=== PATIENT | male | born 2000 | race Caucasian/White ===

== ENCOUNTER 2020-01-22 15:54 | Emergency (ER) | payer MEDICAID ==
[~2020-01-22] VITALS: Ht 188 cm; Wt 80.2 kg
[2020-01-22] MEDS ORDERED: LORazepam 2 mg/ml vial IV ONE (17:10)
[2020-01-22] MEDS ORDERED: normal saline 1000ML IV soln IVB ONE (17:10)
[2020-01-22] MEDS ORDERED: pantoprazole 40 MG vial IV ONE (17:10)
[2020-01-22 17:28] LABS: BASOPHILS % (AUTO) 0.2 % (0-1); EOSINOPHILS % (AUTO) 0 % (0-6); HEMATOCRIT 44.6 % (42.0-52.0); HEMOGLOBIN 15.6 g/dl (14.0-17.9); LYMPHOCYTES # (AUTO) 1.6 X10'3 (1.1-4.8); LYMPHOCYTES % (AUTO) 10.9 % (21-51); MEAN CORPUSCULAR HEMOGLOBIN 30.7 PG (27.0-31.0); MEAN CORPUSCULAR HGB CONC 35.1 g/dL (33.0-36.5); MEAN CORPUSCULAR VOLUME 87.6 FL (78-98); MEAN PLATELET VOLUME 8.7 FL (7.4-10.4); MONOCYTES # (AUTO) 0.9 X10'3 (0-0.9); MONOCYTES % (AUTO) 6.4 % (2-12); NEUTROPHILS # (AUTO) 11.9 X10'3 (1.8-7.7); NEUTROPHILS % (AUTO) 82.5 % (42-75); PLATELET COUNT 200 X10'3 (140-440); RED BLOOD COUNT 5.09 X10'6 (4.70-6.10); RED CELL DISTRIBUTION WIDTH 12.5 % (11.5-14.5); WHITE BLOOD COUNT 14.5 X10'3 (4.5-11.0)
[2020-01-22 17:43] LABS: ALANINE AMINOTRANSFERASE 26 U/L (12-78); ALBUMIN 5.4 G/DL (3.4-5.0); ALBUMIN/GLOBULIN RATIO 1.5 (1.1-1.5); ALKALINE PHOSPHATASE 90 IU/L (20-180); ANION GAP 19 (8-16); ASPARTATE AMINO TRANSFERASE 41 U/L (10-37); BILIRUBIN,TOTAL 1.8 MG/DL (0.1-1.0); BLOOD UREA NITROGEN 22 MG/DL (7-18); BUN/CREATININE RATIO 14.1 (5.4-32.0); CALCIUM 10.5 MG/DL (8.5-10.1); CHLORIDE 97 MMOL/L (99-107); CREATININE 1.56 MG/DL (0.60-1.10); GLUCOSE 140 MG/DL (70-104); LIPASE 60 U/L (73-393); MAGNESIUM 1.4 MG/DL (1.5-2.4); SODIUM 137 MMOL/L (135-145); TOTAL CARBON DIOXIDE 21.2 MMOL/L (24-32); eGFR 58 ML/MIN
[2020-01-22 17:44] LABS: ETHANOL < 0.010 GM/DL (0.0-0.010)
[2020-01-22 17:47] LABS: POTASSIUM 2.8 MMOL/L (3.5-5.1)
[2020-01-22 17:54] LABS: PARTIAL THROMBOPLASTIN TIME 26 SECONDS (22-32)
[2020-01-22] MEDS ORDERED: potassium Cl 10 mEq/100mL bag IV ONE ×2 (18:05→19:30)
[2020-01-22] MEDS ORDERED: magnesium 2GM in 50ml NS 50 ML IV ONE ×2 (18:05→20:30)
[2020-01-22] MEDS ORDERED: ondansetron/PF 4mg/2ml inj IV ONE (19:50)
[2020-01-22] MEDS ORDERED: ONDA4TAB6 PO (20:38)
--- NOTE | 2020-01-22 20:49 | NUR ---
Pt walked out of room, after admitting to unhooking IV and undoing bed lock. reasured pt, updated on care plan and that can dc after electrolyte replacement is finished per
[2020-01-22 21:06] VITALS: BP 112/64
== END 2020-01-22 21:07 | disposition home or self-care (01) ==
LOC: ER 15:56
DX: E87.6 Hypokalemia (principal); E83.42 Hypomagnesemia; R10.32 Left lower quadrant pain; K92.0 Hematemesis; F15.90 Other stimulant use, unspecified, uncomplicated; Z98.890 Other specified postprocedural states; Z79.899 Other long term (current) drug therapy
CPT/HCPCS: 36415; 80053; 80320; 83690; 83735; 85025; 85610; 85730; 93005; 96365; 96366; 96368; 96375; 99284; C9113; J2060; J2405; J3475; J3480; J7030

== ENCOUNTER 2020-01-24 08:48 | Emergency (ER) | payer MEDICAID ==
[~2020-01-24] VITALS: Ht 188 cm; Wt 79.5 kg
[~2020-01-24 08:48] MED LIST: ONDA4TAB6 PO
[2020-01-24 09:03] VITALS: BP 160/81
--- NOTE | 2020-01-24 09:29 | NUR ---
PT ACTIVELY VOMITING WAITING FOR A LAB DRAW, ASKS FOR A GLASS OF WATER. INSTRUCT PT NO DRINKING UNTIL HE SEES THE DOCTOR. PT THEN LEAVES.
--- NOTE | 2020-01-24 09:39 | NUR ---
Attempted to call patient via listed number due to leaving ED prior to being seen. No answer; left voice mail.
== END 2020-01-24 09:36 | disposition left against medical advice (07) ==
LOC: ER 08:48
DX: R10.9 Unspecified abdominal pain (principal); R11.10 Vomiting, unspecified; Z53.21 Procedure and treatment not carried out due to patient leaving prior to being seen by health care provider

== ENCOUNTER 2020-06-12 20:01 | Emergency (ER) | payer MEDICAID ==
[~2020-06-12] VITALS: Ht 182.9 cm; Wt 68.2 kg
[2020-06-12 20:13] VITALS: BP 150/74
--- NOTE | 2020-06-12 20:54 | NUR ---
MUNIRA [phone] GIRLFRIEND CALL WITH UPDATE
[2020-06-12] MEDS ORDERED: normal saline 1000ml 1,000 ML IV ONE (22:15)
[2020-06-12] MEDS ORDERED: pantoprazole 40 MG vial IV ONE (22:15)
[2020-06-12] MEDS ORDERED: proCHLORperazine 10 MG/2 ml inj IV ONE (22:15)
[2020-06-12] MEDS ORDERED: haloperidol lactate 5mg/ml inj IM ONE (22:15)
[2020-06-12] MEDS ORDERED: famotidine/PF 10 mg/ml inj IV ONE (22:15)
[2020-06-12] MEDS ORDERED: ondansetron/PF 4mg/2ml inj IV ONE (22:15)
== END 2020-06-12 23:27 | disposition home or self-care (01) ==
LOC: ER 20:02
DX: R11.15 Cyclical vomiting syndrome unrelated to migraine (principal); R11.2 Nausea with vomiting, unspecified; K22.6 Gastro-esophageal laceration-hemorrhage syndrome; F12.90 Cannabis use, unspecified, uncomplicated; F15.90 Other stimulant use, unspecified, uncomplicated; Z98.890 Other specified postprocedural states; Z79.899 Other long term (current) drug therapy
CPT/HCPCS: 96361; 96372; 96374; 96375; 99284; C9113; J0780; J1630; J2405; J3490; J7030

== ENCOUNTER 2020-10-30 15:13 | Emergency (ER) | payer MEDICAID ==
[~2020-10-30] VITALS: Ht 185.4 cm; Wt 80.0 kg
[~2020-10-30 15:13] MED LIST changes: +NO HOME MEDS; -ONDA4TAB6 PO
[2020-10-30] MEDS ORDERED: diphenhydrAMINE 50 mg/ml inj IV ONE (15:20)
[2020-10-30] MEDS ORDERED: haloperidol lactate 5mg/ml inj IM ONE (15:20)
[2020-10-30] MEDS ORDERED: normal saline 1000ML IV soln IVB ONE ×3 (15:20→18:30)
[2020-10-30] MEDS ORDERED: LORazepam 2 mg/ml vial IV ONE (15:20)
[2020-10-30] MEDS ORDERED: magnesium 2GM in 50ml NS 50 ML IV ONE (15:20)
[2020-10-30 15:57] LABS: BASOPHILS # (AUTO) 0.1 X10'3 (0-0.2); BASOPHILS % (AUTO) 0.4 % (0-1); EOSINOPHILS % (AUTO) 0.1 % (0-6); HEMATOCRIT 41.7 % (42.0-52.0); HEMOGLOBIN 14.3 g/dl (14.0-17.9); LYMPHOCYTES # (AUTO) 1.2 X10'3 (1.1-4.8); LYMPHOCYTES % (AUTO) 10.2 % (21-51); MEAN CORPUSCULAR HGB CONC 34.3 g/dL (33.0-36.5); MEAN CORPUSCULAR VOLUME 87.5 FL (78-98); MEAN PLATELET VOLUME 8.7 FL (7.4-10.4); MONOCYTES # (AUTO) 0.7 X10'3 (0-0.9); MONOCYTES % (AUTO) 6.3 % (2-12); NEUTROPHILS # (AUTO) 9.4 X10'3 (1.8-7.7); PLATELET COUNT 198 X10'3 (140-440); RED BLOOD COUNT 4.76 X10'6 (4.70-6.10); RED CELL DISTRIBUTION WIDTH 12.7 % (11.5-14.5); WHITE BLOOD COUNT 11.4 X10'3 (4.5-11.0)
[2020-10-30 16:19] LABS: ALANINE AMINOTRANSFERASE 23 U/L (12-78); ALBUMIN 4.7 G/DL (3.4-5.0); ALBUMIN/GLOBULIN RATIO 1.6 (1.1-1.5); ALKALINE PHOSPHATASE 92 IU/L (20-180); ANION GAP 16 (8-16); ASPARTATE AMINO TRANSFERASE 18 U/L (10-37); BILIRUBIN,TOTAL 0.6 MG/DL (0.1-1.0); BLOOD UREA NITROGEN 17 MG/DL (7-18); BUN/CREATININE RATIO 15.6 (5.4-32.0); CALCIUM 9.2 MG/DL (8.5-10.1); CHLORIDE 105 MMOL/L (99-107); CREATININE 1.09 MG/DL (0.60-1.10); GLUCOSE 130 MG/DL (70-104); LIPASE 57 U/L (73-393); POTASSIUM 3.1 MMOL/L (3.5-5.1); SODIUM 142 MMOL/L (135-145); TOTAL CARBON DIOXIDE 21.2 MMOL/L (24-32); TOTAL PROTEIN 7.7 G/DL (6.4-8.2); eGFR 86 ML/MIN
[2020-10-30] MEDS ORDERED: LURA20TA PO (17:11)
[2020-10-30] MEDS ORDERED: MULT-1085 PO (17:11)
[2020-10-30] MEDS ORDERED: potassium Cl 20 mEq SR tablet PO STA (17:34)
[2020-10-30 17:37] LABS: CLARITY,URINE CLEAR (Clear); COLOR,URINE YELLOW (Yellow); GLUCOSE, URINE NEGATIVE (Neg); KETONES,URINE >=80 mg/dl (Neg); LEUKOCYTE ESTERASE ,URINE NEGATIVE (Neg); NITRITES, URINE NEGATIVE (Neg); OCCULT BLOOD,URINE NEGATIVE (Neg); PH,URINE >=9.0 (4.8-8.0); PROTEIN,URINE TRACE mg/dl (Neg); UROBILINOGEN,URINE 0.2 E.U/dL (0.2-1.0)
[2020-10-30 18:06] LABS: UA COLLECTION TYPE CLN CATCH MIDSTREAM
[2020-10-30 18:08] LABS: BACTERIA,URINE NONE SEEN /HPF (Neg); MUCUS STRANDS FEW /LPF (Neg); RBC,URINE 0-2 /HPF (0-2); SQUAMOUS EPITHELIAL CELL,UR FEW /LPF (FEW); WBC,URINE 0-4 /HPF (0-4)
[2020-10-30] MEDS ORDERED: ONDA4TAB12 PO (18:39)
[2020-10-30] MEDS ORDERED: POTA20TA19 PO (18:39)
[2020-10-30 18:51] VITALS: BP 135/77
== END 2020-10-30 20:38 | disposition home or self-care (01) ==
LOC: ER 15:14
DX: R11.15 Cyclical vomiting syndrome unrelated to migraine (principal); R11.2 Nausea with vomiting, unspecified; R10.33 Periumbilical pain; K59.00 Constipation, unspecified; F12.90 Cannabis use, unspecified, uncomplicated; F15.90 Other stimulant use, unspecified, uncomplicated; Z98.890 Other specified postprocedural states; Z72.89 Other problems related to lifestyle; Z79.899 Other long term (current) drug therapy
CPT/HCPCS: 36415; 80053; 81001; 83690; 85025; 96365; 96366; 96372; 96375; 99284; J1200; J1630; J2060; J3475; J7030

== ENCOUNTER 2020-11-01 10:26 | Emergency (ER) | payer MEDICAID ==
[~2020-11-01] VITALS: Ht 188 cm; Wt 79.5 kg
[~2020-11-01 10:26] MED LIST changes: +LURA20TA PO; +MULT-1085 PO; +ONDA4TAB12 PO; +POTA20TA19 PO
[2020-11-01] MEDS ORDERED: diphenhydrAMINE 50 mg/ml inj IV ONE (14:10)
[2020-11-01] MEDS ORDERED: haloperidol lactate 5mg/ml inj IM ONE (14:10)
[2020-11-01] MEDS ORDERED: ondansetron/PF 4mg/2ml inj IV ONE (14:10)
[2020-11-01] MEDS ORDERED: LORazepam 2 mg/ml vial IV ONE (14:10)
[2020-11-01] MEDS ORDERED: normal saline 1000ml 1,000 ML IV ONE (14:10)
[2020-11-01 14:33] LABS: BASOPHILS % (AUTO) 0.2 % (0-1); EOSINOPHILS % (AUTO) 0 % (0-6); HEMATOCRIT 41.9 % (42.0-52.0); HEMOGLOBIN 14.3 g/dl (14.0-17.9); LYMPHOCYTES # (AUTO) 0.8 X10'3 (1.1-4.8); LYMPHOCYTES % (AUTO) 7.4 % (21-51); MEAN CORPUSCULAR HGB CONC 34.2 g/dL (33.0-36.5); MEAN CORPUSCULAR VOLUME 87.9 FL (78-98); MEAN PLATELET VOLUME 8.8 FL (7.4-10.4); MONOCYTES # (AUTO) 0.4 X10'3 (0-0.9); MONOCYTES % (AUTO) 3.6 % (2-12); NEUTROPHILS # (AUTO) 9.3 X10'3 (1.8-7.7); NEUTROPHILS % (AUTO) 88.8 % (42-75); PLATELET COUNT 206 X10'3 (140-440); RED BLOOD COUNT 4.77 X10'6 (4.70-6.10); RED CELL DISTRIBUTION WIDTH 12.9 % (11.5-14.5); WHITE BLOOD COUNT 10.5 X10'3 (4.5-11.0)
[2020-11-01 14:52] LABS: ALANINE AMINOTRANSFERASE 30 U/L (12-78); ALBUMIN 4.9 G/DL (3.4-5.0); ALBUMIN/GLOBULIN RATIO 1.5 (1.1-1.5); ALKALINE PHOSPHATASE 94 IU/L (20-180); ANION GAP 15 (8-16); ASPARTATE AMINO TRANSFERASE 30 U/L (10-37); BILIRUBIN,TOTAL 0.6 MG/DL (0.1-1.0); BLOOD UREA NITROGEN 15 MG/DL (7-18); BUN/CREATININE RATIO 15.6 (5.4-32.0); CALCIUM 9.4 MG/DL (8.5-10.1); CHLORIDE 101 MMOL/L (99-107); CREATININE 0.96 MG/DL (0.60-1.10); GLUCOSE 121 MG/DL (70-104); LIPASE 99 U/L (73-393); POTASSIUM 3.3 MMOL/L (3.5-5.1); SODIUM 138 MMOL/L (135-145); TOTAL CARBON DIOXIDE 21.9 MMOL/L (24-32); TOTAL PROTEIN 8.1 G/DL (6.4-8.2); eGFR > 90 ML/MIN
[2020-11-01 15:01] LABS: CLARITY,URINE CLEAR (Clear); COLOR,URINE YELLOW (Yellow); GLUCOSE, URINE NEGATIVE (Neg); KETONES,URINE TRACE mg/dl (Neg); LEUKOCYTE ESTERASE ,URINE NEGATIVE (Neg); NITRITES, URINE NEGATIVE (Neg); OCCULT BLOOD,URINE NEGATIVE (Neg); PH,URINE 8.5 (4.8-8.0); PROTEIN,URINE TRACE mg/dl (Neg); UROBILINOGEN,URINE 0.2 E.U/dL (0.2-1.0)
[2020-11-01] MEDS ORDERED: potassium Cl 20 mEq SR tablet PO ONE (15:05)
[2020-11-01] MEDS ORDERED: PROC25SU31 RC (15:07)
[2020-11-01 15:09] LABS: UA COLLECTION TYPE VOIDED
[2020-11-01 15:10] LABS: BACTERIA,URINE NONE SEEN /HPF (Neg); MUCUS STRANDS FEW /LPF (Neg); RBC,URINE 0-2 /HPF (0-2); SQUAMOUS EPITHELIAL CELL,UR FEW /LPF (FEW); WBC,URINE 0-4 /HPF (0-4)
[2020-11-01 15:25] VITALS: BP 128/58
== END 2020-11-01 15:27 | disposition home or self-care (01) ==
LOC: ER 10:26
DX: R11.2 Nausea with vomiting, unspecified (principal); R10.84 Generalized abdominal pain; F12.90 Cannabis use, unspecified, uncomplicated; F15.90 Other stimulant use, unspecified, uncomplicated; Z72.89 Other problems related to lifestyle; Z98.890 Other specified postprocedural states; Z79.899 Other long term (current) drug therapy
CPT/HCPCS: 36415; 80053; 81001; 83690; 85025; 96361; 96372; 96374; 96375; 99284; J1200; J1630; J2060; J2405; J7030

== ENCOUNTER 2020-11-04 16:18 | Emergency (ER) | payer MEDICAID ==
[~2020-11-04] VITALS: Ht 188 cm; Wt 79.5 kg
[~2020-11-04 16:18] MED LIST changes: -NO HOME MEDS; +PROC25SU31 RC
[2020-11-04 17:06] LABS: BASOPHILS # (AUTO) 0.1 X10'3 (0-0.2); BASOPHILS % (AUTO) 0.5 % (0-1); EOSINOPHILS # (AUTO) 0.2 X10'3 (0-0.9); EOSINOPHILS % (AUTO) 2.2 % (0-6); HEMATOCRIT 44.9 % (42.0-52.0); HEMOGLOBIN 15.3 g/dl (14.0-17.9); LYMPHOCYTES % (AUTO) 20.1 % (21-51); MEAN CORPUSCULAR HEMOGLOBIN 29.7 PG (27.0-31.0); MEAN CORPUSCULAR VOLUME 87.5 FL (78-98); MEAN PLATELET VOLUME 8.4 FL (7.4-10.4); MONOCYTES # (AUTO) 0.7 X10'3 (0-0.9); MONOCYTES % (AUTO) 7.3 % (2-12); NEUTROPHILS # (AUTO) 7.1 X10'3 (1.8-7.7); NEUTROPHILS % (AUTO) 69.9 % (42-75); PLATELET COUNT 245 X10'3 (140-440); RED BLOOD COUNT 5.13 X10'6 (4.70-6.10); RED CELL DISTRIBUTION WIDTH 13.1 % (11.5-14.5); WHITE BLOOD COUNT 10.1 X10'3 (4.5-11.0)
[2020-11-04 17:20] LABS: ALANINE AMINOTRANSFERASE 33 U/L (12-78); ALBUMIN 4.7 G/DL (3.4-5.0); ALBUMIN/GLOBULIN RATIO 1.3 (1.1-1.5); ALKALINE PHOSPHATASE 99 IU/L (20-180); ANION GAP 10 (8-16); ASPARTATE AMINO TRANSFERASE 23 U/L (10-37); BILIRUBIN,TOTAL 0.8 MG/DL (0.1-1.0); BLOOD UREA NITROGEN 23 MG/DL (7-18); BUN/CREATININE RATIO 20.4 (5.4-32.0); CALCIUM 9.5 MG/DL (8.5-10.1); CHLORIDE 104 MMOL/L (99-107); CREATININE 1.13 MG/DL (0.60-1.10); GLUCOSE 92 MG/DL (70-104); POTASSIUM 3.4 MMOL/L (3.5-5.1); SODIUM 140 MMOL/L (135-145); TOTAL CARBON DIOXIDE 25.8 MMOL/L (24-32); TOTAL PROTEIN 8.2 G/DL (6.4-8.2); eGFR 83 ML/MIN
[2020-11-04 17:32] LABS: ETHANOL < 0.010 GM/DL (0.0-0.010)
[2020-11-04 18:04] LABS: CLARITY,URINE CLOUDY (Clear); COLOR,URINE YELLOW (Yellow); GLUCOSE, URINE NEGATIVE (Neg); KETONES,URINE NEGATIVE (Neg); LEUKOCYTE ESTERASE ,URINE NEGATIVE (Neg); NITRITES, URINE NEGATIVE (Neg); OCCULT BLOOD,URINE NEGATIVE (Neg); PH,URINE 5.5 (4.8-8.0); PROTEIN,URINE 100 mg/dl (Neg)
[2020-11-04 18:07] LABS: UA COLLECTION TYPE CLN CATCH MIDSTREAM
[2020-11-04 18:13] LABS: MUCUS STRANDS MANY /LPF (Neg); SQUAMOUS EPITHELIAL CELL,UR FEW /LPF (FEW)
[2020-11-04 18:14] LABS: BACTERIA,URINE 1+ /HPF (Neg); RBC,URINE 0-2 /HPF (0-2); URINE AMPHETAMINE SCREEN POSITIVE (Neg); URINE BARBITUATE SCREEN NEGATIVE (Neg); URINE BENZODIAZEPINES SCREEN NEGATIVE (Neg); URINE CANNABINOID SCREEN POSITIVE (Neg); URINE COCAINE SCREEN NEGATIVE (Neg); URINE METHADONE SCREEN NEGATIVE (Neg); URINE OPIATE SCREEN NEGATIVE (Neg); URINE PHENCYCLIDINE SCREEN NEGATIVE (Neg)
--- NOTE | 2020-11-04 18:27 | NUR ---
Patient has attempted to hang himself recently.
[2020-11-04] MEDS ORDERED: ONDA-103 PO (18:48)
[2020-11-04] MEDS ORDERED: lurasidone 20mg tablet PO SCH (19:00)
[2020-11-04] MEDS ORDERED: ondansetron 4mg rapidly disintigrating tab PO PRN (19:05)
--- NOTE | 2020-11-04 20:36 | NUR ---
Pt tearful at start of shift. He denied current SI but said he was ashamed of his earlier attempt to hang himself which his girlfriend witnessed. He did not know how his girlfriend was feeling and he could not call her because he broke the home phone in an attemp to keep her from calling the police. Shortly after that his girlfriend called pt spoke to her and became calmer and not tearful. Med recondilliation completed with pt. He took Latuda and Trazodone is resting queitly in bed at this time.
[2020-11-04] MEDS ORDERED: traZODone 50mg tablet PO SCH ×2 (21:00→21:05)
--- NOTE | 2020-11-05 02:40 | NUR ---
Pt has been sleeping without interuption.
--- NOTE | 2020-11-05 06:30 | NUR ---
Pt is sleeping on right side, respirations even and unlabored.
--- NOTE | 2020-11-05 06:58 | NUR ---
PT'S FATHER, RAVEN CALLED. HIS PHONE NUMBER IS [phone].
--- NOTE | 2020-11-05 08:35 | NUR ---
Pt sleeping in supine position, no distress noted. Pt ate 100% of his breakfast.
--- NOTE | 2020-11-05 08:43 | NUR ---
PACKET FAXED TO [facility]
--- NOTE | 2020-11-05 10:08 | NUR ---
Patient appears to be sleeping, no signs/symptoms of distress.
--- NOTE | 2020-11-05 11:04 | NUR ---
PT'S GIRLFRIEND, GUTIERREZ LOPEZNARY CALLED TO SEE WHEN THE PT WILL BE DISCHARGED. I TOLD HER THE PT WILL CONTACT HER WHEN THAT TIME COMES. HER PHONE NUMBER IS [phone].
--- NOTE | 2020-11-05 12:31 | NUR ---
Pt sitting on bed eating a snack. Pt has a follow up appointment with [facility] tomorrow 11/06 at 1230.
--- NOTE | 2020-11-05 13:09 | NUR ---
Left message with Tami to call unit. Pt is ready for discharge and needs a ride.
[2020-11-05 13:27] VITALS: BP 121/63
--- NOTE | 2020-11-05 13:36 | NUR ---
DISCHARGE NOTE: Patient was discharged from unit at 1333. Pt was escorted to lobby with security. Pt's fiance' was here to pick him up. Pt denies S/I, H/I, A/VH. Pt was A&Ox4. Pt left with all personal belongings. Discharge instructions were reviewed with patient and pt verbalized understanding. Pt has a follow up appointment with [facility] tomorrow 11/06 at 1230.
== END 2020-11-05 13:37 | disposition home or self-care (01) ==
LOC: ER 16:19
DX: T14.91XA Suicide attempt, initial encounter (principal); F31.9 Bipolar disorder, unspecified; F12.90 Cannabis use, unspecified, uncomplicated; F15.90 Other stimulant use, unspecified, uncomplicated; Z72.89 Other problems related to lifestyle; Z98.890 Other specified postprocedural states; Z79.899 Other long term (current) drug therapy; X83.8XXA Intentional self-harm by other specified means, initial encounter; Y93.89 Activity, other specified; Y92.89 Other specified places as the place of occurrence of the external cause; Y99.8 Other external cause status
CPT/HCPCS: 36415; 80053; 80305; 80320; 81001; 84443; 85025; 99284

== ENCOUNTER 2020-11-08 23:41 | Emergency (ER) | payer MEDICAID ==
[~2020-11-08] VITALS: Ht 188 cm; Wt 79.5 kg
[~2020-11-08 23:41] MED LIST changes: -MULT-1085 PO; +ONDA-103 PO; -ONDA4TAB12 PO; -POTA20TA19 PO; -PROC25SU31 RC
[2020-11-08] MEDS ORDERED: normal saline 1000ml 1,000 ML IV ONE (23:55)
[2020-11-08] MEDS ORDERED: diphenhydrAMINE 50 mg/ml inj IV ONE (23:55)
[2020-11-08] MEDS ORDERED: haloperidol lactate 5mg/ml inj IM ONE (23:55)
[2020-11-09 01:07] VITALS: BP 121/61
[2020-11-10] MEDS ORDERED: ONDA4TAB6 PO (09:16)
[2020-11-10] MEDS ORDERED: PROC25SU31 RC (09:16)
== END 2020-11-09 01:39 | disposition home or self-care (01) ==
LOC: ER 23:41
DX: R11.2 Nausea with vomiting, unspecified (principal); F12.90 Cannabis use, unspecified, uncomplicated; F15.90 Other stimulant use, unspecified, uncomplicated; Z72.89 Other problems related to lifestyle; Z98.890 Other specified postprocedural states; Z79.899 Other long term (current) drug therapy
CPT/HCPCS: 96361; 96372; 96374; 99284; J1200; J1630; J7030

== ENCOUNTER 2020-11-10 09:08 | Emergency (ER) | payer MEDICAID ==
[~2020-11-10] VITALS: Ht 188 cm; Wt 79.5 kg
[2020-11-10] MEDS ORDERED: haloperidol lactate 5mg/ml inj IM ONE (09:15)
[2020-11-10] MEDS ORDERED: normal saline 1000ML IV soln IVB ONE (09:15)
[2020-11-10] MEDS ORDERED: ondansetron/PF 4mg/2ml inj IV ONE (09:15)
[2020-11-10] MEDS ORDERED: PROC25SU31 RC (09:16)
[2020-11-10] MEDS ORDERED: ONDA4TAB6 PO (09:16)
[2020-11-10 10:03] LABS: ALBUMIN 4.7 G/DL (3.4-5.0); ANION GAP 13 (8-16); BLOOD UREA NITROGEN 20 MG/DL (7-18); BUN/CREATININE RATIO 19.8 (5.4-32.0); CALCIUM 9.3 MG/DL (8.5-10.1); CHLORIDE 100 MMOL/L (99-107); CREATININE 1.01 MG/DL (0.60-1.10); GLUCOSE 131 MG/DL (70-104); POTASSIUM 3.2 MMOL/L (3.5-5.1); SODIUM 136 MMOL/L (135-145); TOTAL CARBON DIOXIDE 23.4 MMOL/L (24-32); eGFR > 90 ML/MIN
[2020-11-10] MEDS ORDERED: potassium Cl 20 mEq SR tablet PO STA (10:07)
[2020-11-10 11:54] VITALS: BP 147/89
== END 2020-11-10 11:55 | disposition home or self-care (01) ==
LOC: ER 09:08
DX: F12.188 Cannabis abuse with other cannabis-induced disorder (principal); E87.6 Hypokalemia; R10.84 Generalized abdominal pain; F15.90 Other stimulant use, unspecified, uncomplicated; Z72.89 Other problems related to lifestyle; Z79.899 Other long term (current) drug therapy
CPT/HCPCS: 36415; 80048; 96361; 96372; 96374; 99284; J1630; J2405; J7030

== ENCOUNTER 2020-12-11 06:11 | Emergency (ER) | payer MEDICAID ==
[~2020-12-11] VITALS: Ht 188 cm; Wt 78.2 kg
[~2020-12-11 06:11] MED LIST changes: +ONDA4TAB6 PO; +PROC25SU31 RC
[2020-12-11] MEDS ORDERED: ondansetron/PF 4mg/2ml inj IV ONE (06:35)
[2020-12-11] MEDS ORDERED: normal saline 1000ML IV soln IVB ONE (06:35)
[2020-12-11] MEDS ORDERED: ondansetron 4mg rapidly disintigrating tab PO ONE (06:35)
[2020-12-11 07:09] LABS: BASOPHILS % (AUTO) 0.2 % (0-1); EOSINOPHILS # (AUTO) 0.1 X10'3 (0-0.9); EOSINOPHILS % (AUTO) 0.6 % (0-6); HEMOGLOBIN 14.2 g/dl (14.0-17.9); LYMPHOCYTES # (AUTO) 2.3 X10'3 (1.1-4.8); LYMPHOCYTES % (AUTO) 16.6 % (21-51); MEAN CORPUSCULAR HGB CONC 34.7 g/dL (33.0-36.5); MEAN CORPUSCULAR VOLUME 86.4 FL (78-98); MEAN PLATELET VOLUME 8.5 FL (7.4-10.4); MONOCYTES # (AUTO) 1.1 X10'3 (0-0.9); MONOCYTES % (AUTO) 7.9 % (2-12); NEUTROPHILS # (AUTO) 10.2 X10'3 (1.8-7.7); NEUTROPHILS % (AUTO) 74.7 % (42-75); PLATELET COUNT 239 X10'3 (140-440); RED BLOOD COUNT 4.75 X10'6 (4.70-6.10); RED CELL DISTRIBUTION WIDTH 12.6 % (11.5-14.5); WHITE BLOOD COUNT 13.6 X10'3 (4.5-11.0)
[2020-12-11 07:15] LABS: CLARITY,URINE SLIGHTLY CLOUDY (Clear); COLOR,URINE YELLOW (Yellow); GLUCOSE, URINE NEGATIVE (Neg); KETONES,URINE TRACE mg/dl (Neg); LEUKOCYTE ESTERASE ,URINE TRACE (Neg); NITRITES, URINE NEGATIVE (Neg); OCCULT BLOOD,URINE NEGATIVE (Neg); PH,URINE 5.5 (4.8-8.0); PROTEIN,URINE 30 mg/dl (Neg)
[2020-12-11 07:21] LABS: UA COLLECTION TYPE CLN CATCH MIDSTREAM
[2020-12-11 07:23] LABS: MUCUS STRANDS MANY /LPF (Neg); SQUAMOUS EPITHELIAL CELL,UR FEW /LPF (FEW)
[2020-12-11 07:25] LABS: COARSE GRANULAR CAST 0-3 /LPF (NEGATIVE); FINE GRANULAR CAST 0-3 /LPF (NEGATIVE)
[2020-12-11 07:27] LABS: BACTERIA,URINE NONE SEEN /HPF (Neg); RBC,URINE 0-2 /HPF (0-2)
[2020-12-11 07:30] LABS: HYALINE CASTS 0-3 /LPF (NEGATIVE)
[2020-12-11 07:32] LABS: URINE AMPHETAMINE SCREEN NEGATIVE (Neg); URINE BARBITUATE SCREEN NEGATIVE (Neg); URINE BENZODIAZEPINES SCREEN NEGATIVE (Neg); URINE CANNABINOID SCREEN POSITIVE (Neg); URINE COCAINE SCREEN NEGATIVE (Neg); URINE METHADONE SCREEN NEGATIVE (Neg); URINE OPIATE SCREEN NEGATIVE (Neg); URINE PHENCYCLIDINE SCREEN NEGATIVE (Neg)
[2020-12-11 07:34] LABS: ALANINE AMINOTRANSFERASE 32 U/L (12-78); ALBUMIN 4.8 G/DL (3.4-5.0); ALBUMIN/GLOBULIN RATIO 1.5 (1.1-1.5); ALKALINE PHOSPHATASE 86 IU/L (20-180); ANION GAP 13 (8-16); ASPARTATE AMINO TRANSFERASE 23 U/L (10-37); BILIRUBIN,TOTAL 0.6 MG/DL (0.1-1.0); BLOOD UREA NITROGEN 25 MG/DL (7-18); BUN/CREATININE RATIO 22.9 (5.4-32.0); CHLORIDE 102 MMOL/L (99-107); CREATININE 1.09 MG/DL (0.60-1.10); GLUCOSE 124 MG/DL (70-104); LIPASE 65 U/L (73-393); MAGNESIUM 1.7 MG/DL (1.5-2.4); SODIUM 142 MMOL/L (135-145); TOTAL CARBON DIOXIDE 26.9 MMOL/L (24-32); TOTAL PROTEIN 8.1 G/DL (6.4-8.2); eGFR 86 ML/MIN
[2020-12-11 07:37] LABS: POTASSIUM 2.8 MMOL/L (3.5-5.1)
[2020-12-11] MEDS ORDERED: potassium Cl 10 mEq/100mL bag IV ONE ×2 (07:45)
[2020-12-11] MEDS ORDERED: magnesium 2GM in 50ml NS 50 ML IV ONE (07:45)
[2020-12-11] MEDS ORDERED: LORazepam 2 mg/ml vial IV ONE (08:30)
[2020-12-11] MEDS ORDERED: haloperidol lactate 5mg/ml inj IM ONE (08:30)
[2020-12-11] MEDS ORDERED: POTA10TA36 PO (10:39)
[2020-12-11] MEDS ORDERED: PROC-8 PO (10:39)
[2020-12-11 11:50] VITALS: BP 102/60
== END 2020-12-11 11:52 | disposition home or self-care (01) ==
LOC: ER 06:13
DX: K52.9 Noninfective gastroenteritis and colitis, unspecified (principal); Z20.822 Contact with and (suspected) exposure to COVID-19; E87.6 Hypokalemia; R11.15 Cyclical vomiting syndrome unrelated to migraine; R11.2 Nausea with vomiting, unspecified; F12.90 Cannabis use, unspecified, uncomplicated; F15.90 Other stimulant use, unspecified, uncomplicated; Z98.890 Other specified postprocedural states; Z72.89 Other problems related to lifestyle; Z79.899 Other long term (current) drug therapy
CPT/HCPCS: 36415; 80053; 80305; 81001; 83690; 83735; 85025; 87088; 87635; 93005; 96365; 96366; 96368; 96372; 96375; 99285; C9803; J1630; J2060; J2405; J3475; J3480; J7030

== ENCOUNTER 2021-01-16 12:33 | Emergency (ER) | payer MEDICAID ==
[~2021-01-16] VITALS: Ht 188 cm; Wt 77.8 kg
[~2021-01-16 12:33] MED LIST changes: +POTA10TA36 PO; +PROC-8 PO; -PROC25SU31 RC
[2021-01-16] MEDS ORDERED: LORazepam 2 mg/ml vial IV ONE (12:40)
[2021-01-16] MEDS ORDERED: potassium Cl 10 mEq/100mL bag IV ONE (12:40)
[2021-01-16] MEDS ORDERED: haloperidol lactate 5mg/ml inj IM ONE (12:40)
[2021-01-16] MEDS ORDERED: potassium Cl 20 mEq SR tablet PO ONE (12:40)
[2021-01-16] MEDS ORDERED: normal saline 1000ML IV soln IVB ONE (12:40)
[2021-01-16] MEDS ORDERED: famotidine/PF 10 mg/ml inj IV ONE (12:40)
[2021-01-16] MEDS ORDERED: magnesium 2GM in 50ml NS 50 ML IV ONE (12:40)
[2021-01-16 12:57] LABS: BASOPHILS % (AUTO) 0.3 % (0-1); EOSINOPHILS % (AUTO) 0.2 % (0-6); HEMATOCRIT 44.3 % (42.0-52.0); LYMPHOCYTES # (AUTO) 2.1 X10'3 (1.1-4.8); LYMPHOCYTES % (AUTO) 16.2 % (21-51); MEAN CORPUSCULAR HEMOGLOBIN 29.6 PG (27.0-31.0); MEAN CORPUSCULAR HGB CONC 33.8 g/dL (33.0-36.5); MEAN CORPUSCULAR VOLUME 87.4 FL (78-98); MEAN PLATELET VOLUME 8.2 FL (7.4-10.4); MONOCYTES # (AUTO) 0.9 X10'3 (0-0.9); MONOCYTES % (AUTO) 7.1 % (2-12); NEUTROPHILS # (AUTO) 9.9 X10'3 (1.8-7.7); NEUTROPHILS % (AUTO) 76.2 % (42-75); PLATELET COUNT 239 X10'3 (140-440); RED BLOOD COUNT 5.06 X10'6 (4.70-6.10); RED CELL DISTRIBUTION WIDTH 12.7 % (11.5-14.5)
[2021-01-16 13:09] LABS: ALANINE AMINOTRANSFERASE 29 U/L (12-78); ALBUMIN 4.9 G/DL (3.4-5.0); ALBUMIN/GLOBULIN RATIO 1.4 (1.1-1.5); ALKALINE PHOSPHATASE 96 IU/L (20-180); ANION GAP 13 (8-16); ASPARTATE AMINO TRANSFERASE 23 U/L (10-37); BILIRUBIN,TOTAL 1.1 MG/DL (0.1-1.0); BLOOD UREA NITROGEN 15 MG/DL (7-18); CALCIUM 9.3 MG/DL (8.5-10.1); CHLORIDE 99 MMOL/L (99-107); GLUCOSE 114 MG/DL (70-104); LIPASE 177 U/L (73-393); SODIUM 142 MMOL/L (135-145); TOTAL CARBON DIOXIDE 29.6 MMOL/L (24-32); TOTAL PROTEIN 8.3 G/DL (6.4-8.2); eGFR > 90 ML/MIN
[2021-01-16 13:23] LABS: POTASSIUM 2.4 MMOL/L (3.5-5.1)
[2021-01-16 14:04] LABS: MAGNESIUM 2.2 MG/DL (1.5-2.4)
--- NOTE | 2021-01-16 17:50 | NUR ---
PT PASSED PO CHALLENGE
[2021-01-16 17:51] VITALS: BP 106/71
== END 2021-01-16 17:52 | disposition home or self-care (01) ==
LOC: ER 12:33
DX: R11.15 Cyclical vomiting syndrome unrelated to migraine (principal); F12.10 Cannabis abuse, uncomplicated; F15.10 Other stimulant abuse, uncomplicated
CPT/HCPCS: 36415; 80053; 83690; 83735; 85025; 93005; 96361; 96365; 96366; 96372; 96375; 99284; J1630; J2060; J3475; J3480; J3490; J7030

== ENCOUNTER 2021-01-17 13:48 | Emergency (ER) | payer MEDICAID ==
[~2021-01-17] VITALS: Ht 188 cm; Wt 77.3 kg
[2021-01-17] MEDS ORDERED: normal saline 1000ML IV soln IVB ONE (14:15)
[2021-01-17] MEDS ORDERED: haloperidol lactate 5mg/ml inj IV ONE (14:35)
[2021-01-17] MEDS ORDERED: capsaicin 0.025% 60gm cream TP ONE (14:40)
[2021-01-17 14:52] LABS: BASOPHILS % (AUTO) 0.2 % (0-1); EOSINOPHILS % (AUTO) 0.3 % (0-6); HEMATOCRIT 43.4 % (42.0-52.0); LYMPHOCYTES # (AUTO) 1.5 X10'3 (1.1-4.8); MEAN CORPUSCULAR HEMOGLOBIN 30.1 PG (27.0-31.0); MEAN CORPUSCULAR HGB CONC 34.6 g/dL (33.0-36.5); MEAN CORPUSCULAR VOLUME 87.1 FL (78-98); MEAN PLATELET VOLUME 8.2 FL (7.4-10.4); MONOCYTES % (AUTO) 9.5 % (2-12); NEUTROPHILS # (AUTO) 7.7 X10'3 (1.8-7.7); PLATELET COUNT 251 X10'3 (140-440); RED BLOOD COUNT 4.98 X10'6 (4.70-6.10); RED CELL DISTRIBUTION WIDTH 12.6 % (11.5-14.5); WHITE BLOOD COUNT 10.3 X10'3 (4.5-11.0)
[2021-01-17 15:05] LABS: ALANINE AMINOTRANSFERASE 31 U/L (12-78); ALBUMIN 4.7 G/DL (3.4-5.0); ALBUMIN/GLOBULIN RATIO 1.4 (1.1-1.5); ALKALINE PHOSPHATASE 96 IU/L (20-180); ANION GAP 9 (8-16); ASPARTATE AMINO TRANSFERASE 22 U/L (10-37); BLOOD UREA NITROGEN 16 MG/DL (7-18); BUN/CREATININE RATIO 13.2 (5.4-32.0); CALCIUM 9.1 MG/DL (8.5-10.1); CHLORIDE 97 MMOL/L (99-107); CREATININE 1.21 MG/DL (0.60-1.10); ETHANOL < 0.010 GM/DL (0.0-0.010); GLUCOSE 111 MG/DL (70-104); LIPASE < 50 U/L (73-393); MAGNESIUM 2.4 MG/DL (1.5-2.4); SODIUM 138 MMOL/L (135-145); TOTAL PROTEIN 8.1 G/DL (6.4-8.2); eGFR 76 ML/MIN
[2021-01-17 15:22] LABS: POTASSIUM 2.6 MMOL/L (3.5-5.1)
[2021-01-17 16:32] LABS: CLARITY,URINE CLEAR (Clear); COLOR,URINE YELLOW (Yellow); GLUCOSE, URINE NEGATIVE (Neg); KETONES,URINE >=80 mg/dl (Neg); LEUKOCYTE ESTERASE ,URINE NEGATIVE (Neg); NITRITES, URINE NEGATIVE (Neg); OCCULT BLOOD,URINE NEGATIVE (Neg); PROTEIN,URINE 30 mg/dl (Neg); UA COLLECTION TYPE CLN CATCH MIDSTREAM
[2021-01-17 16:34] LABS: URINE AMPHETAMINE SCREEN NEGATIVE (Neg); URINE BARBITUATE SCREEN NEGATIVE (Neg); URINE BENZODIAZEPINES SCREEN NEGATIVE (Neg); URINE CANNABINOID SCREEN POSITIVE (Neg); URINE COCAINE SCREEN NEGATIVE (Neg); URINE METHADONE SCREEN NEGATIVE (Neg); URINE OPIATE SCREEN NEGATIVE (Neg); URINE PHENCYCLIDINE SCREEN NEGATIVE (Neg)
[2021-01-17 16:37] LABS: BACTERIA,URINE FEW /HPF (Neg); FINE GRANULAR CAST 0-3 /LPF (NEGATIVE); MUCUS STRANDS MANY /LPF (Neg); RBC,URINE NONE SEEN /HPF (0-2); SQUAMOUS EPITHELIAL CELL,UR FEW /LPF (FEW)
[2021-01-17] MEDS ORDERED: POTASSIUM BICARB 20meq eff tab 20 MEQ TABLET.EFF PO STA (17:17)
[2021-01-17] MEDS ORDERED: potassium Cl 20 mEq SR tablet PO STA (17:20)
--- NOTE | 2021-01-17 19:13 | NUR ---
Pt gave verbal approval to discuss condition with Claudine young). Pt states she will be coming to visit patient before 20:00
--- NOTE | 2021-01-17 19:37 | NUR ---
Pt vomiting. MD to order 5 mg Haldol and 1 mg ativan.
[2021-01-17] MEDS ORDERED: LORazepam 2 mg/ml vial IV ONE (19:40)
[2021-01-17] MEDS ORDERED: haloperidol lactate 5mg/ml inj IM ONE (19:40)
[2021-01-17] MEDS ORDERED: potassium Cl 40 mEq/0.45% sodium chloride IV soln 520ml IV ONE (22:05)
[2021-01-17] MEDS ORDERED: magnesium 2GM in 50ml NS 50 ML IV ONE (22:05)
[2021-01-17] MEDS ORDERED: Potassium Cl 40 MEQ in sodium chloride 0.45% 500 ML IV ONE (22:10)
[2021-01-18] MEDS ORDERED: haloperidol lactate 5mg/ml inj IM ONE ×3 (03:15→14:55)
[2021-01-18] MEDS ORDERED: Potassium Cl 40 MEQ in sodium chloride 0.45% 500 ML IV ONE (04:25)
[2021-01-18 07:11] VITALS: BP 148/79
--- NOTE | 2021-01-18 09:00 | NUR ---
Patient resting quietly, no signs/symptoms of distress.
--- NOTE | 2021-01-18 11:00 | NUR ---
Patient resting quietly, no signs/symptoms of distress.
--- NOTE | 2021-01-18 11:23 | NUR ---
[facility] Packet sent.
[2021-01-18] MEDS ORDERED: LORazepam 1 MG tablet PO ONE (14:55)
--- NOTE | 2021-01-18 15:05 | NUR ---
Patient brought over from Main ED. RN met with [facility] hardboard coating machine operator who stated patient was not going to be placed on a 5150 hold. RN went back to the OF area after speaking to Noelle who stated patient chugged a glass of water. Noelle told him to not chug water because it would make him vomit; which he did soon after coming over to bed 22. Patient asked for more medication but Dr Romero stated he would discharge him with a RX of Zofran. Continue to monitor.
--- NOTE | 2021-01-18 15:25 | NUR ---
RN advised patient that he is going home. Patient called his girlfriend who will pick him up and bring him clothes. Patient in sleeping in bed. Continue to monitor.
[2021-01-18] MEDS ORDERED: ONDA4TAB6 PO (15:28)
== END 2021-01-18 17:00 | disposition home or self-care (01) ==
LOC: ER 13:48
DX: R45.851 Suicidal ideations (principal); F12.188 Cannabis abuse with other cannabis-induced disorder; R11.2 Nausea with vomiting, unspecified; F12.10 Cannabis abuse, uncomplicated; F15.10 Other stimulant abuse, uncomplicated
CPT/HCPCS: 36415; 80053; 80305; 80320; 81001; 83690; 83735; 85025; 87088; 96365; 96366; 96368; 96372; 96375; 99285; J1630; J2060; J3475; J3480; J7030

== ENCOUNTER 2021-01-20 12:34 | Emergency (ER) | payer MEDICAID ==
[~2021-01-20] VITALS: Ht 188 cm; Wt 79.5 kg
[2021-01-20 13:49] VITALS: BP 132/109
[2021-01-20] MEDS ORDERED: normal saline 1000ML IV soln IVB ONE (13:50)
[2021-01-20 14:24] LABS: BASOPHILS % (AUTO) 0.3 % (0-1); EOSINOPHILS % (AUTO) 0 % (0-6); LYMPHOCYTES # (AUTO) 0.6 X10'3 (1.1-4.8); LYMPHOCYTES % (AUTO) 4.7 % (21-51); MEAN CORPUSCULAR HEMOGLOBIN 30.4 PG (27.0-31.0); MEAN CORPUSCULAR HGB CONC 34.9 g/dL (33.0-36.5); MEAN PLATELET VOLUME 7.9 FL (7.4-10.4); MONOCYTES # (AUTO) 0.5 X10'3 (0-0.9); MONOCYTES % (AUTO) 4.2 % (2-12); NEUTROPHILS # (AUTO) 11.5 X10'3 (1.8-7.7); NEUTROPHILS % (AUTO) 90.8 % (42-75); PLATELET COUNT 301 X10'3 (140-440); RED BLOOD COUNT 4.94 X10'6 (4.70-6.10); RED CELL DISTRIBUTION WIDTH 12.8 % (11.5-14.5); WHITE BLOOD COUNT 12.7 X10'3 (4.5-11.0)
[2021-01-20 14:46] LABS: ALANINE AMINOTRANSFERASE 42 U/L (12-78); ALBUMIN 4.9 G/DL (3.4-5.0); ALBUMIN/GLOBULIN RATIO 1.5 (1.1-1.5); ALKALINE PHOSPHATASE 95 IU/L (20-180); ANION GAP 12 (8-16); ASPARTATE AMINO TRANSFERASE 36 U/L (10-37); BILIRUBIN,TOTAL 0.8 MG/DL (0.1-1.0); BLOOD UREA NITROGEN 13 MG/DL (7-18); BUN/CREATININE RATIO 11.4 (5.4-32.0); CALCIUM 9.4 MG/DL (8.5-10.1); CHLORIDE 99 MMOL/L (99-107); CREATINE KINASE 801 U/L (39-308); CREATININE 1.14 MG/DL (0.60-1.10); GLUCOSE 132 MG/DL (70-104); LIPASE 55 U/L (73-393); SODIUM 140 MMOL/L (135-145); TOTAL CARBON DIOXIDE 29.4 MMOL/L (24-32); TOTAL PROTEIN 8.2 G/DL (6.4-8.2); eGFR 82 ML/MIN
[2021-01-20 14:48] LABS: POTASSIUM 2.9 MMOL/L (3.5-5.1)
[2021-01-20] MEDS ORDERED: potassium Cl 20 mEq SR tablet PO STA (15:11)
[2021-01-20] MEDS ORDERED: LORazepam 2 mg/ml vial IV ONE (15:15)
[2021-01-20] MEDS ORDERED: haloperidol lactate 5mg/ml inj IM ONE (15:15)
[2021-01-20] MEDS ORDERED: potassium Cl 10 mEq/100mL bag IV ONE (15:15)
[2021-01-20] MEDS ORDERED: magnesium 2GM in 50ml NS 50 ML IV ONE (15:15)
== END 2021-01-20 18:41 | disposition left against medical advice (07) ==
LOC: ER 12:35
DX: E87.6 Hypokalemia (principal); R10.9 Unspecified abdominal pain; R11.15 Cyclical vomiting syndrome unrelated to migraine; R11.2 Nausea with vomiting, unspecified; F12.90 Cannabis use, unspecified, uncomplicated; F15.90 Other stimulant use, unspecified, uncomplicated; Z72.89 Other problems related to lifestyle; Z79.899 Other long term (current) drug therapy
CPT/HCPCS: 36415; 80053; 82550; 83690; 85025; 93005; 99284

== ENCOUNTER 2021-01-21 18:05 | Inpatient (IN) | payer MEDICAID ==
[~2021-01-21] VITALS: Ht 188 cm; Wt 79.5 kg
--- NOTE | 2021-01-21 19:27 | NUR ---
PATIENT IS AWAITING ROOM IN ED. PATIENT EXHIBITS SHAKING OF EXTREMITIES IN WAITING ROOM. THIS DIRECTOR OF DIGITAL TECHNOLOGY EVALUATED PATIENT, HE HAS PURPOSEFUL MOVEMENT. PATIENT HAD SLIPPED DOWN TO THE FLOOR. OTHER ER PATRONS ASSUMED THIS PATIENT WAS SEIZING. THE PATIENT WAS ASSISTED UP TO HIS SEAT. PATIENT REDIRECTED TO CONTROL HIS BREATHING. HE IS MODERATELY COMPLIANT. NO BED IS AVAILABLE IN ED. ER SEROLOGY TEACHER ADVISED OF SITUATION. THE PROVIDER WHO SAW THIS PATIENT RECENTLY IS AWARE.
--- NOTE | 2021-01-21 20:25 | NUR ---
THIS PATIENT ONCE IS ONCE AGAIN LAYING ON THE FLOOR SHAKING. PATIENT IS EXHIBITING CARPOPEDAL SPASM AND HYPERVENTELATING. NO BITE MOROCHO, NO URINE INCONTENCY. PATIENT IS ONCE AGAIN MOVED BACK UP IN HIS CHAIR. THIS HELP DESK ADMINISTRATOR SPOKE WITH THE PATIENT FOR ABOUT FIVE MINUTES. PATIENT WAS COACHED TO SLOW HIS RESPIRATINS. THE PATIENT COMPLIES. HYPERVENTELATION SYNDROME EXPLAINED TO THE PATIENT.
--- NOTE | 2021-01-21 20:40 | NUR ---
THIS OFFSET PRESS ASSISTANT SPOKE WITH ER DRESS OPERATOR. WE ARE ATTEMPTING TO GET A BED IN FAST TRACK FOR THIS PATIENT SOON. THE PATIENT WAS ADVISED. HIS RESP RATE HAS SLOWED. HIS COLOR GOOD, HE IS WARM AND DRY. THIS OFFSET PRESS ASSISTANT ATTEMPTED TO CALM OTHER PAITENTS IN THE ER WITHOUT VIOLATING PATIENTS HIPPA RIGHTS.
[2021-01-21] MEDS ORDERED: temazepam 15mg capsule PO PRN (21:00)
[2021-01-21] MEDS ORDERED: normal saline 1000ML IV soln IVB ONE (21:15)
[2021-01-21] MEDS ORDERED: haloperidol lactate 5mg/ml inj IM ONE (21:30)
[2021-01-21] MEDS ORDERED: potassium Cl 10 mEq/100mL bag IV ONE (21:30)
[2021-01-21] MEDS ORDERED: normal saline 1000ML IV soln IV ONE (21:30)
[2021-01-21] MEDS ORDERED: magnesium 2GM in 50ml NS 50 ML IV ONE ×2 (21:30→21:55)
[2021-01-21] MEDS ORDERED: LORazepam 2 mg/ml vial IV ONE ×2 (21:30→22:10)
[2021-01-21] MEDS ORDERED: potassium Cl 20 mEq SR tablet PO ONE (21:30)
[2021-01-21 22:05] LABS: ALANINE AMINOTRANSFERASE 46 U/L (12-78); ALBUMIN 5.1 G/DL (3.4-5.0); ALBUMIN/GLOBULIN RATIO 1.5 (1.1-1.5); ALKALINE PHOSPHATASE 96 IU/L (20-180); ANION GAP 15 (8-16); ASPARTATE AMINO TRANSFERASE 33 U/L (10-37); BILIRUBIN,TOTAL 1.2 MG/DL (0.1-1.0); BLOOD UREA NITROGEN 15 MG/DL (7-18); BUN/CREATININE RATIO 11.4 (5.4-32.0); CALCIUM 9.7 MG/DL (8.5-10.1); CHLORIDE 90 MMOL/L (99-107); CREATINE KINASE 482 U/L (39-308); CREATININE 1.32 MG/DL (0.60-1.10); GLUCOSE 114 MG/DL (70-104); LIPASE 74 U/L (73-393); SODIUM 134 MMOL/L (135-145); TOTAL CARBON DIOXIDE 29.4 MMOL/L (24-32); TOTAL PROTEIN 8.6 G/DL (6.4-8.2); eGFR 69 ML/MIN
[2021-01-21 22:08] LABS: POTASSIUM 2.3 MMOL/L (3.5-5.1)
[2021-01-21] MEDS ORDERED: pantoprazole 40 MG vial IV ONE (22:30)
[2021-01-21 22:32] LABS: BASOPHILS % (AUTO) 0.2 % (0-1); EOSINOPHILS % (AUTO) 0.2 % (0-6); HEMATOCRIT 46.1 % (42.0-52.0); HEMOGLOBIN 16.1 g/dl (14.0-17.9); LYMPHOCYTES # (AUTO) 1.8 X10'3 (1.1-4.8); LYMPHOCYTES % (AUTO) 15.6 % (21-51); MEAN CORPUSCULAR HGB CONC 35.1 g/dL (33.0-36.5); MEAN CORPUSCULAR VOLUME 85.7 FL (78-98); MEAN PLATELET VOLUME 8.3 FL (7.4-10.4); MONOCYTES # (AUTO) 1.1 X10'3 (0-0.9); MONOCYTES % (AUTO) 9.3 % (2-12); NEUTROPHILS # (AUTO) 8.5 X10'3 (1.8-7.7); NEUTROPHILS % (AUTO) 74.7 % (42-75); PLATELET COUNT 302 X10'3 (140-440); RED BLOOD COUNT 5.38 X10'6 (4.70-6.10); RED CELL DISTRIBUTION WIDTH 12.7 % (11.5-14.5); WHITE BLOOD COUNT 11.4 X10'3 (4.5-11.0)
[2021-01-21 23:22] LABS: MAGNESIUM 2.4 MG/DL (1.5-2.4)
[2021-01-21] MEDS ORDERED: normal saline 1000ml 1,000 ML IV SCH (23:55)
[2021-01-21] MEDS ORDERED: potassium Cl 20 mEq SR tablet PO PRN ×2 (23:55)
[2021-01-21] MEDS ORDERED: HYDROcodone/acetaminophen 5mg/325mg tablet PO PRN (23:55)
[2021-01-21] MEDS ORDERED: HYDROcodone/acetaminophen 10/325mg tab PO PRN (23:55)
[2021-01-21] MEDS ORDERED: metoclopramide 5 mg/ml inj IV PRN (23:55)
[2021-01-21] MEDS ORDERED: magnesium 2GM in 50ml NS 50 ML IV PRN (23:55)
[2021-01-21] MEDS ORDERED: mag hydrox/Alum hydrox/simeth 30ml oral suspension PO PRN (23:55)
[2021-01-21] MEDS ORDERED: acetaminophen 325mg tablet PO PRN ×2 (23:55)
[2021-01-21] MEDS ORDERED: bisacodyl 10mg suppository rectal RC PRN (23:55)
[2021-01-21] MEDS ORDERED: ondansetron/PF 4mg/2ml inj IV PRN (23:55)
[2021-01-21] MEDS ORDERED: magnesium 4gm in 100ml NS 100 ML IV PRN (23:55)
[2021-01-21] MEDS ORDERED: HYDROmorphone inj. 0.5 MG/0.5 ML DISP.SYRIN IV PRN (23:55)
[2021-01-21] MEDS ORDERED: magnesium Cl slow-release 64mg tablet PO PRN (23:55)
[2021-01-21] MEDS ORDERED: magnesium hydroxide 30ml (MOM) UD suspension PO PRN (23:55)
[2021-01-21] MEDS ORDERED: potassium Cl 40MEQ/1/2NS 520ml 520 ML IV PRN (23:55)
[2021-01-22 00:08] LABS: PARTIAL THROMBOPLASTIN TIME 25 SECONDS (22-32)
[2021-01-22 00:18] LABS: H PYLORI ANTIBODY NEGATIVE (Neg)
[2021-01-22] MEDS ORDERED: iohexol 300mg/ml 100ml inj. ONE (00:24)
--- NOTE | 2021-01-22 00:31 | NUR ---
PT TO CT
[2021-01-22 01:30] VITALS: BP 147/85
--- NOTE | 2021-01-22 02:21 | NUR ---
0100 received report from CATHY Wright 0130 Received patient via gurney, shirt, and pants on patient. No other belongings. Patient walked with help from the gurney. Patient eyes are closed and not answering any questions.
[2021-01-22 02:38] LABS: ALANINE AMINOTRANSFERASE 39 U/L (12-78); ALBUMIN/GLOBULIN RATIO 1.3 (1.1-1.5); ALKALINE PHOSPHATASE 84 IU/L (20-180); ANION GAP 8 (8-16); ASPARTATE AMINO TRANSFERASE 30 U/L (10-37); BILIRUBIN,TOTAL 0.9 MG/DL (0.1-1.0); BLOOD UREA NITROGEN 11 MG/DL (7-18); BUN/CREATININE RATIO 8.5 (5.4-32.0); CALCIUM 8.1 MG/DL (8.5-10.1); CHLORIDE 99 MMOL/L (99-107); GLUCOSE 98 MG/DL (70-104); SODIUM 139 MMOL/L (135-145); eGFR 70 ML/MIN
[2021-01-22 02:39] LABS: POTASSIUM 2.6 MMOL/L (3.5-5.1)
[2021-01-22] MEDS: potassium Cl 20mEq in NS 1,000 ML IV SCH ×2 (02:45→08:25)
[2021-01-22] MEDS: potassium Cl 40MEQ/1/2NS 520ml 520 ML IV PRN ×2 (03:03→09:54)
--- NOTE | 2021-01-22 03:09 | NUR ---
Patients belongings were brought up from ER.( Lap top with management department chair and shoes)
[2021-01-22 06:31] LABS: BASOPHILS % (AUTO) 0.3 % (0-1); EOSINOPHILS % (AUTO) 0.4 % (0-6); HEMATOCRIT 38.5 % (42.0-52.0); HEMOGLOBIN 13.7 g/dl (14.0-17.9); LYMPHOCYTES # (AUTO) 1.8 X10'3 (1.1-4.8); LYMPHOCYTES % (AUTO) 20.4 % (21-51); MEAN CORPUSCULAR HEMOGLOBIN 30.2 PG (27.0-31.0); MEAN CORPUSCULAR HGB CONC 35.6 g/dL (33.0-36.5); MEAN CORPUSCULAR VOLUME 84.9 FL (78-98); MEAN PLATELET VOLUME 8.2 FL (7.4-10.4); MONOCYTES # (AUTO) 0.8 X10'3 (0-0.9); MONOCYTES % (AUTO) 8.6 % (2-12); NEUTROPHILS # (AUTO) 6.2 X10'3 (1.8-7.7); NEUTROPHILS % (AUTO) 70.3 % (42-75); PLATELET COUNT 251 X10'3 (140-440); RED BLOOD COUNT 4.54 X10'6 (4.70-6.10); RED CELL DISTRIBUTION WIDTH 12.7 % (11.5-14.5); WHITE BLOOD COUNT 8.8 X10'3 (4.5-11.0)
--- NOTE | 2021-01-22 06:45 | NUR ---
Problems reprioritized. Patient report given, questions answered & plan of care reviewed with CATHY Owens.
--- NOTE | 2021-01-22 07:41 | NUR ---
PAGER ID: [phone] MESSAGE: MARVIN COPE 360B PT HAVING SEVERE TREMORS AND ANXIETY. MAY I PLEASE HAVE 1MG ATIVAN ORDER? THANK YOU. Saloni [phone]
[2021-01-22 08:00] VITALS: BP 132/91
[2021-01-22] MEDS ORDERED: K and/or MAG REPLACEMENT MC SCH (08:00)
[2021-01-22] MEDS ORDERED: nicotine 14mg patch - 24hr TD SCH (08:00)
[2021-01-22] MEDS ORDERED: pantoprazole 40 MG vial IV SCH (08:00)
[2021-01-22] MEDS ORDERED: lurasidone 20mg tablet PO SCH (08:00)
[2021-01-22] MEDS ORDERED: docusate sod 100mg capsule PO SCH (08:00)
[2021-01-22] MEDS ORDERED: LORazepam 0.5 MG tablet PO PRN (09:10)
--- NOTE | 2021-01-22 09:48 | NUR ---
CPVID SWAB COLLECTED AND GIVEN TO X RAY NURSE TO TAKE DOWNSTAIRS.
[2021-01-22 10:54] LABS: MAGNESIUM 2.4 MG/DL (1.5-2.4); PHOSPHORUS 2.9 MG/DL (2.3-4.5)
--- NOTE | 2021-01-22 11:00 | NUR ---
SONAM, instructor and fiance in pt. room. Lab call with positive COVID test. Requested visitors and student to leave room per protocol. Pt. became very angry and started hitting his head on the back of the bed several time and yelling, "Fuc* you!" Pt states he must have gotten COVID from hospital because he was recently tested and it was negative. Fiance aggrevating him but not wanting to leave either. Charge aware. Visitors left room and door was shut after RN dressed in isolation gear and spoke with pt. Pt. was easily defused, but still states he is upset about the situation. notified. See new orders.
--- NOTE | 2021-01-22 11:31 | NUR ---
PAGER ID: [phone] MESSAGE: must page critical - Checo Salas 30 positive COVID test. may transfer to [facility]. Graciela 0515
--- NOTE | 2021-01-22 11:35 | NUR ---
Spoke to Omar on phone states to transfer to ortho but attempt to get stat tox screen and UA. If unable pass on to receiving RN as STAT order.
[2021-01-22] MEDS ORDERED: dexamethasone inj 6 MG in normal saline 50ml IV soln 50 ML IV SCH (11:45)
[2021-01-22 12:42] LABS: CLARITY,URINE CLOUDY (Clear); COLOR,URINE YELLOW (Yellow); UA COLLECTION TYPE CLN CATCH MIDSTREAM
[2021-01-22 12:43] LABS: GLUCOSE, URINE NEGATIVE (Neg); KETONES,URINE 15 mg/dl (Neg); LEUKOCYTE ESTERASE ,URINE NEGATIVE (Neg); NITRITES, URINE NEGATIVE (Neg); OCCULT BLOOD,URINE NEGATIVE (Neg); PROTEIN,URINE NEGATIVE (Neg)
[2021-01-22 12:54] LABS: URINE AMPHETAMINE SCREEN NEGATIVE (Neg); URINE BARBITUATE SCREEN NEGATIVE (Neg); URINE BENZODIAZEPINES SCREEN NEGATIVE (Neg); URINE CANNABINOID SCREEN POSITIVE (Neg); URINE COCAINE SCREEN NEGATIVE (Neg); URINE METHADONE SCREEN NEGATIVE (Neg); URINE OPIATE SCREEN NEGATIVE (Neg); URINE PHENCYCLIDINE SCREEN NEGATIVE (Neg)
--- NOTE | 2021-01-22 13:01 | NUR ---
Gave report to nurse orthoCATHY Bradshaw RN. Pt. being transferred to room 4028
[2021-01-22 13:03] LABS: HIV ANTIBODY 1&2 RAPID NON-REACTIVE (Neg)
[2021-01-22 13:11] LABS: MUCUS STRANDS FEW /LPF (Neg); SQUAMOUS EPITHELIAL CELL,UR FEW /LPF (FEW)
[2021-01-22 13:13] LABS: BACTERIA,URINE FEW /HPF (Neg); RBC,URINE 0-2 /HPF (0-2); WBC,URINE 0-4 /HPF (0-4)
--- NOTE | 2021-01-22 13:24 | NUR ---
Pt. transferred with lunch and chart to [facility]. Leeann MORGAN aware he is there.
--- NOTE | 2021-01-22 13:30 | NUR ---
Approximately 11:00 am Graciela Armstrong RN, was notified pt's rapid Covid swab tested postive. Pt's visitor was asked to leave, the standard hospital room door was closed immediately, and appropriate PPE was employed by staff. Dr Nelson was notified, and transfer orders for 4th floor Covid Unit received. Ns Wire Brush Operator,Karma, was notified, with bed assignment pending. Nabor Douglas, Director, and Milton Lyon RN, Infection Prevention notified of pt status, Covid Unit assignment pending. At approx 1250 bed assignment was received (4572B). Graciela provided report to receiving RN, and transferred pt @ 1455.
--- NOTE | 2021-01-22 14:39 | NUR ---
pt choose to go ama, primary nurse notified hospitalist pt ama w/all belongings and advised to self quaratine
[2021-01-23 15:17] LABS: HBSAG SCREEN Negative (Negative); HEP A AB, IGM Negative (Negative); HEPATITIS C ANTIBODY <0.1 s/co ratio (0.0-0.9)
== END 2021-01-22 15:00 | disposition left against medical advice (07) | DRG 241 ==
LOC: ER 18:06 → ED HOLD 23:55 → EDBEDREQ 01-22 01:10 → SUR 3N 01-22 01:30 → ORTHO 4S 01-22 13:15
PROVIDERS: ADMIT Family Medicine; ATTEND Family Medicine
PROC: BW281ZZ Computerized Tomography (CT Scan) of Head using Low Osmolar Contrast (ICD-10-PCS; principal; 2021-01-22)
DX: K29.70 Gastritis, unspecified, without bleeding (principal); U07.1 COVID-19; N17.9 Acute kidney failure, unspecified; E87.1 Hypo-osmolality and hyponatremia; E87.6 Hypokalemia; F31.9 Bipolar disorder, unspecified; R11.15 Cyclical vomiting syndrome unrelated to migraine; E86.0 Dehydration; F17.210 Nicotine dependence, cigarettes, uncomplicated; F41.1 Generalized anxiety disorder; F12.10 Cannabis abuse, uncomplicated; R11.2 Nausea with vomiting, unspecified; Z53.29 Procedure and treatment not carried out because of patient's decision for other reasons
CPT/HCPCS: 36415; 70470; 80053; 80305; 81001; 82550; 83690; 83735; 84100; 84145; 84443; 85025; 85610; 85730; 86677; 86703; 86705; 86706; 86709; 86803; 87081; 87340; 87635; 93005; 96361; 96365; 96372; 96375; 99285; C9113; G0378; J1630; J2060; J2405; J3480; J7030; Q9967

== ENCOUNTER 2021-01-24 13:27 | Emergency (ER) | payer MEDICAID ==
[~2021-01-24] VITALS: Ht 182.9 cm; Wt 79.5 kg
[2021-01-24 13:34] VITALS: BP 176/100
--- NOTE | 2021-01-24 13:46 | NUR ---
PT LEFT THE RAP AREA INFORMED BY SECURITY. LWOBS
--- NOTE | 2021-01-24 13:50 | NUR ---
PT RETURNS STATING HE WENT ACROSS THE STREET TO THE [facility] TO GET SOMTHING TO DRINK. PT REQUEST TO HAVE HIS GIRLFRIEND CALLED TO PICK HIM UP. CALLED MUNIRA SHE STATE SHE IS ON HER WAY.
== END 2021-01-24 14:04 | disposition left against medical advice (07) ==
LOC: ER 13:28
DX: R11.10 Vomiting, unspecified (principal); Z53.21 Procedure and treatment not carried out due to patient leaving prior to being seen by health care provider

== ENCOUNTER 2021-03-19 10:52 | Emergency (ER) | payer MEDICAID ==
[~2021-03-19] VITALS: Ht 185.4 cm; Wt 80.0 kg
[~2021-03-19 10:52] MED LIST changes: -POTA10TA36 PO; +POTA10TA37 PO
[2021-03-19] MEDS ORDERED: KEP500T PO (11:18)
[2021-03-19] MEDS ORDERED: LORazepam 2 mg/ml vial IM ONE (11:25)
[2021-03-19] MEDS ORDERED: haloperidol lactate 5mg/ml inj IM ONE (11:25)
[2021-03-19 11:29] LABS: BASOPHILS % (AUTO) 0.4 % (0-1); EOSINOPHILS # (AUTO) 0.1 X10'3 (0-0.9); EOSINOPHILS % (AUTO) 0.5 % (0-6); HEMATOCRIT 38.9 % (42.0-52.0); HEMOGLOBIN 13.8 g/dl (14.0-17.9); LYMPHOCYTES # (AUTO) 2.1 X10'3 (1.1-4.8); LYMPHOCYTES % (AUTO) 19.3 % (21-51); MEAN CORPUSCULAR HEMOGLOBIN 30.6 PG (27.0-31.0); MEAN CORPUSCULAR HGB CONC 35.4 g/dL (33.0-36.5); MEAN CORPUSCULAR VOLUME 86.5 FL (78-98); MEAN PLATELET VOLUME 8.3 FL (7.4-10.4); MONOCYTES # (AUTO) 0.7 X10'3 (0-0.9); MONOCYTES % (AUTO) 6.1 % (2-12); NEUTROPHILS % (AUTO) 73.7 % (42-75); PLATELET COUNT 238 X10'3 (140-440); RED CELL DISTRIBUTION WIDTH 12.6 % (11.5-14.5); WHITE BLOOD COUNT 10.9 X10'3 (4.5-11.0)
[2021-03-19 11:44] LABS: ALANINE AMINOTRANSFERASE 35 U/L (12-78); ALBUMIN 4.6 G/DL (3.4-5.0); ALBUMIN/GLOBULIN RATIO 1.4 (1.1-1.5); ALKALINE PHOSPHATASE 81 IU/L (20-180); ANION GAP 17 (8-16); ASPARTATE AMINO TRANSFERASE 23 U/L (10-37); BILIRUBIN,TOTAL 0.6 MG/DL (0.1-1.0); BLOOD UREA NITROGEN 18 MG/DL (7-18); BUN/CREATININE RATIO 15.1 (5.4-32.0); CALCIUM 9.3 MG/DL (8.5-10.1); CHLORIDE 105 MMOL/L (99-107); CREATININE 1.19 MG/DL (0.60-1.10); ETHANOL < 0.010 GM/DL (0.0-0.010); GLUCOSE 122 MG/DL (70-104); POTASSIUM 3.1 MMOL/L (3.5-5.1); SODIUM 145 MMOL/L (135-145); TOTAL CARBON DIOXIDE 22.7 MMOL/L (24-32); eGFR 78 ML/MIN
[2021-03-19] MEDS ORDERED: potassium Cl 20 mEq SR tablet PO STA (11:59)
--- NOTE | 2021-03-19 12:36 | NUR ---
CONFIRMED DC ORDERS W/. MD [place] W PT DISCHARGE. PT WAS GIVEN RX FOR LIUDMILA ON DC.
[2021-03-19 12:38] VITALS: BP 149/84
[2021-03-19] MEDS ORDERED: levetiracetam inj 1,000 MG in normal saline 100ml IV soln 90 ML IV SCH (20:00)
== END 2021-03-19 12:40 | disposition home or self-care (01) ==
LOC: ER 10:52
DX: R11.15 Cyclical vomiting syndrome unrelated to migraine (principal); R56.9 Unspecified convulsions; E86.0 Dehydration; E87.6 Hypokalemia; F31.9 Bipolar disorder, unspecified; F12.90 Cannabis use, unspecified, uncomplicated; F15.90 Other stimulant use, unspecified, uncomplicated; Z72.89 Other problems related to lifestyle; Z98.890 Other specified postprocedural states; Z79.899 Other long term (current) drug therapy
CPT/HCPCS: 36415; 80053; 80320; 82948; 85025; 96372; 96374; 99284; J1630; J1953; J2060

== ENCOUNTER 2021-03-21 13:13 | Emergency (ER) | payer MEDICAID ==
[~2021-03-21 13:13] MED LIST changes: +KEP500T PO
--- NOTE | 2021-03-21 13:40 | NUR ---
PT HAVING SEIZURE LIKE ACTIVITY WHILE DR SALCEDO AND BONITA RAND AT BEDSIDE .PT IS SHAKING .
--- NOTE | 2021-03-21 13:43 | NUR ---
Walked by pt's room to find him actively gaggin himself with his fingers to attempt to vomit.
[2021-03-21] MEDS ORDERED: LORazepam 2 mg/ml vial IV ONE (14:15)
[2021-03-21 14:17] LABS: BASOPHILS # (AUTO) 0.1 X10'3 (0-0.2); BASOPHILS % (AUTO) 0.4 % (0-1); EOSINOPHILS % (AUTO) 0.2 % (0-6); HEMATOCRIT 41.6 % (42.0-52.0); HEMOGLOBIN 14.4 g/dl (14.0-17.9); LYMPHOCYTES # (AUTO) 2.9 X10'3 (1.1-4.8); LYMPHOCYTES % (AUTO) 19.6 % (21-51); MEAN CORPUSCULAR HGB CONC 34.7 g/dL (33.0-36.5); MEAN CORPUSCULAR VOLUME 86.6 FL (78-98); MEAN PLATELET VOLUME 8.2 FL (7.4-10.4); MONOCYTES # (AUTO) 1.2 X10'3 (0-0.9); MONOCYTES % (AUTO) 8.2 % (2-12); NEUTROPHILS # (AUTO) 10.5 X10'3 (1.8-7.7); NEUTROPHILS % (AUTO) 71.6 % (42-75); PLATELET COUNT 280 X10'3 (140-440); RED BLOOD COUNT 4.81 X10'6 (4.70-6.10); RED CELL DISTRIBUTION WIDTH 12.6 % (11.5-14.5); WHITE BLOOD COUNT 14.6 X10'3 (4.5-11.0)
[2021-03-21 14:29] LABS: ALBUMIN 4.9 G/DL (3.4-5.0); ALBUMIN/GLOBULIN RATIO 1.4 (1.1-1.5); ALKALINE PHOSPHATASE 88 IU/L (20-180); ANION GAP 25 (8-16); ASPARTATE AMINO TRANSFERASE 32 U/L (10-37); BILIRUBIN,TOTAL 0.5 MG/DL (0.1-1.0); BLOOD UREA NITROGEN 17 MG/DL (7-18); BUN/CREATININE RATIO 9.7 (5.4-32.0); CALCIUM 9.5 MG/DL (8.5-10.1); CHLORIDE 95 MMOL/L (99-107); CREATININE 1.75 MG/DL (0.60-1.10); GLUCOSE 117 MG/DL (70-104); SODIUM 140 MMOL/L (135-145); TOTAL CARBON DIOXIDE 19.7 MMOL/L (24-32); TOTAL PROTEIN 8.5 G/DL (6.4-8.2); eGFR 50 ML/MIN
[2021-03-21 14:35] LABS: POTASSIUM 2.7 MMOL/L (3.5-5.1)
[2021-03-21] MEDS ORDERED: potassium Cl 20 mEq SR tablet PO STA (14:38)
[2021-03-21] MEDS ORDERED: POTA-207 PO (14:39)
[2021-03-21] MEDS ORDERED: PROC25SU31 RC (14:39)
[2021-03-21] MEDS ORDERED: magnesium oxide 400mg tablet PO ONE (14:40)
[2021-03-21 14:41] LABS: ALANINE AMINOTRANSFERASE 26 U/L (12-78)
[2021-03-21 14:53] LABS: CLARITY,URINE CLEAR (Clear); COLOR,URINE YELLOW (Yellow); GLUCOSE, URINE NEGATIVE (Neg); KETONES,URINE 15 mg/dl (Neg); PH,URINE 6.5 (4.8-8.0); PROTEIN,URINE TRACE mg/dl (Neg); UA COLLECTION TYPE VOIDED
[2021-03-21 14:54] LABS: LEUKOCYTE ESTERASE ,URINE NEGATIVE (Neg); NITRITES, URINE NEGATIVE (Neg); OCCULT BLOOD,URINE NEGATIVE (Neg); UROBILINOGEN,URINE 0.2 E.U/dL (0.2-1.0)
--- NOTE | 2021-03-21 14:55 | NUR ---
KEYONA MESA AND DR JACKSON IS D/C THE PATIENT ,AWARE OF PATIENT K+ LEVEL ,ABD PAIN N/V FORCING HIMSELF TO VOMIT .A SPER KEYONA MESA PT IS OKAY TO BE D/C AND PATIENT IS ALSO READY TO GO HOME AND DOES NOT WANT TO WAIT.
[2021-03-21 15:00] LABS: BACTERIA,URINE NONE SEEN /HPF (Neg); MUCUS STRANDS NONE SEEN /LPF (Neg); RBC,URINE 0-2 /HPF (0-2); SPERM FEW /HPF (NEGATIVE); SQUAMOUS EPITHELIAL CELL,UR FEW /LPF (FEW); WBC,URINE 0-4 /HPF (0-4)
[2021-03-21 15:07] LABS: URINE AMPHETAMINE SCREEN NEGATIVE (Neg); URINE BARBITUATE SCREEN NEGATIVE (Neg); URINE BENZODIAZEPINES SCREEN NEGATIVE (Neg); URINE CANNABINOID SCREEN POSITIVE (Neg); URINE COCAINE SCREEN NEGATIVE (Neg); URINE METHADONE SCREEN NEGATIVE (Neg); URINE OPIATE SCREEN NEGATIVE (Neg); URINE PHENCYCLIDINE SCREEN NEGATIVE (Neg)
[2021-03-21 15:16] VITALS: BP 119/85
== END 2021-03-21 15:19 | disposition home or self-care (01) ==
LOC: ER 13:13
DX: F12.188 Cannabis abuse with other cannabis-induced disorder (principal); R11.15 Cyclical vomiting syndrome unrelated to migraine; R56.9 Unspecified convulsions; R10.84 Generalized abdominal pain; F31.9 Bipolar disorder, unspecified; F15.90 Other stimulant use, unspecified, uncomplicated; Z86.69 Personal history of other diseases of the nervous system and sense organs; Z98.890 Other specified postprocedural states; Z72.89 Other problems related to lifestyle; Z88.8 Allergy status to other drugs, medicaments and biological substances; Z79.899 Other long term (current) drug therapy
CPT/HCPCS: 36415; 80053; 80305; 81001; 85025; 93005; 96374; 99284; J2060

== ENCOUNTER 2021-03-23 00:36 | Inpatient (IN) | payer MEDICAID ==
[~2021-03-23] VITALS: Ht 190.5 cm; Wt 72.7 kg
[~2021-03-23 00:36] MED LIST changes: +POTA-207 PO; +PROC25SU31 RC
[2021-03-23] MEDS ORDERED: LORazepam 2 mg/ml vial IM ONE (00:50)
[2021-03-23] MEDS ORDERED: FOSphenytoin 500mg inj. 1,000 MG in normal saline 100ml IV soln 80 ML IV ONE (00:50)
[2021-03-23] MEDS ORDERED: LORazepam 2 mg/ml vial IV ONE ×2 (00:55→12:49)
[2021-03-23] MEDS ORDERED: normal saline 1000ml 1,000 ML IV ONE (01:30)
[2021-03-23] MEDS: LevETIRAcetam 1,000MG in NORMAL SALINE 100ml IV.SOLN IV SCH ×2 (01:51→02:17)
[2021-03-23 01:53] LABS: ALBUMIN 4.5 G/DL (3.4-5.0); ANION GAP 16 (8-16); BLOOD UREA NITROGEN 27 MG/DL (7-18); CHLORIDE 92 MMOL/L (99-107); CREATININE 1.59 MG/DL (0.60-1.10); GLUCOSE 124 MG/DL (70-104); SODIUM 135 MMOL/L (135-145); TOTAL CARBON DIOXIDE 27.3 MMOL/L (24-32); eGFR 56 ML/MIN
[2021-03-23 01:58] LABS: POTASSIUM 2.5 MMOL/L (3.5-5.1)
[2021-03-23 01:59] LABS: BASOPHILS % (AUTO) 0.2 % (0-1); MONOCYTES # (AUTO) 1.2 X10'3 (0-0.9)
[2021-03-23] MEDS: potassium Cl 10 mEq/100mL bag IV ONE ×2 (02:31→07:00)
[2021-03-23 02:44] LABS: EOSINOPHILS % (AUTO) 0 % (0-6); HEMOGLOBIN 14.2 g/dl (14.0-17.9); LYMPHOCYTES # (AUTO) 1.3 X10'3 (1.1-4.8); LYMPHOCYTES % (AUTO) 7.6 % (21-51); MEAN CORPUSCULAR HEMOGLOBIN 30.5 PG (27.0-31.0); MEAN CORPUSCULAR HGB CONC 36.3 g/dL (33.0-36.5); MEAN CORPUSCULAR VOLUME 84.2 FL (78-98); MEAN PLATELET VOLUME 8.7 FL (7.4-10.4); MONOCYTES % (AUTO) 7.2 % (2-12); NEUTROPHILS # (AUTO) 14.3 X10'3 (1.8-7.7); PLATELET COUNT 226 X10'3 (140-440); RED BLOOD COUNT 4.64 X10'6 (4.70-6.10); RED CELL DISTRIBUTION WIDTH 12.5 % (11.5-14.5); WHITE BLOOD COUNT 16.8 X10'3 (4.5-11.0)
[2021-03-23] MEDS ORDERED: diphenhydrAMINE 50 mg/ml inj IV ONE (03:20)
[2021-03-23 03:26] LABS: PLATELET ESTIMATE NORMAL
[2021-03-23 03:29] LABS: SPHEROCYTES 1+
[2021-03-23] MEDS ORDERED: potassium Cl 40MEQ/1/2NS 520ml 520 ML IV PRN ×2 (04:35)
[2021-03-23] MEDS ORDERED: mag hydrox/Alum hydrox/simeth 30ml oral suspension PO PRN (04:35)
[2021-03-23] MEDS ORDERED: magnesium hydroxide 30ml (MOM) UD suspension PO PRN (04:35)
[2021-03-23] MEDS ORDERED: acetaminophen 325mg tablet PO PRN (04:35)
[2021-03-23] MEDS ORDERED: potassium Cl 20 mEq SR tablet PO PRN ×4 (04:35→13:55)
[2021-03-23 05:10] LABS: POTASSIUM 3.5 MMOL/L (3.5-5.1)
[2021-03-23] MEDS: potassium Cl 20mEq in NS 1,000 ML IV SCH ×2 (05:21→14:37)
--- NOTE | 2021-03-23 05:30 | NUR ---
Patient in room PCU 3025. I have received report from MASHA MORGAN and had the opportunity to ask questions and assume patient care.
[2021-03-23] MEDS ORDERED: magnesium 2GM in 50ml NS 50 ML IV ONE (05:35)
[2021-03-23 05:51] LABS: MAGNESIUM 2.4 MG/DL (1.5-2.4)
[2021-03-23 06:00] VITALS: BP 114/70
--- NOTE | 2021-03-23 06:00 | NUR ---
Patient in room PCU 3025. I have received report from CATHY gloria and had the opportunity to ask questions and assume patient care.
--- NOTE | 2021-03-23 06:27 | NUR ---
Problems reprioritized. Patient report given, questions answered & plan of care reviewed with PJ MORGAN.
[2021-03-23 06:29] VITALS: BP 107/78
[2021-03-23] MEDS: docusate sod 100mg capsule PO SCH ×2 (07:31→19:37)
[2021-03-23] MEDS ORDERED: levetiracetam 250mg tablet PO SCH ×3 (08:00→20:00)
[2021-03-23] MEDS ORDERED: K and/or MAG REPLACEMENT MC SCH ×2 (08:00→20:00)
[2021-03-23] MEDS ORDERED: POTA-82 PO (08:35)
[2021-03-23] MEDS ORDERED: LEVE750T PO (08:35)
[2021-03-23] MEDS ORDERED: potassium Cl 20 mEq SR tablet PO SCH (09:32)
[2021-03-23] MEDS: ondansetron/PF 4mg/2ml inj IV PRN ×2 (09:41→17:09)
[2021-03-23] MEDS ORDERED: levetiracetam 250mg tablet PO STA (09:51)
--- NOTE | 2021-03-23 10:28 | NUR ---
PAGER ID: [phone] MESSAGE: Trung [id number] keeps vomiting. Zofran not working. Want Keppra iV? order something else vomiting please (104 character message out of a maximum of 240)
--- NOTE | 2021-03-23 11:36 | NUR ---
PAGER ID: [phone] MESSAGE: Can you please change jorgensons Keppra to IV for a dose. Still vomiting unable to take po (90 character message out of a maximum of 240)
--- NOTE | 2021-03-23 12:40 | NUR ---
Pt came back from ambulating to Bathroom after projectile vomiting in toilet. Significant other yelled from room "pt is seizing." Dr Perez aware pt was unable to take po keppra due to vomiting. Paged Ana asking for IV Keppra and did not return page around noon. Attempted to get ahold of Dr Perez through 3 different pages. No call or orders recieved. Rapid response called at 1230. No PRN meds ordered. Seizure lasted about 15 seconds and was a tonic clonic seizure. Icu to bedside. Dr Perez paged overhead. Pt arousable after 15 seconds of seizure activity. Pt oriented but drowsy.
[2021-03-23 12:44] VITALS: BP 153/97
--- NOTE | 2021-03-23 12:55 | NUR ---
PAGER ID: [phone] MESSAGE: we have a pt seizing with no meds and cant get ahold of Rusu. Please call stat CATHY Jj [phone] [facility]
--- NOTE | 2021-03-23 13:00 | NUR ---
PAGER ID: [phone] MESSAGE: NOHEMI [email or web address], RAPID ON [id number], NO RESPONSE FROM , CAN ANYONE ASSIST. NEED MEDS. THANK YOU
[2021-03-23] MEDS ORDERED: levetiracetam inj 1,500 MG in normal saline 100ml IV soln 85 ML IV STA (13:04)
[2021-03-23 13:23] LABS: ALANINE AMINOTRANSFERASE 31 U/L (12-78); ALBUMIN 4.3 G/DL (3.4-5.0); ALBUMIN/GLOBULIN RATIO 1.3 (1.1-1.5); ALKALINE PHOSPHATASE 82 IU/L (20-180); ANION GAP 12 (8-16); ASPARTATE AMINO TRANSFERASE 32 U/L (10-37); BILIRUBIN,TOTAL 0.7 MG/DL (0.1-1.0); BLOOD UREA NITROGEN 21 MG/DL (7-18); BUN/CREATININE RATIO 17.8 (5.4-32.0); CALCIUM 8.6 MG/DL (8.5-10.1); CHLORIDE 95 MMOL/L (99-107); CREATININE 1.18 MG/DL (0.60-1.10); GLUCOSE 115 MG/DL (70-104); SODIUM 134 MMOL/L (135-145); TOTAL CARBON DIOXIDE 26.7 MMOL/L (24-32); TOTAL PROTEIN 7.5 G/DL (6.4-8.2); eGFR 79 ML/MIN
[2021-03-23 13:25] LABS: POTASSIUM 2.6 MMOL/L (3.5-5.1)
--- NOTE | 2021-03-23 13:41 | NUR ---
Malnutrition consult: Pt admitted w/ seizures and hypokalemia per EMR. Pt noted w/ cyclic vomiting for 1 year and hyperemesis possibly R/T marijuana usage. Current scaled wt (72.7kg) shows 15lb wt loss from scaled wt from 01/20 (79.5kg) which represents 8% wt loss in 2 months. No edema noted. Per notation, pt continues to vomit today and rapid response called today. Unable to assess for signs of muscle/fat waisting or PO hx. Due to change in pt condition, unable to fully assess for malnutrition, will continue to monitor for further criteria. Recs: 1. Advance to Regular diet as tolerated 2. Bowel care per rx 3. Weekly scaled wts 4. Assess for further malnutrition criteria when stable Addendum: 03/23/21 at [address] Amended: Links added.
[2021-03-23] MEDS ORDERED: magnesium Cl slow-release 64mg tablet PO PRN (13:55)
[2021-03-23] MEDS ORDERED: magnesium 4gm in 100ml NS 100 ML IV PRN (13:55)
--- NOTE | 2021-03-23 13:58 | NUR ---
PAGER ID: [phone] MESSAGE: [id number] Trung needs psych consult. Drinking water to make himself vomit continuously
[2021-03-23] MEDS: metoclopramide 5 mg/ml inj IV PRN ×2 (14:01→21:14)
[2021-03-23] MEDS: LORazepam 2 mg/ml vial IV PRN ×3 (14:26→21:14)
[2021-03-23] MEDS: potassium Cl 40MEQ/1/2NS 520ml 520 ML IV PRN (14:36)
[2021-03-23 15:00] VITALS: BP 138/68
--- NOTE | 2021-03-23 17:05 | NUR ---
Pt was getting agitated after he was told it as unsafe for him to shower. Pt finally calmed down and laid back in bed. As soon as I left room girlfriend started yelling "hes seizing" Pt having full body seizure lasting approx 10 sec. Ativan given. Pt sleepy right after seizure but awake and oreinted conversing
[2021-03-23 18:00] VITALS: BP 149/88
--- NOTE | 2021-03-23 18:29 | NUR ---
Problems reprioritized. Patient report given, questions answered & plan of care reviewed with CATHY PETERSON.
[2021-03-23] MEDS: levetiracetam inj 1,500 MG in normal saline 100ml IV soln 85 ML IV SCH (19:27)
[2021-03-23 20:21] LABS: MAGNESIUM 2.3 MG/DL (1.5-2.4); POTASSIUM 3.2 MMOL/L (3.5-5.1)
[2021-03-23 22:00] VITALS: BP 111/58
[2021-03-24] MEDS: potassium Cl 20mEq in NS 1,000 ML IV SCH (01:02)
[2021-03-24] MEDS: LORazepam 2 mg/ml vial IV PRN ×2 (01:37→04:15)
[2021-03-24 02:00] VITALS: BP 120/59
[2021-03-24] MEDS: metoclopramide 5 mg/ml inj IV PRN (04:15)
[2021-03-24 06:00] VITALS: BP 105/55
--- NOTE | 2021-03-24 06:32 | NUR ---
Patient in room PCU 3025. I have received report from Donato MORGAN and had the opportunity to ask questions and assume patient care. Patient resting in bed in no acute distress.
[2021-03-24 06:36] LABS: ALANINE AMINOTRANSFERASE 27 U/L (12-78); ALBUMIN 3.6 G/DL (3.4-5.0); ALBUMIN/GLOBULIN RATIO 1.2 (1.1-1.5); ALKALINE PHOSPHATASE 67 IU/L (20-180); ANION GAP 8 (8-16); ASPARTATE AMINO TRANSFERASE 24 U/L (10-37); BILIRUBIN,TOTAL 0.6 MG/DL (0.1-1.0); BLOOD UREA NITROGEN 13 MG/DL (7-18); BUN/CREATININE RATIO 11.8 (5.4-32.0); CALCIUM 8.2 MG/DL (8.5-10.1); CHLORIDE 101 MMOL/L (99-107); GLUCOSE 89 MG/DL (70-104); SODIUM 139 MMOL/L (135-145); TOTAL CARBON DIOXIDE 29.6 MMOL/L (24-32); TOTAL PROTEIN 6.5 G/DL (6.4-8.2); eGFR 85 ML/MIN
[2021-03-24 06:44] LABS: RED CELL DISTRIBUTION WIDTH 12.4 % (11.5-14.5)
[2021-03-24 06:46] LABS: POTASSIUM 2.7 MMOL/L (3.5-5.1)
[2021-03-24 06:47] LABS: BASOPHILS # (AUTO) 0.1 X10'3 (0-0.2); BASOPHILS % (AUTO) 0.7 % (0-1); EOSINOPHILS # (AUTO) 0.1 X10'3 (0-0.9); EOSINOPHILS % (AUTO) 1.4 % (0-6); HEMATOCRIT 34.9 % (42.0-52.0); HEMOGLOBIN 12.6 g/dl (14.0-17.9); LYMPHOCYTES # (AUTO) 2.5 X10'3 (1.1-4.8); LYMPHOCYTES % (AUTO) 35.7 % (21-51); MEAN PLATELET VOLUME 8.4 FL (7.4-10.4); MONOCYTES # (AUTO) 0.8 X10'3 (0-0.9); MONOCYTES % (AUTO) 11.8 % (2-12); NEUTROPHILS # (AUTO) 3.6 X10'3 (1.8-7.7); NEUTROPHILS % (AUTO) 50.4 % (42-75); PLATELET COUNT 191 X10'3 (140-440); RED BLOOD COUNT 4.05 X10'6 (4.70-6.10)
--- NOTE | 2021-03-24 06:52 | NUR ---
PAGER ID: [phone] MESSAGE: Patient Checo Salas room 3025A has a critical potassium level of 2.7. He is on NS with 20mEq of potassium IV running @100mL/hr. He can not tolerate anything PO. Please advise. Thank you Audra MORGAN ext [phone]
[2021-03-24] MEDS: potassium Cl 40MEQ/1/2NS 520ml 520 ML IV PRN (07:36)
[2021-03-24] MEDS: levetiracetam inj 1,500 MG in normal saline 100ml IV soln 85 ML IV SCH (07:36)
[2021-03-24] MEDS: docusate sod 100mg capsule PO SCH (07:36)
--- NOTE | 2021-03-24 08:45 | NUR ---
Page Sent to Miki vazquez AMA promotional table spacer PAGER ID: [phone] MESSAGE: [id number] Josue. Patient wants to leave AMA. Mireya/Audra 0526
--- NOTE | 2021-03-24 10:35 | NUR ---
Patient left AMA @ 0873. He was educated on the dangerous consequences of leaving and the very real possibility of readmission r/t seizures and low K. He was advised to see his PCP YORDY for f/u and med management. Patient was educated about warning s/s and verbalized understanding. He then signed AMA form and left.
--- NOTE | 2021-03-24 10:43 | NUR ---
Student documentation: I have reviewed and agree with all interventions, assessments performed and documented by Audra MORGAN. Student Medication Administration: For this medication-pass time frame, all medication were reviewed, dispensed, administered and documented per hospital policy by Audra MORGAN.
== END 2021-03-24 08:55 | disposition left against medical advice (07) | DRG 53 ==
LOC: ER 00:36 → ED HOLD 04:38 → PCU 3S 05:59
PROVIDERS: ADMIT Internal Medicine; ATTEND Internal Medicine
PROC: 4A10X4Z Monitoring of Central Nervous Electrical Activity, External Approach (ICD-10-PCS; principal; 2021-03-23)
DX: G40.909 Epilepsy, unspecified, not intractable, without status epilepticus (principal); E87.6 Hypokalemia; F12.90 Cannabis use, unspecified, uncomplicated; F31.9 Bipolar disorder, unspecified; Z53.29 Procedure and treatment not carried out because of patient's decision for other reasons; Z91.048 Other nonmedicinal substance allergy status; Z79.899 Other long term (current) drug therapy
CPT/HCPCS: 36415; 70450; 80048; 80053; 80177; 83735; 84132; 85008; 85025; 87081; 93005; 95816; 96365; 96375; 99291; G0378; J1200; J1953; J2060; J2405; J2765; J3480; J7030

== ENCOUNTER 2021-03-25 15:51 | Emergency (ER) | payer MEDICAID ==
[~2021-03-25 15:51] MED LIST changes: -KEP500T PO; +LEVE750T PO; -LURA20TA PO; -ONDA4TAB6 PO; -POTA-207 PO; +POTA-82 PO; -POTA10TA37 PO; -PROC-8 PO; -PROC25SU31 RC
== END 2021-03-25 16:18 | disposition left against medical advice (07) ==
LOC: ER 15:52
DX: R56.9 Unspecified convulsions (principal); Z53.21 Procedure and treatment not carried out due to patient leaving prior to being seen by health care provider

== ENCOUNTER 2021-03-26 22:05 | Inpatient (IN) | payer MEDICAID ==
[~2021-03-26] VITALS: Ht 182.9 cm; Wt 80.3 kg
[~2021-03-26 22:05] MED LIST changes: +KEP500T PO; +LURA20TA PO; +ONDA4TAB6 PO; +POTA-207 PO; +POTA10TA37 PO; +PROC-8 PO; +PROC25SU31 RC
[2021-03-26] MEDS: potassium Cl 10 mEq/100mL bag IV SCH ×2 (22:20→23:20)
[2021-03-26] MEDS ORDERED: magnesium 2GM in 50ml NS 50 ML IV ONE (22:20)
[2021-03-26] MEDS ORDERED: normal saline 1000ML IV soln IVB ONE (22:20)
[2021-03-26] MEDS ORDERED: levetiracetam inj 1,000 MG in normal saline 100ml IV soln 90 ML IV ONE (22:23)
[2021-03-26] MEDS ORDERED: LORazepam 2 mg/ml vial IV ONE (22:25)
[2021-03-26 22:30] VITALS: BP 164/95
[2021-03-26] MEDS ORDERED: fentaNYL/PF 50MCG/1 ML 2ML syringe IV ONE (22:30)
[2021-03-26] MEDS ORDERED: etomidate 2mg/ml inj. IV ONE (22:30)
[2021-03-26] MEDS ORDERED: MIDAZolam 5mg/ml 2ml vial IV ONE (22:30)
[2021-03-26] MEDS ORDERED: rocuronium 10mg/ml inj IV ONE (22:30)
[2021-03-26 22:53] LABS: BASOPHILS % (AUTO) 0.3 % (0-1); EOSINOPHILS % (AUTO) 0.3 % (0-6); HEMATOCRIT 41.2 % (42.0-52.0); HEMOGLOBIN 14.2 g/dl (14.0-17.9); LYMPHOCYTES # (AUTO) 3.5 X10'3 (1.1-4.8); MEAN CORPUSCULAR HEMOGLOBIN 30.1 PG (27.0-31.0); MEAN CORPUSCULAR HGB CONC 34.5 g/dL (33.0-36.5); MEAN CORPUSCULAR VOLUME 87.2 FL (78-98); MEAN PLATELET VOLUME 8.3 FL (7.4-10.4); MONOCYTES # (AUTO) 1.3 X10'3 (0-0.9); MONOCYTES % (AUTO) 10.5 % (2-12); NEUTROPHILS # (AUTO) 7.6 X10'3 (1.8-7.7); NEUTROPHILS % (AUTO) 60.9 % (42-75); PLATELET COUNT 289 X10'3 (140-440); RED BLOOD COUNT 4.72 X10'6 (4.70-6.10); RED CELL DISTRIBUTION WIDTH 12.9 % (11.5-14.5); WHITE BLOOD COUNT 12.5 X10'3 (4.5-11.0)
[2021-03-26 23:30] VITALS: BP 133/67
[2021-03-26 23:40] LABS: ALBUMIN 4.8 G/DL (3.4-5.0); ALBUMIN/GLOBULIN RATIO 1.5 (1.1-1.5); ALKALINE PHOSPHATASE 85 IU/L (20-180); ANION GAP 26 (8-16); ASPARTATE AMINO TRANSFERASE 32 U/L (10-37); BILIRUBIN,TOTAL 0.6 MG/DL (0.1-1.0); BLOOD UREA NITROGEN 16 MG/DL (7-18); BUN/CREATININE RATIO 8.5 (5.4-32.0); CALCIUM 9.3 MG/DL (8.5-10.1); CHLORIDE 94 MMOL/L (99-107); CKMB RELATIVE INDEX 0.2 RATIO (0-2.5); CREATINE KINASE 676 U/L (39-308); CREATININE 1.88 MG/DL (0.60-1.10); ETHANOL < 0.010 GM/DL (0.0-0.010); GLUCOSE 130 MG/DL (70-104); SODIUM 137 MMOL/L (135-145); TOTAL CARBON DIOXIDE 16.7 MMOL/L (24-32); TOTAL PROTEIN 8.1 G/DL (6.4-8.2); eGFR 46 ML/MIN
[2021-03-27] VITALS (15 sets, daily range): BP systolic 102–140; BP diastolic 60–89
[2021-03-27 00:02] LABS: POTASSIUM 2.3 MMOL/L (3.5-5.1)
[2021-03-27 00:09] LABS: ALANINE AMINOTRANSFERASE 34 U/L (12-78)
[2021-03-27] MEDS: potassium Cl 10 mEq/100mL bag IV SCH ×2 (00:20→01:20)
[2021-03-27] MEDS ORDERED: mag hydrox/Alum hydrox/simeth 30ml oral suspension PO PRN (03:05)
[2021-03-27] MEDS ORDERED: magnesium Cl slow-release 64mg tablet PO PRN (03:05)
[2021-03-27] MEDS ORDERED: HYDROcodone/acetaminophen 5mg/325mg tablet PO PRN (03:05)
[2021-03-27] MEDS ORDERED: magnesium 2GM in 50ml NS 50 ML IV PRN (03:05)
[2021-03-27] MEDS ORDERED: potassium CL 10mEq/100ml bag 100 ML IV PRN (03:05)
[2021-03-27] MEDS ORDERED: morphine 2 MG/ML inj. syringe IV PRN (03:05)
[2021-03-27] MEDS ORDERED: magnesium hydroxide 30ml (MOM) UD suspension PO PRN (03:05)
[2021-03-27] MEDS ORDERED: acetaminophen 325mg tablet PO PRN ×2 (03:05)
[2021-03-27] MEDS ORDERED: potassium Cl 20 mEq SR tablet PO PRN (03:05)
[2021-03-27] MEDS ORDERED: ondansetron/PF 4mg/2ml inj IV PRN (03:05)
[2021-03-27] MEDS ORDERED: magnesium 4gm in 100ml NS 100 ML IV PRN (03:05)
[2021-03-27] MEDS ORDERED: LORazepam 1 MG tablet PO PRN (03:10)
[2021-03-27] MEDS ORDERED: LORazepam 2 mg/ml vial IV PRN (03:10)
--- NOTE | 2021-03-27 06:26 | NUR ---
Problems reprioritized. Patient report given, questions answered & plan of care reviewed with CATHY Levine.
--- NOTE | 2021-03-27 06:33 | NUR ---
Patient in room PCU 3015. I have received report from CATHY Hernandez and had the opportunity to ask questions and assume patient care.
[2021-03-27] MEDS: heparin, porcine 5000 units/ml vial SQ SCH ×2 (07:12→16:23)
[2021-03-27] MEDS: pantoprazole 40mg Tablet.DR PO SCH (07:12)
[2021-03-27] MEDS: nicotine 14mg patch - 24hr TD SCH ×2 (07:13→18:52)
[2021-03-27] MEDS: normal saline 1000ml 1,000 ML IV SCH ×2 (07:19→13:28)
[2021-03-27] MEDS ORDERED: levetiracetam 250mg tablet PO SCH ×2 (08:00→20:00)
[2021-03-27] MEDS: K and/or MAG REPLACEMENT MC SCH ×2 (08:00→20:00)
[2021-03-27 08:12] LABS: MAGNESIUM 2.7 MG/DL (1.5-2.4)
[2021-03-27 08:19] LABS: POTASSIUM 2.9 MMOL/L (3.5-5.1)
[2021-03-27] MEDS: potassium Cl 20 mEq SR tablet PO PRN ×3 (08:32→16:23)
--- NOTE | 2021-03-27 08:36 | NUR ---
PAGER ID: [phone] MESSAGE: [id number]- Checo Salas- Trevin K 2.9. replacing per protocol. also passed nurses bed side swallow eval will start reg diet. thank you.- Abner 0827
--- NOTE | 2021-03-27 09:03 | NUR ---
Order for EEG ordered. EEG paged through paging system.
[2021-03-27] MEDS ORDERED: LORazepam 2 mg/ml vial ONE (09:30)
[2021-03-27] MEDS ORDERED: levetiracetam inj 1,000 MG in normal saline 100ml IV soln 90 ML IV STA (09:31)
[2021-03-27] MEDS ORDERED: phenobarbital inj 260 MG in normal saline 100ml IV soln 98 ML IV STA (09:34)
[2021-03-27 09:48] LABS: BASOPHILS % (AUTO) 0.4 % (0-1); EOSINOPHILS # (AUTO) 0.1 X10'3 (0-0.9); HEMATOCRIT 41.8 % (42.0-52.0); HEMOGLOBIN 14.6 g/dl (14.0-17.9); LYMPHOCYTES # (AUTO) 2.4 X10'3 (1.1-4.8); LYMPHOCYTES % (AUTO) 31.3 % (21-51); MEAN CORPUSCULAR HEMOGLOBIN 30.4 PG (27.0-31.0); MEAN CORPUSCULAR VOLUME 86.9 FL (78-98); MEAN PLATELET VOLUME 8.2 FL (7.4-10.4); MONOCYTES # (AUTO) 0.7 X10'3 (0-0.9); NEUTROPHILS # (AUTO) 4.4 X10'3 (1.8-7.7); NEUTROPHILS % (AUTO) 58.3 % (42-75); PLATELET COUNT 275 X10'3 (140-440); RED BLOOD COUNT 4.81 X10'6 (4.70-6.10); RED CELL DISTRIBUTION WIDTH 12.9 % (11.5-14.5); WHITE BLOOD COUNT 7.6 X10'3 (4.5-11.0)
[2021-03-27] MEDS ORDERED: LORazepam 2 mg/ml vial IV ONE ×2 (09:55→10:00)
[2021-03-27 10:02] LABS: ALANINE AMINOTRANSFERASE 39 U/L (12-78); ALBUMIN 4.5 G/DL (3.4-5.0); ALBUMIN/GLOBULIN RATIO 1.3 (1.1-1.5); ALKALINE PHOSPHATASE 83 IU/L (20-180); ANION GAP 12 (8-16); ASPARTATE AMINO TRANSFERASE 30 U/L (10-37); BILIRUBIN,TOTAL 0.4 MG/DL (0.1-1.0); BLOOD UREA NITROGEN 13 MG/DL (7-18); BUN/CREATININE RATIO 10.8 (5.4-32.0); CHLORIDE 101 MMOL/L (99-107); GLUCOSE 90 MG/DL (70-104); SODIUM 143 MMOL/L (135-145); TOTAL CARBON DIOXIDE 29.9 MMOL/L (24-32); eGFR 77 ML/MIN
--- NOTE | 2021-03-27 10:20 | NUR ---
Patient transferred to room 4022. Receiving RN at bedside to receive report and assume care.
--- NOTE | 2021-03-27 10:39 | NUR ---
At approx 0930 relief numerical control nesting operatorCATHY Dolan reported patient having n/v and giving patient zofran. Went to check on patient, relief numerical control nesting operatorCATHY Dolan and maria ines Ybarra at patients bedside. Patient had emesis bag full of liquid. Patient stated he was feeling "numb" which he reported earlier that he has an aura of numbness when he is about to have his seizures. [facility] this RN Went to get Ativan for seizures as ordered. Patient began to have seizures witnessed by Dr Arias who was outside of patient's room (went into room when patient began to seize), Terry. Dr. Arias ordered for Ativan 4mg to be given. Patient was turned to left side lying position, seizure precautions in place. Ativan given to patient and effective. However patient again had seizures. Per Dr. Arias patient had 3 "back to back seizures within 10 mins lasting approx 1.5mins." Vitals 115/55 hr 95 93% on RA. Rapid ws called for patient. ICU MD, ADMINISTRATIVE COURT JUSTICE Adenike and was at patient's bedside and ICU MD was able to speak to patient. Patient again had seizures and ICU MD ordered another 4mg ativan IV and for patient to be transferred to ICU. While being transferred to ICU accompanied by ICU MD, RT Adenike and this RN patient began having another seizure. 4mg ativan again ordered for patient by ICU MD but only 2mg given per ICU MD to reserve the remaining 2mg ativan if patient begins to have another seizure episode during remaining transfer. A total of 10mg of Ativan IV was given to patient. Addendum: 03/27/21 at 1119 by Abner Rankin RN Remainder of the 2mg Ativan was wasted. Pharmacist Daniela Yap and [facility] charge addressed discrepencies on Omni. Addendum: 03/27/21 at 1122 by Abner Rankin RN SONIA WILLOUGHBY name is Dr. Pal.
[2021-03-27] MEDS ORDERED: metoclopramide 5 mg/ml inj IV PRN (17:50)
[2021-03-27] MEDS ORDERED: MIDAZolam 5mg/ml 2ml vial IV ONE (17:50)
--- NOTE | 2021-03-27 18:20 | NUR ---
patient in room 4042. I have received report from CATHY Ellington and had the opportunity to ask questions.
[2021-03-27] MEDS ORDERED: LORazepam 2 mg/ml vial IM ONE (18:30)
[2021-03-27] MEDS ORDERED: dexmedetomidine/D5W 100mL 100 ML IV SCH (19:40)
[2021-03-27] MEDS ORDERED: quetiapine 100mg tablet PO ONE (19:40)
[2021-03-27] MEDS ORDERED: levetiracetam inj 750 MG in normal saline 100ml IV soln 92.5 ML IV SCH (20:00)
--- NOTE | 2021-03-27 20:26 | NUR ---
[id number] pt is agitated, kicking and hitting the bed rail, security at bedside, pt stats he wants to leave but can not express the risks of leaving the hospital against medical advice including but not limited to repeat seizures and even possibly . Safety measures in place. Spoke to néstor WILLOUGHBY new orders received
[2021-03-27] MEDS: levetiracetam inj 1,000 MG in normal saline 100ml IV soln 90 ML IV SCH (20:37)
[2021-03-28] VITALS: BP 111/63
[2021-03-28] MEDS: normal saline 1000ml 1,000 ML IV SCH (01:46)
[2021-03-28 03:21] LABS: BASOPHILS % (AUTO) 0.4 % (0-1); EOSINOPHILS # (AUTO) 0.2 X10'3 (0-0.9); EOSINOPHILS % (AUTO) 2.7 % (0-6); HEMATOCRIT 37.5 % (42.0-52.0); HEMOGLOBIN 12.9 g/dl (14.0-17.9); LYMPHOCYTES # (AUTO) 2.5 X10'3 (1.1-4.8); LYMPHOCYTES % (AUTO) 43.1 % (21-51); MEAN CORPUSCULAR HEMOGLOBIN 30.4 PG (27.0-31.0); MEAN CORPUSCULAR HGB CONC 34.5 g/dL (33.0-36.5); MEAN PLATELET VOLUME 7.9 FL (7.4-10.4); MONOCYTES # (AUTO) 0.6 X10'3 (0-0.9); MONOCYTES % (AUTO) 10.3 % (2-12); NEUTROPHILS # (AUTO) 2.5 X10'3 (1.8-7.7); NEUTROPHILS % (AUTO) 43.5 % (42-75); PLATELET COUNT 214 X10'3 (140-440); RED BLOOD COUNT 4.26 X10'6 (4.70-6.10); RED CELL DISTRIBUTION WIDTH 12.9 % (11.5-14.5); WHITE BLOOD COUNT 5.9 X10'3 (4.5-11.0)
[2021-03-28 04:03] LABS: ALANINE AMINOTRANSFERASE 25 U/L (12-78); ALBUMIN 3.5 G/DL (3.4-5.0); ALBUMIN/GLOBULIN RATIO 1.3 (1.1-1.5); ALKALINE PHOSPHATASE 67 IU/L (20-180); ANION GAP 11 (8-16); ASPARTATE AMINO TRANSFERASE 24 U/L (10-37); BILIRUBIN,TOTAL 0.2 MG/DL (0.1-1.0); BLOOD UREA NITROGEN 15 MG/DL (7-18); BUN/CREATININE RATIO 13.5 (5.4-32.0); CALCIUM 8.4 MG/DL (8.5-10.1); CHLORIDE 108 MMOL/L (99-107); CREATININE 1.11 MG/DL (0.60-1.10); GLUCOSE 85 MG/DL (70-104); SODIUM 144 MMOL/L (135-145); TOTAL CARBON DIOXIDE 25.3 MMOL/L (24-32); TOTAL PROTEIN 6.2 G/DL (6.4-8.2); eGFR 84 ML/MIN
[2021-03-28 04:04] LABS: POTASSIUM 3.6 MMOL/L (3.5-5.1)
[2021-03-28 04:22] VITALS: BP 110/66
--- NOTE | 2021-03-28 06:30 | NUR ---
Pt sleeping, rr wnl, sleeping. will allow to sleep for now. vss
--- NOTE | 2021-03-28 06:45 | NUR ---
Problems reprioritized, patient report given, questions answered and plane of care reviewed with CATHY Shi
[2021-03-28 08:00] VITALS: BP 116/55
[2021-03-28] MEDS ORDERED: nicotine 21mg patch - 24 hr TD SCH (08:00)
--- NOTE | 2021-03-28 08:00 | NUR ---
Awoke appropriate and asking to be allowed to be released" if i want to go home i have the right to do so right?" he asked. He understands that normally the MD would discharge him and to do so early is to leave against medical advise. he said " i understand and want to leave. " he did agree to take the keppra before leaving" sure , ill take that, seems like a goood idea. " overall his behavior has been appropriate. he did get tearfull at one point about "feeling like I hav matthias controll ove rmyself" and " i don't know if my girl is home or with security or what " set up a phone for him and he called home. she did not answer but he is more calm.
[2021-03-28] MEDS: heparin, porcine 5000 units/ml vial SQ SCH ×3 (08:26→08:35)
[2021-03-28] MEDS: pantoprazole 40mg Tablet.DR PO SCH (08:26)
[2021-03-28] MEDS: levetiracetam inj 1,000 MG in normal saline 100ml IV soln 90 ML IV SCH (08:34)
--- NOTE | 2021-03-28 08:45 | NUR ---
Jose Alfredo abebe, pt asked " can i go now?' explained i neded to contact md so he is aware and then he could sign out. informed him it may take a few minutes. he is asleep now. will allow to rest then continue his AMA process when he awakes
--- NOTE | 2021-03-28 11:09 | NUR ---
Informed MD Hernandez of pt intent to leave AMA which pt was able to express calmly. He agreed to finish his KEppra before leaving. Refused his am heparin. Pt slept after receiving Kepra. md hanson was notified of his intent to leave and he replied he would dc him once he wakes up. Now, Dr Hernandez has seen pt and is discharging to home, he called meds into [facility]. Pt fiance here. and pt seems happy to d/c home
== END 2021-03-28 11:22 | disposition home or self-care (01) | DRG 53 ==
LOC: ER 22:06 → ED HOLD 03-27 03:04 → PCU 3S 03-27 05:54 → ICU 2S 03-27 10:32
PROVIDERS: ADMIT Internal Medicine; ATTEND Family Medicine
DX: G40.901 Epilepsy, unspecified, not intractable, with status epilepticus (principal); D72.829 Elevated white blood cell count, unspecified; E87.6 Hypokalemia; F31.9 Bipolar disorder, unspecified; N18.30 Chronic kidney disease, stage 3 unspecified; Z91.14 Patient's other noncompliance with medication regimen; Z88.8 Allergy status to other drugs, medicaments and biological substances
CPT/HCPCS: 36415; 80053; 80320; 82550; 82553; 82948; 83605; 83735; 85025; 87040; 93005; 94760; 94799; 99281; G0378; J1644; J1953; J2060; J2250; J3475; J3480; J7030

== ENCOUNTER 2021-03-31 14:26 | Emergency (ER) | payer MEDICAID ==
[~2021-03-31] VITALS: Ht 193 cm; Wt 77.3 kg
[~2021-03-31 14:26] MED LIST changes: -KEP500T PO; -LURA20TA PO; -ONDA4TAB6 PO; -POTA-207 PO; -POTA10TA37 PO; -PROC-8 PO; -PROC25SU31 RC
[2021-03-31] MEDS ORDERED: normal saline 1000ML IV soln IV ONE (14:35)
[2021-03-31] MEDS ORDERED: haloperidol lactate 5mg/ml inj IM ONE (14:40)
[2021-03-31] MEDS ORDERED: diphenhydrAMINE 50 mg/ml inj IV ONE (14:45)
[2021-03-31 14:47] LABS: BASOPHILS # (AUTO) 0.1 X10'3 (0-0.2); BASOPHILS % (AUTO) 0.4 % (0-1); EOSINOPHILS # (AUTO) 0.1 X10'3 (0-0.9); EOSINOPHILS % (AUTO) 0.7 % (0-6); HEMOGLOBIN 14.6 g/dl (14.0-17.9); LYMPHOCYTES # (AUTO) 3.9 X10'3 (1.1-4.8); LYMPHOCYTES % (AUTO) 22.5 % (21-51); MEAN CORPUSCULAR HEMOGLOBIN 30.8 PG (27.0-31.0); MEAN CORPUSCULAR HGB CONC 34.6 g/dL (33.0-36.5); MEAN CORPUSCULAR VOLUME 88.9 FL (78-98); MONOCYTES # (AUTO) 1.3 X10'3 (0-0.9); MONOCYTES % (AUTO) 7.5 % (2-12); NEUTROPHILS # (AUTO) 11.8 X10'3 (1.8-7.7); NEUTROPHILS % (AUTO) 68.9 % (42-75); PLATELET COUNT 316 X10'3 (140-440); RED BLOOD COUNT 4.73 X10'6 (4.70-6.10); RED CELL DISTRIBUTION WIDTH 13.1 % (11.5-14.5); WHITE BLOOD COUNT 17.2 X10'3 (4.5-11.0)
[2021-03-31 15:06] LABS: ALANINE AMINOTRANSFERASE 43 U/L (12-78); ALBUMIN 4.6 G/DL (3.4-5.0); ALBUMIN/GLOBULIN RATIO 1.3 (1.1-1.5); ALKALINE PHOSPHATASE 90 IU/L (20-180); ANION GAP 20 (8-16); ASPARTATE AMINO TRANSFERASE 23 U/L (10-37); BILIRUBIN,TOTAL 0.2 MG/DL (0.1-1.0); BLOOD UREA NITROGEN 16 MG/DL (7-18); BUN/CREATININE RATIO 12.7 (5.4-32.0); CALCIUM 9.5 MG/DL (8.5-10.1); CHLORIDE 101 MMOL/L (99-107); CREATININE 1.26 MG/DL (0.60-1.10); ETHANOL < 0.010 GM/DL (0.0-0.010); GLUCOSE 103 MG/DL (70-104); MAGNESIUM 1.8 MG/DL (1.5-2.4); POTASSIUM 4.1 MMOL/L (3.5-5.1); SODIUM 140 MMOL/L (135-145); TOTAL CARBON DIOXIDE 18.8 MMOL/L (24-32); TOTAL PROTEIN 8.1 G/DL (6.4-8.2); eGFR 73 ML/MIN
[2021-03-31] MEDS ORDERED: normal saline 1000ML IV soln IVB ONE (15:55)
[2021-03-31] MEDS ORDERED: LEVE10006 PO (17:01)
[2021-03-31] MEDS ORDERED: METO10TA3 PO (17:01)
[2021-03-31] MEDS ORDERED: LURA40TA3 PO (17:03)
[2021-03-31 17:29] VITALS: BP 110/59
[2021-03-31] MEDS ORDERED: potassium Cl 20 mEq SR tablet PO PRN ×2 (18:00)
[2021-03-31] MEDS ORDERED: mag hydrox/Alum hydrox/simeth 30ml oral suspension PO PRN (18:00)
[2021-03-31] MEDS ORDERED: acetaminophen 325mg tablet PO PRN (18:00)
[2021-03-31] MEDS ORDERED: magnesium 4gm in 100ml NS 100 ML IV PRN (18:00)
[2021-03-31] MEDS ORDERED: magnesium hydroxide 30ml (MOM) UD suspension PO PRN (18:00)
[2021-03-31] MEDS ORDERED: potassium CL 10mEq/100ml bag 100 ML IV PRN (18:00)
[2021-03-31] MEDS ORDERED: ondansetron/PF 4mg/2ml inj IV PRN (18:00)
[2021-03-31] MEDS ORDERED: magnesium Cl slow-release 64mg tablet PO PRN (18:00)
[2021-03-31] MEDS ORDERED: magnesium 2GM in 50ml NS 50 ML IV PRN (18:00)
[2021-03-31] MEDS ORDERED: normal saline 1000ml 1,000 ML IV SCH (18:00)
[2021-03-31] MEDS ORDERED: K and/or MAG REPLACEMENT MC SCH (20:00)
[2021-03-31] MEDS ORDERED: docusate sod 100mg capsule PO SCH (20:00)
== END 2021-03-31 18:15 | disposition left against medical advice (07) ==
LOC: ER 14:27
DX: R56.9 Unspecified convulsions (principal); R11.2 Nausea with vomiting, unspecified; R74.02 Elevation of levels of lactic acid dehydrogenase [LDH]; F17.210 Nicotine dependence, cigarettes, uncomplicated; E87.2 Acidosis; F12.90 Cannabis use, unspecified, uncomplicated; F15.90 Other stimulant use, unspecified, uncomplicated; Z72.89 Other problems related to lifestyle; Z87.19 Personal history of other diseases of the digestive system
CPT/HCPCS: 36415; 71045; 80053; 80320; 82948; 83605; 83735; 84145; 85025; 93005; 96361; 96372; 96374; 99285; J1200; J1630; J7030

== ENCOUNTER 2021-04-01 02:10 | Inpatient (IN) | payer MEDICAID ==
[~2021-04-01] VITALS: Ht 190.5 cm; Wt 72.7 kg
[~2021-04-01 02:10] MED LIST changes: +LEVE10006 PO; -LEVE750T PO; +LURA40TA3 PO; +METO10TA3 PO
[2021-04-01] MEDS ORDERED: levetiracetam inj 1,000 MG in normal saline 100ml IV soln 90 ML IV STA (02:14)
[2021-04-01] MEDS ORDERED: LORazepam 2 mg/ml vial ONE (02:22)
[2021-04-01] MEDS ORDERED: LORazepam 2 mg/ml vial IV ONE ×2 (02:25→08:25)
[2021-04-01] MEDS ORDERED: normal saline 1000ml 1,000 ML IV ONE (03:00)
[2021-04-01 03:09] LABS: BASOPHILS % (AUTO) 0.2 % (0-1); EOSINOPHILS % (AUTO) 0.1 % (0-6); HEMATOCRIT 41.9 % (42.0-52.0); HEMOGLOBIN 14.2 g/dl (14.0-17.9); LYMPHOCYTES # (AUTO) 1.1 X10'3 (1.1-4.8); LYMPHOCYTES % (AUTO) 6.1 % (21-51); MEAN CORPUSCULAR HEMOGLOBIN 29.9 PG (27.0-31.0); MEAN CORPUSCULAR VOLUME 88.1 FL (78-98); MEAN PLATELET VOLUME 8.4 FL (7.4-10.4); MONOCYTES # (AUTO) 0.4 X10'3 (0-0.9); MONOCYTES % (AUTO) 2.5 % (2-12); NEUTROPHILS # (AUTO) 16.4 X10'3 (1.8-7.7); NEUTROPHILS % (AUTO) 91.1 % (42-75); PLATELET COUNT 305 X10'3 (140-440); RED BLOOD COUNT 4.75 X10'6 (4.70-6.10); RED CELL DISTRIBUTION WIDTH 13.2 % (11.5-14.5); WHITE BLOOD COUNT 17.9 X10'3 (4.5-11.0)
[2021-04-01 03:12] LABS: ALBUMIN 4.5 G/DL (3.4-5.0); ANION GAP 19 (8-16); BLOOD UREA NITROGEN 10 MG/DL (7-18); BUN/CREATININE RATIO 6.8 (5.4-32.0); CALCIUM 9.2 MG/DL (8.5-10.1); CHLORIDE 101 MMOL/L (99-107); CREATININE 1.48 MG/DL (0.60-1.10); GLUCOSE 143 MG/DL (70-104); POTASSIUM 3.5 MMOL/L (3.5-5.1); SODIUM 139 MMOL/L (135-145); TOTAL CARBON DIOXIDE 18.6 MMOL/L (24-32); eGFR 61 ML/MIN
[2021-04-01] MEDS ORDERED: diphenhydrAMINE 50 mg/ml inj IV ONE (03:45)
[2021-04-01] MEDS ORDERED: diphenhydrAMINE 50 mg/ml inj ONE (03:46)
--- NOTE | 2021-04-01 03:50 | NUR ---
PT GIVEN A FEW ICE CHIPS THEN FOUND OUT OF BED CHUGGING WATER. PT THEN THREW UP AND PROCEEDED TO HAVE SEVERAL SEIZURES LASTING 1 MIN EACH APPROX. PT BACK IN BED RECIEVING FLUIDS. PT HAS RED RASH APPEARING ON NECK AND SPREADING TO FACE AND CHEST. VERBAL ORDER FOR 25 MG BENADRYL FOR PT.
[2021-04-01] MEDS ORDERED: normal saline 1000ml 1,000 ML IV SCH (05:30)
[2021-04-01] MEDS ORDERED: ondansetron 4mg rapidly disintigrating tab PO PRN ×2 (05:30)
[2021-04-01] MEDS ORDERED: morphine 2 MG/ML inj. syringe IV PRN ×2 (05:30)
[2021-04-01] MEDS ORDERED: ondansetron/PF 4mg/2ml inj IV PRN (05:30)
[2021-04-01] MEDS ORDERED: acetaminophen 650mg rectal suppository RC PRN (05:30)
[2021-04-01] MEDS ORDERED: bisacodyl 10mg suppository rectal RC PRN (05:30)
[2021-04-01] MEDS ORDERED: mag hydrox/Alum hydrox/simeth 30ml oral suspension PO PRN (05:30)
[2021-04-01] MEDS ORDERED: acetaminophen 325mg tablet PO PRN ×2 (05:30)
[2021-04-01] MEDS ORDERED: magnesium hydroxide 30ml (MOM) UD suspension PO PRN (05:30)
[2021-04-01] MEDS ORDERED: diphenhydrAMINE 25mg capsule PO PRN (05:30)
[2021-04-01] MEDS ORDERED: HYDROcodone/acetaminophen 5mg/325mg tablet PO PRN (05:30)
[2021-04-01] MEDS ORDERED: diphenhydrAMINE 50 mg/ml inj IV PRN (05:30)
--- NOTE | 2021-04-01 06:41 | NUR ---
PATIENT RECEIVED IN BED ASLEEP, SEIZURE PADS TO BOTH SIDES.WE WILL MONITOR.
[2021-04-01] MEDS ORDERED: pantoprazole 40mg Tablet.DR PO SCH (07:30)
[2021-04-01] MEDS ORDERED: heparin, porcine 5000 units/ml vial SQ SCH (08:00)
[2021-04-01] MEDS ORDERED: docusate sod 100mg capsule PO SCH (08:00)
[2021-04-01] MEDS ORDERED: levetiracetam 250mg tablet PO SCH (08:00)
[2021-04-01] MEDS ORDERED: levoFLOXACIN-Levaquin 750MG/D5 150 ML IV SCH (08:00)
[2021-04-01] MEDS ORDERED: lurasidone 20mg tablet PO SCH (08:00)
[2021-04-01 08:34] LABS: PARTIAL THROMBOPLASTIN TIME 25 SECONDS (22-32)
--- NOTE | 2021-04-01 08:37 | NUR ---
Tonic clonic seizures noted: 0747: approximately 1 minute 0800:1 1/2 minute 0824: 15 seconds patient tachycardic during tonic clonic seizures with episode of urinary incontinence and post ictal post seizure,VO from Dr. Irving 2mg ativan piv, given 1 mg iv via iv per Dr. Perez-airway patent.Dr. Perez aware as above.Patient asleep at this time.we will monitor.
--- NOTE | 2021-04-01 08:41 | NUR ---
No noted rash from administering keppra po this morning.
[2021-04-01 08:49] LABS: PHOSPHORUS 4.2 MG/DL (2.3-4.5)
[2021-04-01 09:38] VITALS: BP 135/74
--- NOTE | 2021-04-01 10:10 | NUR ---
DR. CONCEPCION at bedside.
--- NOTE | 2021-04-01 10:12 | NUR ---
TELEMED SET UP FOR CONSULT Success A new connect request was successfully created for: KOKO COPE : 2000 ConnectID: [id number] REASON: Other Reason ACUITY: Acuity Level 4 SUBMITTED: 04/01/2021 10:12 PST
--- NOTE | 2021-04-01 11:43 | NUR ---
pt stated he did not want to stay after pulling iv out of right arm.
--- NOTE | 2021-04-01 11:53 | NUR ---
paged Dr Perez-made aware that patient pulled PIV and went AMA.
[2021-04-01] MEDS ORDERED: temazepam 15mg capsule PO PRN (21:00)
== END 2021-04-01 11:53 | disposition left against medical advice (07) | DRG 53 ==
LOC: ER 02:10 → ED HOLD 05:38
PROVIDERS: ADMIT Family Medicine; ATTEND Internal Medicine
DX: G40.802 Other epilepsy, not intractable, without status epilepticus (principal); N17.9 Acute kidney failure, unspecified; E87.2 Acidosis; D72.829 Elevated white blood cell count, unspecified; F29 Unspecified psychosis not due to a substance or known physiological condition; E86.0 Dehydration; F12.90 Cannabis use, unspecified, uncomplicated; F15.10 Other stimulant abuse, uncomplicated; F31.9 Bipolar disorder, unspecified; I10 Essential (primary) hypertension; Z53.29 Procedure and treatment not carried out because of patient's decision for other reasons; Z91.19 Patient's noncompliance with other medical treatment and regimen; Z86.16 Personal history of COVID-19; Z79.899 Other long term (current) drug therapy
CPT/HCPCS: 36415; 70450; 71045; 80048; 83605; 83735; 83880; 84100; 85025; 85610; 85730; 87040; G0378; J1200; J1644; J1953; J1956; J2060; J2405; J7030

== ENCOUNTER 2021-05-02 03:35 | Inpatient (IN) | payer MEDICAID ==
[~2021-05-02] VITALS: Ht 172.7 cm; Wt 81.8 kg
[2021-05-02] MEDS ORDERED: normal saline 1000ML IV soln IVB ONE (03:50)
[2021-05-02] MEDS ORDERED: LORazepam 2 mg/ml vial IV ONE ×3 (03:50→03:55)
[2021-05-02] MEDS ORDERED: levetiracetam inj 1,000 MG in normal saline 100ml IV soln 100 ML IV SCH ×3 (03:57→08:53)
[2021-05-02 04:25] LABS: BASOPHILS # (AUTO) 0.1 X10'3 (0-0.2); BASOPHILS % (AUTO) 0.3 % (0-1); EOSINOPHILS # (AUTO) 0.1 X10'3 (0-0.9); EOSINOPHILS % (AUTO) 0.8 % (0-6); HEMATOCRIT 45.3 % (42.0-52.0); HEMOGLOBIN 15.4 g/dl (14.0-17.9); LYMPHOCYTES % (AUTO) 30.2 % (21-51); MEAN CORPUSCULAR HEMOGLOBIN 30.2 PG (27.0-31.0); MEAN CORPUSCULAR HGB CONC 34.1 g/dL (33.0-36.5); MEAN CORPUSCULAR VOLUME 88.5 FL (78-98); MONOCYTES # (AUTO) 1.7 X10'3 (0-0.9); NEUTROPHILS # (AUTO) 9.8 X10'3 (1.8-7.7); NEUTROPHILS % (AUTO) 58.7 % (42-75); PLATELET COUNT 283 X10'3 (140-440); RED BLOOD COUNT 5.12 X10'6 (4.70-6.10); RED CELL DISTRIBUTION WIDTH 12.7 % (11.5-14.5); WHITE BLOOD COUNT 16.7 X10'3 (4.5-11.0)
[2021-05-02 04:36] LABS: ALANINE AMINOTRANSFERASE 30 U/L (12-78); ALBUMIN 5.1 G/DL (3.4-5.0); ALBUMIN/GLOBULIN RATIO 1.4 (1.1-1.5); ALKALINE PHOSPHATASE 88 IU/L (20-180); ANION GAP 24 (8-16); ASPARTATE AMINO TRANSFERASE 20 U/L (10-37); BILIRUBIN,TOTAL 0.9 MG/DL (0.1-1.0); BLOOD UREA NITROGEN 21 MG/DL (7-18); BUN/CREATININE RATIO 11.8 (5.4-32.0); CALCIUM 10.3 MG/DL (8.5-10.1); CHLORIDE 105 MMOL/L (99-107); CREATININE 1.78 MG/DL (0.60-1.10); ETHANOL < 0.010 GM/DL (0.0-0.010); GLUCOSE 153 MG/DL (70-104); POTASSIUM 3.2 MMOL/L (3.5-5.1); SODIUM 147 MMOL/L (135-145); TOTAL CARBON DIOXIDE 17.8 MMOL/L (24-32); TOTAL PROTEIN 8.8 G/DL (6.4-8.2); eGFR 49 ML/MIN
[2021-05-02] MEDS ORDERED: mag hydrox/Alum hydrox/simeth 30ml oral suspension PO PRN (07:25)
[2021-05-02] MEDS ORDERED: magnesium Cl slow-release 64mg tablet PO PRN (07:25)
[2021-05-02] MEDS ORDERED: ondansetron/PF 4mg/2ml inj IV PRN (07:25)
[2021-05-02] MEDS ORDERED: normal saline 1000ml 1,000 ML IV SCH (07:25)
[2021-05-02] MEDS ORDERED: magnesium 4gm in 100ml NS 100 ML IV PRN (07:25)
[2021-05-02] MEDS ORDERED: acetaminophen 325mg tablet PO PRN (07:25)
[2021-05-02] MEDS ORDERED: magnesium 2GM in 50ml NS 50 ML IV PRN (07:25)
[2021-05-02] MEDS ORDERED: potassium Cl 20 mEq SR tablet PO PRN ×2 (07:25)
[2021-05-02] MEDS ORDERED: magnesium hydroxide 30ml (MOM) UD suspension PO PRN (07:25)
[2021-05-02] MEDS ORDERED: ondansetron/PF 4mg/2ml inj IV ONE (07:50)
[2021-05-02] MEDS ORDERED: K and/or MAG REPLACEMENT MC SCH (08:00)
[2021-05-02] MEDS ORDERED: docusate sod 100mg capsule PO SCH (08:00)
[2021-05-02] MEDS ORDERED: enoxaparin 40mg/0.4ml syringe SUBCUT SCH (08:00)
[2021-05-02] MEDS ORDERED: proCHLORperazine 10 MG/2 ml inj IV STA (08:17)
--- NOTE | 2021-05-02 08:18 | NUR ---
Dr. sanon at bedside.
--- NOTE | 2021-05-02 08:18 | NUR ---
seizure at 0815 lasted 30 seconds.
[2021-05-02] MEDS ORDERED: LORazepam 2 mg/ml vial IV STA (08:19)
[2021-05-02] MEDS ORDERED: proCHLORperazine 10 MG/2 ml inj IV PRN (08:20)
--- NOTE | 2021-05-02 08:20 | NUR ---
received an order for ativan 2mg and compazine 6mg iv.
[2021-05-02 08:21] LABS: MAGNESIUM 2.1 MG/DL (1.5-2.4); POTASSIUM 3.3 MMOL/L (3.5-5.1)
--- NOTE | 2021-05-02 08:31 | NUR ---
seizure 5 seconds.
[2021-05-02] MEDS ORDERED: non-formulary drug (Ondansetron HCl 1 TAB) PO PRN (08:50)
[2021-05-02] MEDS ORDERED: potassium Cl 20 mEq SR tablet PO SCH (08:55)
[2021-05-02] MEDS: potassium CL 10mEq/100ml bag 100 ML IV PRN ×2 (09:04→10:32)
--- NOTE | 2021-05-02 09:39 | NUR ---
OK TO GIVE KEPPRA 1000MG IV PER YOLI/PHARMACIST.
--- NOTE | 2021-05-02 14:01 | NUR ---
patient "accidentally" pulled out 2 piv's to right arm.Re started to left AC 20 gauge.
[2021-05-02 16:20] LABS: URINE AMPHETAMINE SCREEN NEGATIVE (Neg); URINE BARBITUATE SCREEN NEGATIVE (Neg); URINE BENZODIAZEPINES SCREEN NEGATIVE (Neg); URINE CANNABINOID SCREEN POSITIVE (Neg); URINE COCAINE SCREEN NEGATIVE (Neg); URINE METHADONE SCREEN NEGATIVE (Neg); URINE OPIATE SCREEN NEGATIVE (Neg); URINE PHENCYCLIDINE SCREEN NEGATIVE (Neg)
--- NOTE | 2021-05-02 17:44 | NUR ---
patient reports "My IV came out".
[2021-05-02] MEDS ORDERED: lurasidone 20mg tablet PO SCH (18:00)
[2021-05-02] MEDS ORDERED: LORazepam 2 mg/ml vial IV PRN (18:00)
[2021-05-02 18:24] VITALS: BP 154/80
[2021-05-02] MEDS ORDERED: non-formulary drug (Levetiracetam 1 TAB) PO SCH (20:00)
[2021-05-03] MEDS ORDERED: CAT1P PO (19:21)
[2021-05-03] MEDS ORDERED: ARIP10TA15 PO (19:21)
[2021-05-03] MEDS ORDERED: LORA-269 PO (19:21)
== END 2021-05-02 18:24 | disposition left against medical advice (07) | DRG 53 ==
LOC: ER 03:36 → OBSVTOIN 07:29 → ED HOLD 07:29
PROVIDERS: ADMIT Family Medicine; ATTEND Family Medicine
DX: G40.901 Epilepsy, unspecified, not intractable, with status epilepticus (principal); N17.0 Acute kidney failure with tubular necrosis; E87.0 Hyperosmolality and hypernatremia; E87.2 Acidosis; I10 Essential (primary) hypertension; F12.90 Cannabis use, unspecified, uncomplicated; F31.9 Bipolar disorder, unspecified; Z53.29 Procedure and treatment not carried out because of patient's decision for other reasons; Z91.19 Patient's noncompliance with other medical treatment and regimen
CPT/HCPCS: 36415; 80053; 80177; 80305; 80320; 83605; 83735; 84132; 85025; 93005; 96361; 96365; 96366; 96372; 96375; 96376; 99284; G0378; J0780; J1650; J1953; J2060; J2405; J3480; J3490; J7030

== ENCOUNTER 2021-05-03 16:42 | Emergency (ER) | payer MEDICAID ==
[~2021-05-03] VITALS: Ht 188 cm; Wt 82.0 kg
[2021-05-03] MEDS ORDERED: LORazepam 2 mg/ml vial ONE (17:08)
--- NOTE | 2021-05-03 17:09 | NUR ---
Pt began breathing heavy, arms stiff, hands and feet shaking. Seizure activity lasted 5 min. During the activity, I was able to flex his R UE and placed it above his face, then let go. Pt's arm stopped on his forehead and rested. Then arm moved to his side and began shaking again. Also, he turned his face to the wall. Nurse reposition his head for good airway position. He allowed his head to be moved and it remained centered. Placed seizure pads on bed and given 2 L NC.
[2021-05-03 17:23] VITALS: BP 128/71
--- NOTE | 2021-05-03 17:23 | NUR ---
Pt is awake. When asked if he was felling better he answered, "A little bit."
[2021-05-03 17:53] LABS: BASOPHILS % (AUTO) 0.2 % (0-1); EOSINOPHILS % (AUTO) 0.2 % (0-6); HEMOGLOBIN 13.8 g/dl (14.0-17.9); LYMPHOCYTES # (AUTO) 1.7 X10'3 (1.1-4.8); LYMPHOCYTES % (AUTO) 10.1 % (21-51); MEAN CORPUSCULAR HEMOGLOBIN 29.7 PG (27.0-31.0); MEAN CORPUSCULAR HGB CONC 34.6 g/dL (33.0-36.5); MEAN CORPUSCULAR VOLUME 85.7 FL (78-98); MEAN PLATELET VOLUME 8.5 FL (7.4-10.4); MONOCYTES # (AUTO) 1.5 X10'3 (0-0.9); MONOCYTES % (AUTO) 8.7 % (2-12); NEUTROPHILS # (AUTO) 13.5 X10'3 (1.8-7.7); NEUTROPHILS % (AUTO) 80.8 % (42-75); PLATELET COUNT 204 X10'3 (140-440); RED BLOOD COUNT 4.66 X10'6 (4.70-6.10); RED CELL DISTRIBUTION WIDTH 12.8 % (11.5-14.5); WHITE BLOOD COUNT 16.8 X10'3 (4.5-11.0)
[2021-05-03 18:03] LABS: ALANINE AMINOTRANSFERASE 26 U/L (12-78); ALBUMIN 4.5 G/DL (3.4-5.0); ALBUMIN/GLOBULIN RATIO 1.4 (1.1-1.5); ALKALINE PHOSPHATASE 76 IU/L (20-180); ANION GAP 14 (8-16); ASPARTATE AMINO TRANSFERASE 20 U/L (10-37); BILIRUBIN,TOTAL 0.9 MG/DL (0.1-1.0); BLOOD UREA NITROGEN 22 MG/DL (7-18); BUN/CREATININE RATIO 20.2 (5.4-32.0); CALCIUM 9.7 MG/DL (8.5-10.1); CHLORIDE 101 MMOL/L (99-107); CREATININE 1.09 MG/DL (0.60-1.10); GLUCOSE 100 MG/DL (70-104); POTASSIUM 3.2 MMOL/L (3.5-5.1); SODIUM 140 MMOL/L (135-145); TOTAL CARBON DIOXIDE 24.9 MMOL/L (24-32); TOTAL PROTEIN 7.8 G/DL (6.4-8.2); eGFR 86 ML/MIN
[2021-05-03] MEDS ORDERED: normal saline 1000ml 1,000 ML IV ONE (18:05)
[2021-05-03] MEDS ORDERED: levetiracetam inj 1,000 MG in normal saline 100ml IV soln 100 ML IV ONE (18:10)
[2021-05-03] MEDS ORDERED: LORazepam 2 mg/ml vial IV ONE (19:20)
--- NOTE | 2021-05-03 19:20 | NUR ---
Pt observed to have 2 short term seizures in the last 7 minutes. Shaking in all four limbs. No loss of bowel or bladder at this time. Mild post ictal state. Pt is talking one word at a time in answer to questions but no recent memory
[2021-05-03] MEDS ORDERED: LORA-269 PO (19:21)
[2021-05-03] MEDS ORDERED: CAT1P PO (19:21)
[2021-05-03] MEDS ORDERED: ARIP10TA15 PO (19:21)
[2021-05-03] MEDS ORDERED: diazepam inj 5 MG/ML inj. IV ONE (20:00)
[2021-05-03 20:23] LABS: URINE AMPHETAMINE SCREEN NEGATIVE (Neg); URINE BARBITUATE SCREEN NEGATIVE (Neg); URINE BENZODIAZEPINES SCREEN POSITIVE (Neg); URINE CANNABINOID SCREEN POSITIVE (Neg); URINE COCAINE SCREEN NEGATIVE (Neg); URINE METHADONE SCREEN NEGATIVE (Neg); URINE OPIATE SCREEN NEGATIVE (Neg); URINE PHENCYCLIDINE SCREEN NEGATIVE (Neg)
[2021-05-03] MEDS ORDERED: diphenhydrAMINE 50 mg/ml inj IV PRN (20:45)
[2021-05-03] MEDS ORDERED: magnesium 4gm in 100ml NS 100 ML IV PRN (20:45)
[2021-05-03] MEDS ORDERED: morphine 2 MG/ML inj. syringe IV PRN (20:45)
[2021-05-03] MEDS ORDERED: normal saline 1000ml 1,000 ML IV SCH (20:45)
[2021-05-03] MEDS ORDERED: potassium CL 10mEq/100ml bag 100 ML IV PRN (20:45)
[2021-05-03] MEDS ORDERED: bisacodyl 10mg suppository rectal RC PRN (20:45)
[2021-05-03] MEDS ORDERED: potassium Cl 20 mEq SR tablet PO PRN ×2 (20:45)
[2021-05-03] MEDS ORDERED: acetaminophen 325mg tablet PO PRN ×2 (20:45)
[2021-05-03] MEDS ORDERED: mag hydrox/Alum hydrox/simeth 30ml oral suspension PO PRN (20:45)
[2021-05-03] MEDS ORDERED: ondansetron 4mg rapidly disintigrating tab PO PRN (20:45)
[2021-05-03] MEDS ORDERED: magnesium hydroxide 30ml (MOM) UD suspension PO PRN (20:45)
[2021-05-03] MEDS ORDERED: HYDROcodone/acetaminophen 5mg/325mg tablet PO PRN (20:45)
[2021-05-03] MEDS ORDERED: diphenhydrAMINE 25mg capsule PO PRN (20:45)
[2021-05-03] MEDS ORDERED: ondansetron/PF 4mg/2ml inj IV PRN (20:45)
[2021-05-03] MEDS ORDERED: magnesium Cl slow-release 64mg tablet PO PRN (20:45)
[2021-05-03] MEDS ORDERED: magnesium 2GM in 50ml NS 50 ML IV PRN (20:45)
[2021-05-03] MEDS ORDERED: temazepam 15mg capsule PO PRN (21:00)
[2021-05-04] MEDS ORDERED: docusate sod 100mg capsule PO SCH (08:00)
[2021-05-04] MEDS ORDERED: K and/or MAG REPLACEMENT MC SCH (08:00)
[2021-05-04] MEDS ORDERED: heparin, porcine 5000 units/ml vial SQ SCH (08:00)
== END 2021-05-03 20:42 | disposition left against medical advice (07) ==
LOC: ER 16:43
DX: G40.909 Epilepsy, unspecified, not intractable, without status epilepticus (principal); R11.15 Cyclical vomiting syndrome unrelated to migraine; F12.90 Cannabis use, unspecified, uncomplicated; F15.90 Other stimulant use, unspecified, uncomplicated; E87.6 Hypokalemia; Z72.89 Other problems related to lifestyle
CPT/HCPCS: 36415; 71045; 80053; 80305; 85025; 93005; 96374; 96375; 96376; 99285; J1953; J2060; J3360; J3490; J7030

== ENCOUNTER 2021-06-18 08:53 | Emergency (ER) | payer MEDICAID ==
[~2021-06-18] VITALS: Ht 188 cm; Wt 72.7 kg
[~2021-06-18 08:53] MED LIST changes: +ARIP10TA15 PO; +CAT1P PO; +LORA-269 PO; +LURA40TA2 PO; -LURA40TA3 PO
[2021-06-18] MEDS ORDERED: haloperidol lactate 5mg/ml inj IM ONE (09:10)
[2021-06-18] MEDS ORDERED: ondansetron/PF 4mg/2ml inj IV ONE (09:10)
[2021-06-18] MEDS ORDERED: proCHLORperazine 10 MG/2 ml inj IV ONE (09:10)
[2021-06-18] MEDS ORDERED: LORazepam 2 mg/ml vial IV ONE (09:10)
[2021-06-18] MEDS ORDERED: metoclopramide 5 mg/ml inj IV ONE (09:10)
[2021-06-18] MEDS ORDERED: levetiracetam inj 1,000 MG in normal saline 100ml IV soln 90 ML IV ONE (09:10)
[2021-06-18] MEDS ORDERED: normal saline 1000ml 1,000 ML IV ONE (09:10)
[2021-06-18] MEDS ORDERED: levetiracetam-NS 1000mg/100ml 100 ML IV ONE (09:25)
[2021-06-18 10:03] LABS: BASOPHILS % (AUTO) 0.3 % (0-1); EOSINOPHILS # (AUTO) 0.1 X10'3 (0-0.9); EOSINOPHILS % (AUTO) 0.8 % (0-6); HEMOGLOBIN 13.8 g/dl (14.0-17.9); LYMPHOCYTES # (AUTO) 1.5 X10'3 (1.1-4.8); LYMPHOCYTES % (AUTO) 16.2 % (21-51); MEAN CORPUSCULAR HEMOGLOBIN 29.6 PG (27.0-31.0); MEAN CORPUSCULAR HGB CONC 33.6 g/dL (33.0-36.5); MEAN PLATELET VOLUME 8.4 FL (7.4-10.4); MONOCYTES # (AUTO) 0.6 X10'3 (0-0.9); MONOCYTES % (AUTO) 6.5 % (2-12); NEUTROPHILS % (AUTO) 76.2 % (42-75); PLATELET COUNT 192 X10'3 (140-440); RED BLOOD COUNT 4.66 X10'6 (4.70-6.10); RED CELL DISTRIBUTION WIDTH 12.6 % (11.5-14.5); WHITE BLOOD COUNT 9.2 X10'3 (4.5-11.0)
[2021-06-18 10:29] LABS: ALANINE AMINOTRANSFERASE 20 U/L (12-78); ALBUMIN 4.4 G/DL (3.4-5.0); ALBUMIN/GLOBULIN RATIO 1.6 (1.1-1.5); ANION GAP 17 (8-16); ASPARTATE AMINO TRANSFERASE 22 U/L (10-37); BILIRUBIN,TOTAL 0.5 MG/DL (0.1-1.0); BLOOD UREA NITROGEN 20 MG/DL (7-18); BUN/CREATININE RATIO 17.4 (5.4-32.0); CALCIUM 8.7 MG/DL (8.5-10.1); CHLORIDE 106 MMOL/L (99-107); CREATININE 1.15 MG/DL (0.60-1.10); GLUCOSE 111 MG/DL (70-104); MAGNESIUM 1.8 MG/DL (1.5-2.4); POTASSIUM 3.4 MMOL/L (3.5-5.1); SODIUM 142 MMOL/L (135-145); TOTAL CARBON DIOXIDE 18.9 MMOL/L (24-32); TOTAL PROTEIN 7.2 G/DL (6.4-8.2); eGFR 81 ML/MIN
[2021-06-18] MEDS ORDERED: ONDA-103 PO (10:43)
[2021-06-19] MEDS ORDERED: LURA20TA PO (05:11)
== END 2021-06-18 11:02 | disposition home or self-care (01) ==
LOC: ER 08:53
DX: R11.15 Cyclical vomiting syndrome unrelated to migraine (principal); R56.9 Unspecified convulsions; F12.90 Cannabis use, unspecified, uncomplicated; F15.90 Other stimulant use, unspecified, uncomplicated; Z87.19 Personal history of other diseases of the digestive system; Z72.89 Other problems related to lifestyle; Z91.048 Other nonmedicinal substance allergy status; Z79.899 Other long term (current) drug therapy
CPT/HCPCS: 36415; 80053; 83735; 84145; 85025; 96365; 96372; 96375; 99284; J0780; J1630; J1953; J2060; J2405; J2765; J7030

== ENCOUNTER 2021-06-19 01:56 | Emergency (ER) | payer MEDICAID ==
[~2021-06-19] VITALS: Ht 188 cm; Wt 72.7 kg
[2021-06-19] MEDS ORDERED: haloperidol lactate 5mg/ml inj IM ONE (02:05)
[2021-06-19] MEDS ORDERED: diphenhydrAMINE 50 mg/ml inj IM ONE (02:05)
--- NOTE | 2021-06-19 02:05 | NUR ---
Pt actively seizing in ER waiting room. Post seizure moved to room 7. IV started and another seizure. Post seizure Pt immediately began talking saying thank you for helping and then took out cell phone.
[2021-06-19 02:19] LABS: BASOPHILS % (AUTO) 0.1 % (0-1); EOSINOPHILS % (AUTO) 0 % (0-6); HEMATOCRIT 40.9 % (42.0-52.0); LYMPHOCYTES % (AUTO) 7.5 % (21-51); MEAN CORPUSCULAR HEMOGLOBIN 29.4 PG (27.0-31.0); MEAN CORPUSCULAR HGB CONC 34.1 g/dL (33.0-36.5); MEAN CORPUSCULAR VOLUME 86.3 FL (78-98); MEAN PLATELET VOLUME 8.6 FL (7.4-10.4); MONOCYTES # (AUTO) 0.6 X10'3 (0-0.9); MONOCYTES % (AUTO) 4.2 % (2-12); NEUTROPHILS # (AUTO) 12.1 X10'3 (1.8-7.7); NEUTROPHILS % (AUTO) 88.2 % (42-75); PLATELET COUNT 224 X10'3 (140-440); RED BLOOD COUNT 4.74 X10'6 (4.70-6.10); RED CELL DISTRIBUTION WIDTH 12.8 % (11.5-14.5); WHITE BLOOD COUNT 13.7 X10'3 (4.5-11.0)
[2021-06-19 02:41] LABS: ALANINE AMINOTRANSFERASE 29 U/L (12-78); ALBUMIN/GLOBULIN RATIO 1.5 (1.1-1.5); ALKALINE PHOSPHATASE 95 IU/L (20-180); ANION GAP 14 (8-16); ASPARTATE AMINO TRANSFERASE 28 U/L (10-37); BILIRUBIN,TOTAL 0.7 MG/DL (0.1-1.0); BLOOD UREA NITROGEN 22 MG/DL (7-18); BUN/CREATININE RATIO 16.2 (5.4-32.0); CHLORIDE 100 MMOL/L (99-107); CREATININE 1.36 MG/DL (0.60-1.10); ETHANOL < 0.010 GM/DL (0.0-0.010); GLUCOSE 155 MG/DL (70-104); POTASSIUM 3.4 MMOL/L (3.5-5.1); SODIUM 140 MMOL/L (135-145); TOTAL CARBON DIOXIDE 25.9 MMOL/L (24-32); TOTAL PROTEIN 8.4 G/DL (6.4-8.2); eGFR 67 ML/MIN
[2021-06-19] MEDS ORDERED: normal saline 1000ML IV soln IVB ONE ×2 (03:00→05:00)
[2021-06-19 03:16] VITALS: BP 144/79
[2021-06-19] MEDS ORDERED: lurasidone 20mg tablet PO ONE (05:10)
[2021-06-19] MEDS ORDERED: LURA20TA PO (05:11)
[2021-06-19 05:17] LABS: CLARITY,URINE SLIGHTLY CLOUDY (Clear); COLOR,URINE YELLOW (Yellow); GLUCOSE, URINE NEGATIVE (Neg); KETONES,URINE >=80 mg/dl (Neg); LEUKOCYTE ESTERASE ,URINE NEGATIVE (Neg); NITRITES, URINE NEGATIVE (Neg); OCCULT BLOOD,URINE NEGATIVE (Neg); PROTEIN,URINE 30 mg/dl (Neg); UROBILINOGEN,URINE 0.2 E.U/dL (0.2-1.0)
[2021-06-19 05:18] LABS: UA COLLECTION TYPE NON-SPECIFIED
[2021-06-19] MEDS ORDERED: ketorolac tromethamine 15mg/ml inj. IV ONE (05:20)
[2021-06-19] MEDS ORDERED: ondansetron/PF 4mg/2ml inj IV ONE (05:20)
[2021-06-19] MEDS ORDERED: famotidine/PF 10 mg/ml inj IV ONE (05:20)
[2021-06-19 05:21] LABS: URINE AMPHETAMINE SCREEN NEGATIVE (Neg); URINE BARBITUATE SCREEN NEGATIVE (Neg); URINE BENZODIAZEPINES SCREEN NEGATIVE (Neg); URINE CANNABINOID SCREEN POSITIVE (Neg); URINE COCAINE SCREEN NEGATIVE (Neg); URINE METHADONE SCREEN NEGATIVE (Neg); URINE OPIATE SCREEN NEGATIVE (Neg); URINE PHENCYCLIDINE SCREEN NEGATIVE (Neg)
[2021-06-19 05:23] LABS: MUCUS STRANDS MODERATE /LPF (Neg); SQUAMOUS EPITHELIAL CELL,UR FEW /LPF (FEW)
[2021-06-19 05:24] LABS: RBC,URINE 0-2 /HPF (0-2); WBC,URINE 0-4 /HPF (0-4)
[2021-06-19 05:25] LABS: BACTERIA,URINE NONE SEEN /HPF (Neg)
== END 2021-06-19 06:06 | disposition home or self-care (01) ==
LOC: ER 01:56
DX: F12.188 Cannabis abuse with other cannabis-induced disorder (principal); R56.9 Unspecified convulsions; R11.2 Nausea with vomiting, unspecified; R10.84 Generalized abdominal pain; F31.9 Bipolar disorder, unspecified; F15.90 Other stimulant use, unspecified, uncomplicated; F19.90 Other psychoactive substance use, unspecified, uncomplicated; Z86.69 Personal history of other diseases of the nervous system and sense organs; Z98.890 Other specified postprocedural states; Z72.89 Other problems related to lifestyle; Z79.899 Other long term (current) drug therapy
CPT/HCPCS: 36415; 80053; 80305; 80320; 81001; 83605; 84146; 85025; 96361; 96372; 96374; 96375; 99284; J1200; J1630; J1885; J2405; J3490; J7030

== ENCOUNTER 2021-06-20 05:50 | Emergency (ER) | payer MEDICAID ==
[~2021-06-20] VITALS: Ht 188 cm; Wt 72.7 kg
[~2021-06-20 05:50] MED LIST changes: +LURA20TA PO
[2021-06-20] MEDS ORDERED: normal saline 1000ML IV soln IVB ONE (06:25)
[2021-06-20] MEDS ORDERED: metoclopramide 5 mg/ml inj IV ONE (06:25)
[2021-06-20] MEDS ORDERED: LORazepam 2 mg/ml vial IV ONE (06:35)
[2021-06-20] MEDS ORDERED: levetiracetam-NS 1000mg/100ml 100 ML IV SCH (06:40)
[2021-06-20 07:21] LABS: BASOPHILS % (AUTO) 0.3 % (0-1); EOSINOPHILS # (AUTO) 0.1 X10'3 (0-0.9); EOSINOPHILS % (AUTO) 0.6 % (0-6); HEMATOCRIT 38.5 % (42.0-52.0); LYMPHOCYTES # (AUTO) 2.4 X10'3 (1.1-4.8); LYMPHOCYTES % (AUTO) 17.1 % (21-51); MEAN CORPUSCULAR HEMOGLOBIN 29.5 PG (27.0-31.0); MEAN CORPUSCULAR HGB CONC 33.7 g/dL (33.0-36.5); MEAN CORPUSCULAR VOLUME 87.6 FL (78-98); MEAN PLATELET VOLUME 8.7 FL (7.4-10.4); MONOCYTES # (AUTO) 0.8 X10'3 (0-0.9); MONOCYTES % (AUTO) 5.9 % (2-12); NEUTROPHILS # (AUTO) 10.5 X10'3 (1.8-7.7); NEUTROPHILS % (AUTO) 76.1 % (42-75); PLATELET COUNT 213 X10'3 (140-440); RED CELL DISTRIBUTION WIDTH 12.8 % (11.5-14.5); WHITE BLOOD COUNT 13.8 X10'3 (4.5-11.0)
[2021-06-20 07:51] LABS: ALANINE AMINOTRANSFERASE 29 U/L (12-78); ALBUMIN 4.5 G/DL (3.4-5.0); ALBUMIN/GLOBULIN RATIO 1.5 (1.1-1.5); ANION GAP 21 (8-16); ASPARTATE AMINO TRANSFERASE 33 U/L (10-37); BILIRUBIN,TOTAL 0.4 MG/DL (0.1-1.0); BLOOD UREA NITROGEN 20 MG/DL (7-18); BUN/CREATININE RATIO 15.2 (5.4-32.0); CALCIUM 9.2 MG/DL (8.5-10.1); CHLORIDE 104 MMOL/L (99-107); CKMB RELATIVE INDEX 0.2 RATIO (0-2.5); CREATINE KINASE 806 U/L (39-308); CREATININE 1.32 MG/DL (0.60-1.10); ETHANOL < 0.010 GM/DL (0.0-0.010); GLUCOSE 106 MG/DL (70-104); POTASSIUM 3.2 MMOL/L (3.5-5.1); SODIUM 142 MMOL/L (135-145); TOTAL CARBON DIOXIDE 17.1 MMOL/L (24-32); TOTAL PROTEIN 7.5 G/DL (6.4-8.2); eGFR 69 ML/MIN
[2021-06-20] MEDS ORDERED: ringers solution, lactated 1000ml IV soln IV ONE (08:20)
[2021-06-20 08:43] VITALS: BP 139/90
--- NOTE | 2021-06-20 08:56 | NUR ---
PT GOT OUT OF BED AND SAYS I'M DISCHARGING MYSELF. DC PIV WITH CATH INTACT. AMBULATORY TO LOBBY WITH GIRLFRIEND.
[2021-06-20 08:57] LABS: ALKALINE PHOSPHATASE 81 IU/L (20-180)
[2021-06-20 09:10] LABS: CLARITY,URINE CLEAR (Clear); COLOR,URINE YELLOW (Yellow); GLUCOSE, URINE NEGATIVE (Neg); KETONES,URINE TRACE mg/dl (Neg); LEUKOCYTE ESTERASE ,URINE NEGATIVE (Neg); NITRITES, URINE NEGATIVE (Neg); OCCULT BLOOD,URINE NEGATIVE (Neg); PH,URINE 5.5 (4.8-8.0); PROTEIN,URINE NEGATIVE (Neg); UROBILINOGEN,URINE 0.2 E.U/dL (0.2-1.0)
[2021-06-20 09:14] LABS: UA COLLECTION TYPE URINAL
[2021-06-20 09:17] LABS: URINE AMPHETAMINE SCREEN NEGATIVE (Neg); URINE BARBITUATE SCREEN NEGATIVE (Neg); URINE BENZODIAZEPINES SCREEN NEGATIVE (Neg); URINE CANNABINOID SCREEN POSITIVE (Neg); URINE COCAINE SCREEN NEGATIVE (Neg); URINE METHADONE SCREEN NEGATIVE (Neg); URINE OPIATE SCREEN NEGATIVE (Neg); URINE PHENCYCLIDINE SCREEN NEGATIVE (Neg)
== END 2021-06-20 08:58 | disposition left against medical advice (07) ==
LOC: ER 05:51
DX: R56.9 Unspecified convulsions (principal); E87.6 Hypokalemia; F12.188 Cannabis abuse with other cannabis-induced disorder; N28.9 Disorder of kidney and ureter, unspecified; E86.0 Dehydration; F31.9 Bipolar disorder, unspecified; F15.90 Other stimulant use, unspecified, uncomplicated; Z86.69 Personal history of other diseases of the nervous system and sense organs; Z98.890 Other specified postprocedural states; Z72.89 Other problems related to lifestyle; Z79.899 Other long term (current) drug therapy
CPT/HCPCS: 36415; 80053; 80305; 80320; 81003; 82550; 82553; 83605; 85025; 96374; 96375; 99284; J1953; J2060; J2765; J7030

== ENCOUNTER 2021-06-21 09:47 | Emergency (ER) | payer MEDICAID ==
[~2021-06-21] VITALS: Ht 190.5 cm; Wt 72.7 kg
[2021-06-21] MEDS ORDERED: LORazepam 2 mg/ml vial IV ONE (10:00)
[2021-06-21] MEDS ORDERED: normal saline 1000ML IV soln IVB ONE (10:00)
--- NOTE | 2021-06-21 10:10 | NUR ---
FULL BODY SEIZURE LASTING 15 SECONDS, HR 138, NO DESATURATION 02 SAT 96%
[2021-06-21] MEDS ORDERED: ondansetron/PF 4mg/2ml inj IV ONE (10:20)
--- NOTE | 2021-06-21 10:20 | NUR ---
PT C/O NAUSEA INFORMED DR. SALCEDO. PLEASE SEE NEW ORDERS.
[2021-06-21 11:51] VITALS: BP 143/77
== END 2021-06-21 12:36 | disposition home or self-care (01) ==
LOC: ER 09:48
DX: F44.5 Conversion disorder with seizures or convulsions (principal); F12.90 Cannabis use, unspecified, uncomplicated; F15.90 Other stimulant use, unspecified, uncomplicated; Z87.19 Personal history of other diseases of the digestive system; Z79.899 Other long term (current) drug therapy
CPT/HCPCS: 82948; 96361; 96374; 96375; 99284; J2060; J2405; J7030

== ENCOUNTER 2021-08-28 11:35 | Emergency (ER) | payer MEDICAID ==
[~2021-08-28] VITALS: Ht 188 cm; Wt 77.3 kg
--- NOTE | 2021-08-28 12:07 | NUR ---
SEIZURE PRECAUTION APPLIED
--- NOTE | 2021-08-28 12:19 | NUR ---
PT EDUCATION GIVEN ON VOMITING, PT INSTRUCTED NOT TO STICK FINGERS DOWN THROAT. PT NONCOMPLIANT WITH INSTRUCTIONS MD INFORMED
--- NOTE | 2021-08-28 13:31 | NUR ---
pt instructed to stay in bed.
[2021-08-28] MEDS ORDERED: diphenhydrAMINE 50 mg/ml inj IV ONE (14:50)
[2021-08-28] MEDS ORDERED: normal saline 1000ML IV soln IVB ONE ×2 (14:50)
[2021-08-28] MEDS ORDERED: LORazepam 2 mg/ml vial IV ONE (14:50)
[2021-08-28] MEDS ORDERED: metoclopramide 5 mg/ml inj IV ONE (14:50)
[2021-08-28 15:07] LABS: BASOPHILS % (AUTO) 0.2 % (0-1); EOSINOPHILS % (AUTO) 0 % (0-6); HEMOGLOBIN 14.2 g/dl (14.0-17.9); LYMPHOCYTES # (AUTO) 0.8 X10'3 (1.1-4.8); LYMPHOCYTES % (AUTO) 5.6 % (21-51); MEAN CORPUSCULAR HEMOGLOBIN 29.6 PG (27.0-31.0); MEAN CORPUSCULAR HGB CONC 34.7 g/dL (33.0-36.5); MEAN CORPUSCULAR VOLUME 85.4 FL (78-98); MEAN PLATELET VOLUME 8.4 FL (7.4-10.4); MONOCYTES # (AUTO) 0.8 X10'3 (0-0.9); MONOCYTES % (AUTO) 5.7 % (2-12); NEUTROPHILS # (AUTO) 12.6 X10'3 (1.8-7.7); NEUTROPHILS % (AUTO) 88.5 % (42-75); PLATELET COUNT 226 X10'3 (140-440); RED CELL DISTRIBUTION WIDTH 12.4 % (11.5-14.5); WHITE BLOOD COUNT 14.3 X10'3 (4.5-11.0)
--- NOTE | 2021-08-28 15:10 | NUR ---
1000cc nacl bolas started ivp x3 given by rn
[2021-08-28 15:25] LABS: ALANINE AMINOTRANSFERASE 29 U/L (12-78); ALBUMIN 4.7 G/DL (3.4-5.0); ALBUMIN/GLOBULIN RATIO 1.4 (1.1-1.5); ALKALINE PHOSPHATASE 82 IU/L (46-116); ANION GAP 17 (8-16); ASPARTATE AMINO TRANSFERASE 22 U/L (10-37); BILIRUBIN,TOTAL 0.6 MG/DL (0.1-1.0); BLOOD UREA NITROGEN 23 MG/DL (7-18); BUN/CREATININE RATIO 20.5 (5.4-32.0); CALCIUM 9.7 MG/DL (8.5-10.1); CHLORIDE 104 MMOL/L (99-107); CREATININE 1.12 MG/DL (0.60-1.10); GLUCOSE 128 MG/DL (70-104); LIPASE 160 U/L (73-393); POTASSIUM 3.1 MMOL/L (3.5-5.1); SODIUM 141 MMOL/L (135-145); TOTAL CARBON DIOXIDE 20.1 MMOL/L (24-32); TOTAL PROTEIN 8.1 G/DL (6.4-8.2); eGFR 83 ML/MIN
[2021-08-28 15:37] VITALS: BP 128/82
--- NOTE | 2021-08-28 16:30 | NUR ---
felix marroquin finished iv dc'd pt being discharged dressing applied
[2021-08-28] MEDS ORDERED: METO10TA3 PO (21:11)
[2021-08-28] MEDS ORDERED: ONDA4TAB12 PO (21:11)
== END 2021-08-28 16:32 | disposition home or self-care (01) ==
LOC: ER 11:35
DX: R11.2 Nausea with vomiting, unspecified (principal); K59.00 Constipation, unspecified; R19.7 Diarrhea, unspecified; F12.10 Cannabis abuse, uncomplicated; F15.10 Other stimulant abuse, uncomplicated; F31.9 Bipolar disorder, unspecified; Z88.8 Allergy status to other drugs, medicaments and biological substances; Z79.899 Other long term (current) drug therapy
CPT/HCPCS: 36415; 80053; 83690; 85025; 96374; 96375; 99284; J1200; J2060; J2765; J7030

== ENCOUNTER 2021-08-28 20:33 | Emergency (ER) | payer MEDICAID ==
[~2021-08-28] VITALS: Ht 188 cm; Wt 77.3 kg
[2021-08-28 20:48] VITALS: BP 166/89
--- NOTE | 2021-08-28 20:51 | NUR ---
Provider made aware of patients return to ER.
[2021-08-28] MEDS ORDERED: haloperidol lactate 5mg/ml inj IM ONE (21:10)
[2021-08-28] MEDS ORDERED: diphenhydrAMINE 50 mg/ml inj IM ONE (21:10)
[2021-08-28] MEDS ORDERED: ONDA4TAB12 PO (21:11)
[2021-08-28] MEDS ORDERED: METO10TA3 PO (21:11)
[2021-08-28] MEDS ORDERED: LORazepam 2 mg/ml vial IM ONE (21:45)
--- NOTE | 2021-08-28 22:00 | NUR ---
im x3 given
== END 2021-08-28 22:11 | disposition home or self-care (01) ==
LOC: VAS 20:34
DX: R11.2 Nausea with vomiting, unspecified (principal); F31.9 Bipolar disorder, unspecified; F12.10 Cannabis abuse, uncomplicated; F15.10 Other stimulant abuse, uncomplicated
CPT/HCPCS: 96372; 99284; J1200; J1630; J2060

== ENCOUNTER 2021-09-01 08:21 | Emergency (ER) | payer MEDICAID ==
[~2021-09-01] VITALS: Ht 193 cm; Wt 81.8 kg
[~2021-09-01 08:21] MED LIST changes: +ONDA4TAB12 PO
[2021-09-01] MEDS ORDERED: LORazepam 2 mg/ml vial IV ONE (08:55)
[2021-09-01] MEDS ORDERED: haloperidol lactate 5mg/ml inj IM ONE (09:20)
[2021-09-01 09:36] VITALS: BP 126/86
== END 2021-09-01 09:37 | disposition home or self-care (01) ==
LOC: ER 08:23
DX: R56.9 Unspecified convulsions (principal); F31.9 Bipolar disorder, unspecified; F12.10 Cannabis abuse, uncomplicated; F15.10 Other stimulant abuse, uncomplicated
CPT/HCPCS: 93005; 96374; 99283; J2060

== ENCOUNTER 2021-10-12 07:59 | Emergency (ER) | payer MEDICAID ==
[~2021-10-12] VITALS: Ht 177.8 cm; Wt 75.0 kg
[2021-10-12] MEDS ORDERED: normal saline 1000ml 1,000 ML IV ONE (08:45)
--- NOTE | 2021-10-12 08:55 | NUR ---
DR. NARANJO AT BEDSIDE.
[2021-10-12] MEDS ORDERED: levetiracetam inj 1,000 MG in normal saline 100ml IV soln 90 ML IV SCH ×2 (09:00→20:00)
[2021-10-12 09:11] LABS: BASOPHILS % (AUTO) 0.5 % (0-1); EOSINOPHILS # (AUTO) 0.1 X10'3 (0-0.9); EOSINOPHILS % (AUTO) 1.4 % (0-6); HEMATOCRIT 37.9 % (42.0-52.0); HEMOGLOBIN 13.2 g/dl (14.0-17.9); LYMPHOCYTES # (AUTO) 0.9 X10'3 (1.1-4.8); MEAN CORPUSCULAR HEMOGLOBIN 29.9 PG (27.0-31.0); MEAN CORPUSCULAR HGB CONC 34.8 g/dL (33.0-36.5); MEAN CORPUSCULAR VOLUME 85.9 FL (78-98); MEAN PLATELET VOLUME 8.7 FL (7.4-10.4); MONOCYTES # (AUTO) 0.5 X10'3 (0-0.9); MONOCYTES % (AUTO) 6.9 % (2-12); NEUTROPHILS # (AUTO) 5.3 X10'3 (1.8-7.7); NEUTROPHILS % (AUTO) 78.2 % (42-75); PLATELET COUNT 171 X10'3 (140-440); RED BLOOD COUNT 4.41 X10'6 (4.70-6.10); RED CELL DISTRIBUTION WIDTH 12.9 % (11.5-14.5); WHITE BLOOD COUNT 6.7 X10'3 (4.5-11.0)
[2021-10-12 09:32] LABS: ALANINE AMINOTRANSFERASE 30 U/L (12-78); ALBUMIN/GLOBULIN RATIO 1.4 (1.1-1.5); ALKALINE PHOSPHATASE 67 IU/L (46-116); ANION GAP 9 (8-16); ASPARTATE AMINO TRANSFERASE 18 U/L (10-37); BILIRUBIN,TOTAL 0.3 MG/DL (0.1-1.0); BLOOD UREA NITROGEN 14 MG/DL (7-18); BUN/CREATININE RATIO 15.6 (5.4-32.0); CALCIUM 8.7 MG/DL (8.5-10.1); CHLORIDE 107 MMOL/L (99-107); GLUCOSE 101 MG/DL (70-104); LIPASE 70 U/L (73-393); POTASSIUM 3.2 MMOL/L (3.5-5.1); SODIUM 142 MMOL/L (135-145); TOTAL CARBON DIOXIDE 26.2 MMOL/L (24-32); TOTAL PROTEIN 6.8 G/DL (6.4-8.2); eGFR > 90 ML/MIN
[2021-10-12] MEDS ORDERED: ondansetron 4mg rapidly disintigrating tab PO ONE (11:25)
[2021-10-12] MEDS ORDERED: POTASSIUM BICARB 20meq eff tab 20 MEQ TABLET.EFF PO SCH (11:25)
[2021-10-12] MEDS ORDERED: POTA-188 PO (11:31)
[2021-10-12] MEDS ORDERED: ONDA4TAB12 PO (11:31)
--- NOTE | 2021-10-12 12:05 | NUR ---
PT PROVIDED WITH PHONE TO CALL YENY FOR RIDE HOME. PT A/OX4, TSHIRT PROVIDED.
[2021-10-12 12:17] VITALS: BP 107/53
== END 2021-10-12 12:19 | disposition home or self-care (01) ==
LOC: ER 08:00
DX: R56.9 Unspecified convulsions (principal); R11.2 Nausea with vomiting, unspecified; E87.6 Hypokalemia; F12.10 Cannabis abuse, uncomplicated; F15.10 Other stimulant abuse, uncomplicated; F31.9 Bipolar disorder, unspecified; Z88.8 Allergy status to other drugs, medicaments and biological substances; Z79.899 Other long term (current) drug therapy
CPT/HCPCS: 36415; 80053; 83690; 85025; 96361; 96374; 99285; J1953; J3490; J7030

== ENCOUNTER 2021-11-05 10:07 | Emergency (ER) | payer MEDICAID ==
[~2021-11-05 10:07] MED LIST changes: +POTA-188 PO
== END 2021-11-05 12:32 | disposition left against medical advice (07) ==
LOC: ER 10:08
DX: R56.9 Unspecified convulsions (principal)

== ENCOUNTER 2021-11-07 16:27 | Emergency (ER) | payer MEDICAID | END 2021-11-07 17:00 | disposition left against medical advice (07) | LOC: ER 16:27 | DX: R56.9 Unspecified convulsions (principal); Z53.21 Procedure and treatment not carried out due to patient leaving prior to being seen by health care provider ==

== ENCOUNTER 2021-12-14 13:57 | Emergency (ER) | payer MEDICAID ==
[~2021-12-14] VITALS: Ht 188 cm; Wt 77.3 kg
[~2021-12-14 13:57] MED LIST changes: -POTA-188 PO
[2021-12-14 14:02] VITALS: BP 147/92
[2021-12-14] MEDS ORDERED: normal saline 1000ML IV soln IVB ONE (14:30)
[2021-12-14] MEDS ORDERED: metoclopramide 5 mg/ml inj IV ONE (14:30)
--- NOTE | 2021-12-14 15:47 | NUR ---
IV DC PT BEING DISCHARGED. DRESSING APPLIED
== END 2021-12-14 15:35 | disposition home or self-care (01) ==
LOC: ER 13:57
DX: R11.15 Cyclical vomiting syndrome unrelated to migraine (principal); F31.9 Bipolar disorder, unspecified; F15.10 Other stimulant abuse, uncomplicated; F19.10 Other psychoactive substance abuse, uncomplicated; Z87.19 Personal history of other diseases of the digestive system; Z79.899 Other long term (current) drug therapy
CPT/HCPCS: 96361; 96374; 99283; J2765; J7030

== ENCOUNTER 2021-12-16 06:46 | Emergency (ER) | payer MEDICAID ==
[2021-12-16 07:54] LABS: BASOPHILS % (AUTO) 0.3 % (0-1); EOSINOPHILS % (AUTO) 0.1 % (0-6); HEMOGLOBIN 12.9 g/dl (14.0-17.9); LYMPHOCYTES # (AUTO) 1.2 X10'3 (1.1-4.8); LYMPHOCYTES % (AUTO) 12.9 % (21-51); MEAN CORPUSCULAR HEMOGLOBIN 30.1 PG (27.0-31.0); MEAN CORPUSCULAR HGB CONC 34.9 g/dL (33.0-36.5); MEAN CORPUSCULAR VOLUME 86.3 FL (78-98); MEAN PLATELET VOLUME 8.5 FL (7.4-10.4); MONOCYTES # (AUTO) 0.6 X10'3 (0-0.9); MONOCYTES % (AUTO) 6.5 % (2-12); NEUTROPHILS # (AUTO) 7.8 X10'3 (1.8-7.7); NEUTROPHILS % (AUTO) 80.2 % (42-75); PLATELET COUNT 183 X10'3 (140-440); RED BLOOD COUNT 4.29 X10'6 (4.70-6.10); RED CELL DISTRIBUTION WIDTH 12.9 % (11.5-14.5); WHITE BLOOD COUNT 9.7 X10'3 (4.5-11.0)
[2021-12-16 08:01] LABS: ALANINE AMINOTRANSFERASE 38 U/L (12-78); ALBUMIN 4.5 G/DL (3.4-5.0); ALBUMIN/GLOBULIN RATIO 1.6 (1.1-1.5); ALKALINE PHOSPHATASE 66 IU/L (46-116); ANION GAP 13 (8-16); ASPARTATE AMINO TRANSFERASE 38 U/L (10-37); BILIRUBIN,TOTAL 0.9 MG/DL (0.1-1.0); BLOOD UREA NITROGEN 18 MG/DL (7-18); CALCIUM 9.1 MG/DL (8.5-10.1); CHLORIDE 102 MMOL/L (99-107); GLUCOSE 104 MG/DL (70-104); SODIUM 140 MMOL/L (135-145); TOTAL CARBON DIOXIDE 25.5 MMOL/L (24-32); TOTAL PROTEIN 7.4 G/DL (6.4-8.2); eGFR > 90 ML/MIN
--- NOTE | 2021-12-16 08:12 | NUR ---
Critical lab call: potassium 3.0. aware.
--- NOTE | 2021-12-16 09:13 | NUR ---
Patient's number [phone].
[2021-12-16] MEDS ORDERED: LEVE10006 PO (09:36)
[2021-12-16 09:44] LABS: MAGNESIUM 1.7 MG/DL (1.5-2.4)
[2021-12-16] MEDS: normal saline 1000ml 1,000 ML IV ONE ×2 (09:44→11:17)
[2021-12-16] MEDS: potassium Cl 20 mEq SR tablet PO ONE (09:45)
[2021-12-16] MEDS: levetiracetam inj 1,000 MG in normal saline 100ml IV soln 100 ML IV STA (09:52)
[2021-12-16] MEDS: LORazepam 2 mg/ml vial IV ONE ×3 (10:08→10:24)
--- NOTE | 2021-12-16 10:15 | NUR ---
Patient is purposley shaking body abruptly.
--- NOTE | 2021-12-16 10:20 | NUR ---
Patient continuos to purposley shake body abruptly. Vital signs are stable. Please see vitals. MD, provider aware and at bedside.
--- NOTE | 2021-12-16 10:30 | NUR ---
Patient continues to purposley shake body abruptly. Vital signs are stable. Please see vitals. Will continue to monitor.
--- NOTE | 2021-12-16 10:46 | NUR ---
Critical lab call Lactic acid 4.5 Addendum: 12/16/21 at 1047 by GAMA critical lab call: Lactic aci 4.5, provider aware.
--- NOTE | 2021-12-16 11:00 | NUR ---
Patient continues to purposley shake body abruptly. Vital signs are stable. Please see vitals. Will continue to monitor.
[2021-12-16 11:15] LABS: CREATINE KINASE 835 U/L (39-308)
[2021-12-16] MEDS: haloperidol lactate 5mg/ml inj IM ONE (11:16)
[2021-12-16] MEDS: diphenhydrAMINE 50 mg/ml inj IV ONE (11:17)
--- NOTE | 2021-12-16 11:45 | NUR ---
Patient continues to purposley shake body abruptly. Vital signs are stable. Please see vitals. Will continue to monitor.
[2021-12-16 16:00] VITALS: BP 124/82
--- NOTE | 2021-12-16 16:03 | NUR ---
Called patients, wifes, listed number at which, family answer the phone and stated that it was her home phone number and she was not in at the moment. I was given a cell phone number [phone]. Called number, when to voicemail. Voicemail message full unable to leave a voicemail.
== END 2021-12-16 17:19 | disposition home or self-care (01) ==
LOC: ER 06:46
DX: R56.9 Unspecified convulsions (principal); F31.9 Bipolar disorder, unspecified; F15.90 Other stimulant use, unspecified, uncomplicated; F19.90 Other psychoactive substance use, unspecified, uncomplicated; Z86.69 Personal history of other diseases of the nervous system and sense organs; Z98.890 Other specified postprocedural states; Z72.89 Other problems related to lifestyle; Z79.899 Other long term (current) drug therapy
CPT/HCPCS: 36415; 80053; 82550; 83605; 83735; 85025; 96361; 96365; 96372; 96375; 99285; J1200; J1630; J1953; J2060; J3490; J7030

== ENCOUNTER 2022-03-06 15:56 | Inpatient (IN) | payer MEDICAID ==
[~2022-03-06] VITALS: Ht 188 cm; Wt 67.7 kg
[2022-03-06 16:20] LABS: BASOPHILS # (AUTO) 0.1 X10'3 (0-0.2); MONOCYTES # (AUTO) 2.3 X10'3 (0-0.9)
[2022-03-06 16:24] LABS: BASOPHILS % (AUTO) 0.3 % (0-1); EOSINOPHILS % (AUTO) 0.1 % (0-6); LYMPHOCYTES # (AUTO) 1.4 X10'3 (1.1-4.8); LYMPHOCYTES % (AUTO) 7.9 % (21-51); MEAN PLATELET VOLUME 8.3 FL (7.4-10.4); MONOCYTES % (AUTO) 12.7 % (2-12); NEUTROPHILS # (AUTO) 14.5 X10'3 (1.8-7.7); PLATELET COUNT 263 X10'3 (140-440); WHITE BLOOD COUNT 18.3 X10'3 (4.5-11.0)
[2022-03-06 16:26] LABS: ALANINE AMINOTRANSFERASE 99 U/L (12-78); ALBUMIN 5.3 G/DL (3.4-5.0); ALBUMIN/GLOBULIN RATIO 1.5 (1.1-1.5); ALKALINE PHOSPHATASE 97 IU/L (46-116); ANION GAP 21 (8-16); ASPARTATE AMINO TRANSFERASE 272 U/L (10-37); BILIRUBIN,TOTAL 2.1 MG/DL (0.1-1.0); BLOOD UREA NITROGEN 68 MG/DL (7-18); BUN/CREATININE RATIO 30.5 (5.4-32.0); CALCIUM 9.9 MG/DL (8.5-10.1); CHLORIDE 83 MMOL/L (99-107); CREATININE 2.23 MG/DL (0.60-1.10); GLUCOSE 106 MG/DL (70-104); POTASSIUM 3.3 MMOL/L (3.5-5.1); SODIUM 126 MMOL/L (135-145); TOTAL CARBON DIOXIDE 22.5 MMOL/L (24-32); TOTAL PROTEIN 8.9 G/DL (6.4-8.2); eGFR 37 ML/MIN
[2022-03-06 16:34] LABS: ETHANOL < 0.010 GM/DL (0.0-0.010)
[2022-03-06 17:05] LABS: HEMATOCRIT 38.8 % (42.0-52.0); HEMOGLOBIN 13.6 g/dl (14.0-17.9); MEAN CORPUSCULAR HEMOGLOBIN 29.5 PG (27.0-31.0); MEAN CORPUSCULAR HGB CONC 35.1 g/dL (33.0-36.5); MEAN CORPUSCULAR VOLUME 83.9 FL (78-98); RED BLOOD COUNT 4.63 X10'6 (4.70-6.10); RED CELL DISTRIBUTION WIDTH 12.5 % (11.5-14.5)
[2022-03-06] MEDS ORDERED: haloperidol lactate 5mg/ml inj IVH ONE (18:40)
[2022-03-06] MEDS ORDERED: normal saline 1000ML IV soln IVB ONE (18:40)
[2022-03-06] MEDS ORDERED: LORazepam 2 mg/ml vial IV ONE (18:40)
[2022-03-06] MEDS ORDERED: diphenhydrAMINE 50 mg/ml inj IV ONE (18:40)
[2022-03-06] MEDS ORDERED: mag hydrox/Alum hydrox/simeth 30ml oral suspension PO PRN (19:10)
[2022-03-06] MEDS ORDERED: magnesium hydroxide 30ml (MOM) UD suspension PO PRN (19:10)
[2022-03-06] MEDS ORDERED: magnesium Cl slow-release 64mg tablet PO PRN (19:10)
[2022-03-06] MEDS ORDERED: potassium Cl 20 mEq SR tablet PO PRN (19:10)
[2022-03-06] MEDS ORDERED: acetaminophen 325mg tablet PO PRN (19:10)
[2022-03-06] MEDS ORDERED: potassium Cl 40MEQ/1/2NS 520ml 520 ML IV PRN (19:10)
[2022-03-06] MEDS ORDERED: magnesium 4gm in 100ml NS 100 ML IV PRN (19:10)
[2022-03-06] MEDS ORDERED: ondansetron/PF 4mg/2ml inj IV PRN (19:10)
[2022-03-06] MEDS ORDERED: LORazepam 1 MG tablet PO PRN ×2 (19:20→21:15)
[2022-03-06] MEDS ORDERED: dextrose 50%-water 50ml dispensing syringe IV PRN (19:20)
[2022-03-06] MEDS ORDERED: LORazepam 2 mg/ml vial IV PRN (19:20)
[2022-03-06] MEDS ORDERED: haloperidol 5mg tablet PO PRN (19:20)
[2022-03-06] MEDS ORDERED: haloperidol lactate 5mg/ml inj IM PRN (19:20)
[2022-03-06] MEDS ORDERED: haloperidol lactate 5mg/ml inj IM ONE (19:35)
[2022-03-06] MEDS: heparin, porcine 5000 units/ml vial SQ SCH (20:00)
[2022-03-06] MEDS: K and/or MAG REPLACEMENT MC SCH (20:00)
[2022-03-06] MEDS ORDERED: docusate sod 100mg capsule PO SCH (20:00)
[2022-03-06 20:17] LABS: CREATINE KINASE 14210 U/L (39-308)
[2022-03-06] MEDS ORDERED: temazepam 15mg capsule PO PRN (21:00)
--- NOTE | 2022-03-06 22:31 | NUR ---
Patient in room ED 8. I have received report from Cigar BanderReji Vega Rn and had the opportunity to ask questions and will assume patient care upon arrival to the room. Addendum: 03/06/22 at 2232 by Alexa Maloney RN Amended: Links added.
--- NOTE | 2022-03-06 22:40 | NUR ---
Patient arrived from ER on [place] and transferred to bed with minimal assistance. I placed the bed alarm on for safety and did vitals at this time. Will give care of patient to Alexa MORGAN once she is back from break.
[2022-03-06 22:45] VITALS: BP 171/93
[2022-03-06] MEDS: normal saline 1000ml 1,000 ML IV SCH (22:55)
[2022-03-07 02:00] VITALS: BP 145/74
[2022-03-07] MEDS ORDERED: potassium Cl 20mEq/100mL bag 200 ML IV PRN (02:10)
[2022-03-07] MEDS: normal saline 1000ml 1,000 ML IV SCH ×4 (02:19→20:46)
[2022-03-07] MEDS: potassium Cl 20mEq/100mL bag 100 ML IV PRN ×2 (02:40→04:54)
[2022-03-07 03:03] LABS: CLARITY,URINE CLEAR (Clear); COLOR,URINE YELLOW (Yellow); GLUCOSE, URINE NEGATIVE (Neg); KETONES,URINE 15 mg/dl (Neg); LEUKOCYTE ESTERASE ,URINE NEGATIVE (Neg); NITRITES, URINE NEGATIVE (Neg); OCCULT BLOOD,URINE LARGE (Neg); PROTEIN,URINE 30 mg/dl (Neg); UROBILINOGEN,URINE 0.2 E.U/dL (0.2-1.0)
[2022-03-07 03:04] LABS: UA COLLECTION TYPE CLN CATCH MIDSTREAM
[2022-03-07 03:10] LABS: URINE AMPHETAMINE SCREEN NEGATIVE (Neg); URINE BARBITUATE SCREEN NEGATIVE (Neg); URINE BENZODIAZEPINES SCREEN NEGATIVE (Neg); URINE CANNABINOID SCREEN POSITIVE (Neg); URINE COCAINE SCREEN NEGATIVE (Neg); URINE METHADONE SCREEN NEGATIVE (Neg); URINE OPIATE SCREEN NEGATIVE (Neg); URINE PHENCYCLIDINE SCREEN NEGATIVE (Neg)
[2022-03-07 03:11] LABS: BACTERIA,URINE NONE SEEN /HPF (Neg); MUCUS STRANDS NONE SEEN /LPF (Neg); RBC,URINE 0-2 /HPF (0-2); SQUAMOUS EPITHELIAL CELL,UR FEW /LPF (FEW); WBC,URINE 0-4 /HPF (0-4)
[2022-03-07] MEDS: LORazepam 2 mg/ml vial IV PRN ×4 (03:54→20:33)
--- NOTE | 2022-03-07 03:57 | NUR ---
pt medicated with Ativan 2mg iv for pseudoseizure activity whole body stiff bouncing up and down on the bed with eyes open. pt calmed talking him through it touching his shoulder airway intact. pt relaxed with this before iv Ativan finished being infused. prior to this pt had gotten up out of bed grabbed roommates pitcher liner filled it with water guzzled it and immediately projectile vomited on floor and bed. pt bed changed and floor mopped up. after Ativan infused pt now calm. instructed pt he is not to eat and drink at this time and when he can he needs to do it very slow and small amounts
[2022-03-07 06:00] VITALS: BP 163/84
[2022-03-07 06:39] LABS: BASOPHILS % (AUTO) 0.1 % (0-1); EOSINOPHILS % (AUTO) 0 % (0-6); LYMPHOCYTES # (AUTO) 1.7 X10'3 (1.1-4.8); LYMPHOCYTES % (AUTO) 12.3 % (21-51); MEAN CORPUSCULAR HEMOGLOBIN 30.3 PG (27.0-31.0); MEAN PLATELET VOLUME 8.9 FL (7.4-10.4); MONOCYTES # (AUTO) 2.2 X10'3 (0-0.9); MONOCYTES % (AUTO) 15.9 % (2-12); NEUTROPHILS # (AUTO) 10.1 X10'3 (1.8-7.7); NEUTROPHILS % (AUTO) 71.7 % (42-75); PLATELET COUNT 228 X10'3 (140-440); WHITE BLOOD COUNT 14.1 X10'3 (4.5-11.0)
[2022-03-07 07:04] LABS: ALANINE AMINOTRANSFERASE 100 U/L (12-78); ALBUMIN 4.6 G/DL (3.4-5.0); ALBUMIN/GLOBULIN RATIO 1.3 (1.1-1.5); ALKALINE PHOSPHATASE 86 IU/L (46-116); ANION GAP 14 (8-16); ASPARTATE AMINO TRANSFERASE 248 U/L (10-37); BILIRUBIN,TOTAL 1.3 MG/DL (0.1-1.0); BLOOD UREA NITROGEN 55 MG/DL (7-18); CALCIUM 8.9 MG/DL (8.5-10.1); CHLORIDE 91 MMOL/L (99-107); CREATININE 1.31 MG/DL (0.60-1.10); GLUCOSE 100 MG/DL (70-104); POTASSIUM 3.2 MMOL/L (3.5-5.1); SODIUM 133 MMOL/L (135-145); TOTAL PROTEIN 8.2 G/DL (6.4-8.2); eGFR 69 ML/MIN
--- NOTE | 2022-03-07 07:06 | NUR ---
Problems reprioritized. Patient report given, questions answered & plan of care reviewed with CATHY MARTINO. Addendum: 03/07/22 at 0707 by Alexa Maloney RN Amended: Links added.
[2022-03-07 07:36] LABS: HEMATOCRIT 37.9 % (42.0-52.0); HEMOGLOBIN 13.6 g/dl (14.0-17.9); MEAN CORPUSCULAR HGB CONC 35.7 g/dL (33.0-36.5); MEAN CORPUSCULAR VOLUME 84.8 FL (78-98); RED BLOOD COUNT 4.47 X10'6 (4.70-6.10); RED CELL DISTRIBUTION WIDTH 12.4 % (11.5-14.5)
[2022-03-07] MEDS ORDERED: multivitamins, therapeutics tablet PO SCH (08:00)
[2022-03-07] MEDS: K and/or MAG REPLACEMENT MC SCH ×2 (08:00→20:00)
[2022-03-07] MEDS: heparin, porcine 5000 units/ml vial SQ SCH ×2 (09:36→20:33)
[2022-03-07 10:00] VITALS: BP 148/86
[2022-03-07] MEDS ORDERED: ARIP15TA19 PO (11:57)
[2022-03-07] MEDS ORDERED: LEVE750T PO (11:57)
[2022-03-07] MEDS ORDERED: METO-292 PO (11:57)
[2022-03-07] MEDS ORDERED: DIPH-1055 PO (11:57)
[2022-03-07] MEDS: potassium CL 10mEq/100ml bag 100 ML IV PRN ×4 (12:06→16:46)
--- NOTE | 2022-03-07 12:30 | NUR ---
Patient began having pseudoseizures fairly continuously just prior to 1000. Ativan 2mg x1 given without much relief. Dr Ford notified, which she came to the room to evaluate and ordered a tele neuro consult. He was evaluated by tele neuro while he continued to have impulsive movements but was able to follow direction from Neurologist during assessment. This round of pseudoseizures lasted over and hour until about 1130 when patient turns to student in room who was at bedside and asked for a water and has now been resting comfortably without evidence of pseudoseizure at this time.
--- NOTE | 2022-03-07 15:00 | NUR ---
Patient refusing continuous EEG. It was recommended by tele neurology that patient be transferred to facility with continuos monitoring which we were unsure initially if we could do here at this hospital. EEG eventually got back to us and said it was something we can do here but the problem is he is well known by EEG and is non compliant of wearing the cap and keeping it on. When patient saw EEG, he automatically became anxious and wanted to go AMA, but patient is also on a 5150. So Dr Ford notified by both myself and EEG that patient refused. Patients in room and calmed him down. Carmine RAND, [facility] came to talk to patient and will write note of recommendations for Dr Ford. says can get somewhat aggressive when anxious and him needing to stay with 5150 and for medical needs will be difficult.
[2022-03-07 15:41] LABS: CREATINE KINASE 10893 U/L (39-308)
[2022-03-07] MEDS ORDERED: nicotine 14mg patch - 24hr TD SCH (17:06)
[2022-03-07] MEDS: nicotine 14mg patch - 24hr TD SCH (17:59)
[2022-03-07 18:00] VITALS: BP 124/59
--- NOTE | 2022-03-07 19:08 | NUR ---
Patient calmer at this time with at bedside. No pseudoseizures at this time
--- NOTE | 2022-03-07 19:09 | NUR ---
Report given to Aline Mendoza, all questions answered at this time.
[2022-03-07] MEDS: acetaminophen 325mg tablet PO PRN (20:41)
[2022-03-07 22:00] VITALS: BP 121/79
[2022-03-07] MEDS: Melatonin 3mg tablet PO SCH (23:32)
[2022-03-08] MEDS: LORazepam 2 mg/ml vial IV PRN ×2 (00:32→20:04)
[2022-03-08] MEDS: normal saline 1000ml 1,000 ML IV SCH ×5 (01:00→20:12)
[2022-03-08 06:00] VITALS: BP 90/49
--- NOTE | 2022-03-08 06:27 | NUR ---
Problems reprioritized. Patient report given, questions answered & plan of care reviewed with REMI MORGAN.
[2022-03-08 06:34] LABS: BASOPHILS % (AUTO) 0.1 % (0-1); EOSINOPHILS # (AUTO) 0.1 X10'3 (0-0.9); HEMATOCRIT 35.5 % (42.0-52.0); HEMOGLOBIN 12.4 g/dl (14.0-17.9); LYMPHOCYTES # (AUTO) 1.5 X10'3 (1.1-4.8); MEAN CORPUSCULAR HEMOGLOBIN 30.1 PG (27.0-31.0); MEAN CORPUSCULAR HGB CONC 34.9 g/dL (33.0-36.5); MEAN CORPUSCULAR VOLUME 86.3 FL (78-98); MEAN PLATELET VOLUME 8.5 FL (7.4-10.4); MONOCYTES # (AUTO) 1.1 X10'3 (0-0.9); MONOCYTES % (AUTO) 13.5 % (2-12); NEUTROPHILS # (AUTO) 5.4 X10'3 (1.8-7.7); NEUTROPHILS % (AUTO) 66.4 % (42-75); PLATELET COUNT 173 X10'3 (140-440); RED BLOOD COUNT 4.11 X10'6 (4.70-6.10); RED CELL DISTRIBUTION WIDTH 12.7 % (11.5-14.5); WHITE BLOOD COUNT 8.1 X10'3 (4.5-11.0)
[2022-03-08 07:01] LABS: ALANINE AMINOTRANSFERASE 82 U/L (12-78); ALBUMIN 3.6 G/DL (3.4-5.0); ALBUMIN/GLOBULIN RATIO 1.1 (1.1-1.5); ALKALINE PHOSPHATASE 68 IU/L (46-116); ANION GAP 8 (8-16); ASPARTATE AMINO TRANSFERASE 165 U/L (10-37); BILIRUBIN,TOTAL 1.1 MG/DL (0.1-1.0); BLOOD UREA NITROGEN 31 MG/DL (7-18); BUN/CREATININE RATIO 38.3 (5.4-32.0); CALCIUM 8.3 MG/DL (8.5-10.1); CHLORIDE 101 MMOL/L (99-107); CREATININE 0.81 MG/DL (0.60-1.10); GLUCOSE 82 MG/DL (70-104); POTASSIUM 3.3 MMOL/L (3.5-5.1); SODIUM 138 MMOL/L (135-145); TOTAL CARBON DIOXIDE 28.7 MMOL/L (24-32); eGFR > 90 ML/MIN
--- NOTE | 2022-03-08 07:05 | NUR ---
Patient in room [facility] 358B. I have received report from CATHY MYERS and had the opportunity to ask questions and assume patient care.
[2022-03-08] MEDS: K and/or MAG REPLACEMENT MC SCH ×2 (08:00→20:00)
[2022-03-08] MEDS: potassium Cl 20 mEq SR tablet PO PRN ×3 (09:27→18:46)
[2022-03-08] MEDS: pantoprazole 40mg Tablet.DR PO SCH (09:27)
[2022-03-08] MEDS: heparin, porcine 5000 units/ml vial SQ SCH ×2 (09:28→20:03)
[2022-03-08] MEDS: nicotine 14mg patch - 24hr TD SCH (09:29)
[2022-03-08 09:54] LABS: CREATINE KINASE 5323 U/L (39-308)
[2022-03-08 10:00] VITALS: BP 128/82
[2022-03-08] MEDS: divalproex sodium 500mg tablet.DR PO SCH ×2 (10:50→14:15)
[2022-03-08] MEDS: LIDOcaine Viscous 15ml cup MM PRN ×2 (13:43→20:56)
[2022-03-08 18:00] VITALS: BP 125/68
[2022-03-08] MEDS ORDERED: diphenhydrAMINE 25mg capsule PO PRN (19:10)
[2022-03-08] MEDS ORDERED: metoclopramide 10mg tablet PO PRN (19:10)
[2022-03-08] MEDS: ARIPIPRAZOLE 15 MG TABLET PO SCH (20:04)
[2022-03-08] MEDS: Melatonin 3mg tablet PO SCH (20:07)
[2022-03-08 22:00] VITALS: BP 108/45
[2022-03-09] MEDS: normal saline 1000ml 1,000 ML IV SCH ×3 (00:43→11:34)
[2022-03-09] MEDS: LORazepam 2 mg/ml vial IV PRN ×2 (01:44→14:37)
[2022-03-09 06:00] VITALS: BP 130/65
--- NOTE | 2022-03-09 06:27 | NUR ---
Problems reprioritized. Patient report given, questions answered & plan of care reviewed with CATHY Reddy.
[2022-03-09 06:40] LABS: BASOPHILS % (AUTO) 0.4 % (0-1); EOSINOPHILS # (AUTO) 0.2 X10'3 (0-0.9); EOSINOPHILS % (AUTO) 2.3 % (0-6); HEMATOCRIT 33.4 % (42.0-52.0); HEMOGLOBIN 11.6 g/dl (14.0-17.9); LYMPHOCYTES # (AUTO) 1.8 X10'3 (1.1-4.8); LYMPHOCYTES % (AUTO) 21.7 % (21-51); MEAN CORPUSCULAR HEMOGLOBIN 30.2 PG (27.0-31.0); MEAN CORPUSCULAR HGB CONC 34.9 g/dL (33.0-36.5); MEAN CORPUSCULAR VOLUME 86.7 FL (78-98); MEAN PLATELET VOLUME 8.4 FL (7.4-10.4); MONOCYTES # (AUTO) 1.2 X10'3 (0-0.9); MONOCYTES % (AUTO) 13.9 % (2-12); NEUTROPHILS # (AUTO) 5.2 X10'3 (1.8-7.7); NEUTROPHILS % (AUTO) 61.7 % (42-75); PLATELET COUNT 159 X10'3 (140-440); RED BLOOD COUNT 3.85 X10'6 (4.70-6.10); RED CELL DISTRIBUTION WIDTH 12.8 % (11.5-14.5); WHITE BLOOD COUNT 8.4 X10'3 (4.5-11.0)
--- NOTE | 2022-03-09 06:49 | NUR ---
Patient in room [facility] 358. I have received report from Alisa MORGAN and had the opportunity to ask questions and assume patient care.
[2022-03-09 07:09] LABS: ALANINE AMINOTRANSFERASE 82 U/L (12-78); ALBUMIN 3.2 G/DL (3.4-5.0); ALBUMIN/GLOBULIN RATIO 1.1 (1.1-1.5); ALKALINE PHOSPHATASE 64 IU/L (46-116); ANION GAP 4 (8-16); ASPARTATE AMINO TRANSFERASE 119 U/L (10-37); BILIRUBIN,TOTAL 0.5 MG/DL (0.1-1.0); BLOOD UREA NITROGEN 10 MG/DL (7-18); BUN/CREATININE RATIO 15.4 (5.4-32.0); CALCIUM 7.9 MG/DL (8.5-10.1); CHLORIDE 105 MMOL/L (99-107); CREATININE 0.65 MG/DL (0.60-1.10); GLUCOSE 101 MG/DL (70-104); POTASSIUM 3.5 MMOL/L (3.5-5.1); SODIUM 137 MMOL/L (135-145); TOTAL CARBON DIOXIDE 27.8 MMOL/L (24-32); eGFR > 90 ML/MIN
[2022-03-09] MEDS ORDERED: pantoprazole 40mg Tablet.DR PO SCH (07:30)
[2022-03-09] MEDS: K and/or MAG REPLACEMENT MC SCH (08:00)
[2022-03-09] MEDS: nicotine 14mg patch - 24hr TD SCH (08:00)
[2022-03-09] MEDS ORDERED: levetiracetam 250mg tablet PO SCH (08:00)
[2022-03-09] MEDS: pantoprazole 40mg Tablet.DR PO SCH (09:02)
[2022-03-09] MEDS: divalproex sodium 500mg tablet.DR PO SCH (09:05)
[2022-03-09] MEDS: heparin, porcine 5000 units/ml vial SQ SCH (09:09)
[2022-03-09] MEDS: acetaminophen 325mg tablet PO PRN (09:10)
[2022-03-09 09:42] LABS: CREATINE KINASE 3180 U/L (39-308)
[2022-03-09] MEDS ORDERED: LIDOcaine Viscous 15ml cup MM PRN (09:59)
[2022-03-09 10:00] VITALS: BP 122/67
[2022-03-09] MEDS: ARIPIPRAZOLE 15 MG TABLET PO SCH (10:43)
--- NOTE | 2022-03-09 15:00 | NUR ---
Received call from Tele that they were having trouble getting a good reading on patients Tele monitor unsure if they were seeing ST changes. I went into patients room replaced all leads and called Tele back and they said it is reading alot better now with not seeing ST changes. Patients current vitals show as BP 136/67 HR 76 99 RA RR 16 pain 7/10 in mouth with thrush.
--- NOTE | 2022-03-09 15:01 | NUR ---
er tech called to report leads off on pt., spoke with telesales specialist regarding rhythm due to monitor saying a-fib. Will continue to monitor pt.
--- NOTE | 2022-03-09 15:25 | NUR ---
PAGER ID: [phone] MESSAGE: Autumn Surg [id number] Re: [facility] 358B Please call re: mental health evaluation. They need a note stating patient is medically clear if that is your diagnosis
--- NOTE | 2022-03-09 15:51 | NUR ---
PAGER ID: [phone] MESSAGE: [phone] Maureen- Pt 358B Josue Pt. cleared by [facility] for NH. Pt. wanted to ask if can go home with oral nystatin, oral lidocaine extremely sore throat, Ativan, and Aripiprazole due to being out of med cannot get into primary until03/16/22.
--- NOTE | 2022-03-09 16:58 | NUR ---
PAGER ID: [phone] MESSAGE: [phone] Josue pt. needs oral nystatin for dc, refill of Aripiprazole and Keppra upon dc due to out of meds and cannot get into primary until 03/16/22 at the [facility].
--- NOTE | 2022-03-09 17:38 | NUR ---
PAGER ID: [phone] MESSAGE: [phone]. 358B Josue just wanted to confirm that you received my last pages regarding the medication need for oral nystatin for throat, Keppra, and Aripiprazole because not able to get into primary until 03/16/22.
[2022-03-09] MEDS ORDERED: NYST1000 PO (17:41)
[2022-03-09] MEDS ORDERED: ARIP15TA19 PO (17:41)
[2022-03-09] MEDS ORDERED: LEVE750T PO (17:41)
--- NOTE | 2022-03-09 18:14 | NUR ---
Pt. DC IV removed, cannula intact, tele removed. Pt discharge home with all personal belongings via walking accompanied by spouse to private vehicle. DC instructions given to patient and had opportunity to ask questions.
[2022-03-10 16:40] LABS: HBSAG SCREEN Negative (Negative); HEPATITIS C ANTIBODY <0.1 s/co ratio (0.0-0.9)
[2022-03-11] MEDS ORDERED: thiamine 100mg tablet PO SCH (08:00)
[2022-03-11] MEDS ORDERED: folic acid 1mg tablet PO SCH (08:00)
== END 2022-03-09 18:15 | disposition home or self-care (01) | DRG 469 ==
LOC: ER 15:56 → ED HOLD 19:15 → EDBEDREQ 21:02 → SUR 3N 22:41
PROVIDERS: ADMIT Internal Medicine; ATTEND Internal Medicine
DX: N17.9 Acute kidney failure, unspecified (principal); B37.0 Candidal stomatitis; M62.82 Rhabdomyolysis; R56.9 Unspecified convulsions; E87.1 Hypo-osmolality and hyponatremia; D72.829 Elevated white blood cell count, unspecified; E86.0 Dehydration; R19.7 Diarrhea, unspecified; F31.81 Bipolar II disorder; E87.6 Hypokalemia; F12.90 Cannabis use, unspecified, uncomplicated; Z20.822 Contact with and (suspected) exposure to COVID-19; N18.9 Chronic kidney disease, unspecified; R74.8 Abnormal levels of other serum enzymes; F17.200 Nicotine dependence, unspecified, uncomplicated; G89.29 Other chronic pain; F15.90 Other stimulant use, unspecified, uncomplicated; R74.01 Elevation of levels of liver transaminase levels; Z88.8 Allergy status to other drugs, medicaments and biological substances; Z79.899 Other long term (current) drug therapy; Z56.0 Unemployment, unspecified
CPT/HCPCS: 36415; 74176; 76700; 80053; 80305; 80320; 81001; 82550; 83605; 84145; 84443; 85025; 86705; 86706; 86803; 87040; 87081; 87340; 87811; 99285; A6258; A6402; G0378; J1200; J1630; J1644; J2060; J3480; J7030

== ENCOUNTER 2022-03-12 08:10 | Emergency (ER) | payer MEDICAID ==
[~2022-03-12] VITALS: Ht 177.8 cm; Wt 63.5 kg
[~2022-03-12 08:10] MED LIST changes: -ARIP10TA15 PO; +ARIP15TA19 PO; -CAT1P PO; -LEVE10006 PO; +LEVE750T PO; -LORA-269 PO; -LURA20TA PO; -LURA40TA2 PO; -METO10TA3 PO; +NYST1000 PO; -ONDA-103 PO; -ONDA4TAB12 PO; -POTA-82 PO
[2022-03-12] MEDS ORDERED: normal saline 1000ML IV soln IVB ONE (08:15)
[2022-03-12] MEDS ORDERED: LORazepam 2 mg/ml vial IV ONE (08:15)
[2022-03-12 08:17] VITALS: BP 132/84
[2022-03-12 08:42] LABS: BASOPHILS % (AUTO) 0.5 % (0-1); EOSINOPHILS # (AUTO) 0.1 X10'3 (0-0.9); EOSINOPHILS % (AUTO) 1.2 % (0-6); HEMATOCRIT 39.8 % (42.0-52.0); HEMOGLOBIN 13.9 g/dl (14.0-17.9); LYMPHOCYTES # (AUTO) 1.6 X10'3 (1.1-4.8); LYMPHOCYTES % (AUTO) 15.9 % (21-51); MEAN CORPUSCULAR HGB CONC 34.9 g/dL (33.0-36.5); MEAN CORPUSCULAR VOLUME 85.9 FL (78-98); MEAN PLATELET VOLUME 7.8 FL (7.4-10.4); MONOCYTES # (AUTO) 0.7 X10'3 (0-0.9); MONOCYTES % (AUTO) 6.7 % (2-12); NEUTROPHILS # (AUTO) 7.6 X10'3 (1.8-7.7); NEUTROPHILS % (AUTO) 75.7 % (42-75); PLATELET COUNT 247 X10'3 (140-440); RED BLOOD COUNT 4.64 X10'6 (4.70-6.10); RED CELL DISTRIBUTION WIDTH 12.8 % (11.5-14.5); WHITE BLOOD COUNT 10.1 X10'3 (4.5-11.0)
[2022-03-12 08:47] LABS: ALANINE AMINOTRANSFERASE 82 U/L (12-78); ALBUMIN 3.9 G/DL (3.4-5.0); ALKALINE PHOSPHATASE 84 IU/L (46-116); ANION GAP 9 (8-16); ASPARTATE AMINO TRANSFERASE 51 U/L (10-37); BILIRUBIN,TOTAL 0.3 MG/DL (0.1-1.0); BLOOD UREA NITROGEN 13 MG/DL (7-18); BUN/CREATININE RATIO 15.7 (5.4-32.0); CALCIUM 9.7 MG/DL (8.5-10.1); CHLORIDE 103 MMOL/L (99-107); CREATININE 0.83 MG/DL (0.60-1.10); GLUCOSE 101 MG/DL (70-104); MAGNESIUM 1.9 MG/DL (1.5-2.4); POTASSIUM 4.1 MMOL/L (3.5-5.1); SODIUM 139 MMOL/L (135-145); TOTAL PROTEIN 7.8 G/DL (6.4-8.2); eGFR > 90 ML/MIN
[2022-03-12] MEDS ORDERED: QUET50TA PO (18:07)
== END 2022-03-12 09:38 | disposition home or self-care (01) ==
LOC: ER 08:10
DX: G40.909 Epilepsy, unspecified, not intractable, without status epilepticus (principal); F31.9 Bipolar disorder, unspecified; F15.10 Other stimulant abuse, uncomplicated; Z79.899 Other long term (current) drug therapy
CPT/HCPCS: 36415; 71045; 80053; 83735; 85025; 96361; 96374; 99284; J2060; J7030; J7040

== ENCOUNTER 2022-03-12 16:19 | Emergency (ER) | payer MEDICAID ==
[~2022-03-12] VITALS: Ht 180.3 cm; Wt 60.0 kg
--- NOTE | 2022-03-12 17:08 | NUR ---
Once patient arrived in ER patient began having seizures like gallito never seen before. The movement originates in the hip and the patient has normal resperations for the entire duration of the seizure. The patient is also able to speak during said "Seizure". It should also be noted that the patient was gagging himself to throwup. When questioned why , the patient stated "I am throwing up anyway". Continueing to monitor.
[2022-03-12] MEDS ORDERED: ketamine 50 mg/ml 10ml vial IM ONE (17:25)
[2022-03-12] MEDS ORDERED: ondansetron 4mg rapidly disintigrating tab PO ONE (17:25)
[2022-03-12] MEDS ORDERED: QUET50TA PO (18:07)
[2022-03-12 19:31] VITALS: BP 145/87
[2022-03-12] MEDS ORDERED: QUEtiapine 25mg tablet PO SCH (21:00)
== END 2022-03-12 19:30 | disposition home or self-care (01) ==
LOC: ER 16:19
DX: R56.9 Unspecified convulsions (principal); F31.9 Bipolar disorder, unspecified; F15.10 Other stimulant abuse, uncomplicated; Z79.899 Other long term (current) drug therapy
CPT/HCPCS: 96372; 99284; J3490

== ENCOUNTER 2022-03-13 05:59 | Emergency (ER) | payer MEDICAID ==
[~2022-03-13] VITALS: Ht 188 cm; Wt 63.6 kg
[~2022-03-13 05:59] MED LIST changes: +QUET50TA PO
[2022-03-13 07:10] VITALS: BP 133/86
[2022-03-13] MEDS ORDERED: diazepam 5mg tablet PO ONE (07:40)
--- NOTE | 2022-03-13 18:25 | NUR ---
PT LEFT W/O MEDICATION. PT WALKED OUT OF ER WITHOUT TREATMENT, W/O DC INSTRUCTIONS.
[2022-03-13] MEDS ORDERED: quetiapine 100mg tablet PO SCH (21:00)
== END 2022-03-13 18:27 | disposition home or self-care (01) ==
LOC: ER 06:00
DX: G40.909 Epilepsy, unspecified, not intractable, without status epilepticus (principal); F31.9 Bipolar disorder, unspecified; F15.20 Other stimulant dependence, uncomplicated; F12.90 Cannabis use, unspecified, uncomplicated; Z91.09 Other allergy status, other than to drugs and biological substances
CPT/HCPCS: 99284

== ENCOUNTER 2022-06-20 05:31 | Emergency (ER) | payer MEDICAID ==
[~2022-06-20] VITALS: Ht 188 cm; Wt 72.7 kg
[~2022-06-20 05:31] MED LIST changes: -NYST1000 PO
[2022-06-20] MEDS ORDERED: metoclopramide 5 mg/ml inj IV ONE (05:50)
[2022-06-20] MEDS ORDERED: diphenhydrAMINE 50 mg/ml inj IV ONE (05:50)
[2022-06-20] MEDS ORDERED: LORazepam 2 mg/ml vial IV ONE (05:50)
[2022-06-20] MEDS ORDERED: ketorolac trometh. 30mg/ml inj. IV ONE (05:50)
[2022-06-20] MEDS ORDERED: normal saline 1000ml 1,000 ML IV ONE (05:50)
[2022-06-20] MEDS ORDERED: ondansetron/PF 4mg/2ml inj IV ONE (05:50)
[2022-06-20 06:39] LABS: BASOPHILS % (AUTO) 0.3 % (0-1); EOSINOPHILS % (AUTO) 0 % (0-6); HEMATOCRIT 39.2 % (42.0-52.0); HEMOGLOBIN 13.5 g/dl (14.0-17.9); LYMPHOCYTES # (AUTO) 0.7 X10'3 (1.1-4.8); LYMPHOCYTES % (AUTO) 6.5 % (21-51); MEAN CORPUSCULAR HEMOGLOBIN 29.3 PG (27.0-31.0); MEAN CORPUSCULAR HGB CONC 34.4 g/dL (33.0-36.5); MEAN CORPUSCULAR VOLUME 85.2 FL (78-98); MEAN PLATELET VOLUME 8.9 FL (7.4-10.4); MONOCYTES # (AUTO) 0.6 X10'3 (0-0.9); MONOCYTES % (AUTO) 5.2 % (2-12); NEUTROPHILS # (AUTO) 9.7 X10'3 (1.8-7.7); PLATELET COUNT 207 X10'3 (140-440); RED CELL DISTRIBUTION WIDTH 12.5 % (11.5-14.5)
[2022-06-20 06:56] LABS: ALANINE AMINOTRANSFERASE 33 U/L (12-78); ALBUMIN/GLOBULIN RATIO 1.7 (1.1-1.5); ALKALINE PHOSPHATASE 84 IU/L (46-116); ANION GAP 19 (8-16); ASPARTATE AMINO TRANSFERASE 48 U/L (10-37); BILIRUBIN,TOTAL 1.1 MG/DL (0.1-1.0); BLOOD UREA NITROGEN 21 MG/DL (7-18); BUN/CREATININE RATIO 18.1 (5.4-32.0); CALCIUM 9.6 MG/DL (8.5-10.1); CHLORIDE 104 MMOL/L (99-107); CREATININE 1.16 MG/DL (0.60-1.10); GLUCOSE 126 MG/DL (70-104); LIPASE < 50 U/L (73-393); POTASSIUM 3.5 MMOL/L (3.5-5.1); SODIUM 143 MMOL/L (135-145); TOTAL CARBON DIOXIDE 20.1 MMOL/L (24-32); eGFR 79 ML/MIN
[2022-06-20 07:31] VITALS: BP 152/86
[2022-06-20] MEDS ORDERED: famotidine/PF 10 mg/ml inj IV ONE (07:45)
[2022-06-20] MEDS ORDERED: acetaminophen 325mg tablet PO ONE (07:45)
[2022-06-20] MEDS ORDERED: mag hydrox/Alum hydrox/simeth 30ml oral suspension PO ONE (07:45)
[2022-06-20 09:11] LABS: CREATINE KINASE 1855 U/L (39-308)
[2022-06-20] MEDS ORDERED: ONDA4TAB12 PO (09:43)
--- NOTE | 2022-06-20 10:00 | NUR ---
Pt tolerated PO challenge of saltine crackers and ice water.
--- NOTE | 2022-06-20 10:00 | NUR ---
Pt declined voiding for UA at this time.
== END 2022-06-20 11:00 | disposition home or self-care (01) ==
LOC: ER 05:33
DX: R10.13 Epigastric pain (principal); R11.10 Vomiting, unspecified; F31.9 Bipolar disorder, unspecified; F15.20 Other stimulant dependence, uncomplicated; Z91.09 Other allergy status, other than to drugs and biological substances
CPT/HCPCS: 36415; 80053; 82550; 83690; 85025; 96361; 96374; 96375; 99284; J1200; J1885; J2060; J2405; J2765; J3490; J7030

== ENCOUNTER 2022-06-28 09:23 | Emergency (ER) | payer MEDICAID ==
[~2022-06-28] VITALS: Ht 188 cm; Wt 80.0 kg
[~2022-06-28 09:23] MED LIST changes: +ONDA4TAB12 PO
[2022-06-28 09:41] VITALS: BP 154/89
== END 2022-06-28 10:34 | disposition left against medical advice (07) ==
LOC: ER 09:24
DX: R11.10 Vomiting, unspecified (principal); Z53.21 Procedure and treatment not carried out due to patient leaving prior to being seen by health care provider

== ENCOUNTER 2022-07-09 12:18 | Emergency (ER) | payer MEDICAID ==
[~2022-07-09] VITALS: Ht 180.3 cm; Wt 81.8 kg
[2022-07-09] MEDS ORDERED: ketorolac tromethamine 15mg/ml inj. IV ONE (12:40)
[2022-07-09] MEDS ORDERED: haloperidol lactate 5mg/ml inj IM ONE (12:40)
[2022-07-09] MEDS ORDERED: normal saline 1000ML IV soln IVB ONE ×2 (12:40→13:45)
[2022-07-09 12:57] LABS: BASOPHILS % (AUTO) 0.2 % (0-1); EOSINOPHILS % (AUTO) 0 % (0-6); HEMATOCRIT 40.5 % (42.0-52.0); HEMOGLOBIN 13.7 g/dl (14.0-17.9); LYMPHOCYTES # (AUTO) 1.3 X10'3 (1.1-4.8); LYMPHOCYTES % (AUTO) 8.8 % (21-51); MEAN CORPUSCULAR HEMOGLOBIN 29.2 PG (27.0-31.0); MEAN CORPUSCULAR HGB CONC 33.8 g/dL (33.0-36.5); MEAN CORPUSCULAR VOLUME 86.2 FL (78-98); MEAN PLATELET VOLUME 7.8 FL (7.4-10.4); MONOCYTES # (AUTO) 0.7 X10'3 (0-0.9); NEUTROPHILS # (AUTO) 12.6 X10'3 (1.8-7.7); PLATELET COUNT 314 X10'3 (140-440); RED BLOOD COUNT 4.69 X10'6 (4.70-6.10); RED CELL DISTRIBUTION WIDTH 12.3 % (11.5-14.5); WHITE BLOOD COUNT 14.7 X10'3 (4.5-11.0)
[2022-07-09 13:19] LABS: ALANINE AMINOTRANSFERASE 32 U/L (12-78); ALBUMIN 4.6 G/DL (3.4-5.0); ALBUMIN/GLOBULIN RATIO 1.3 (1.1-1.5); ALKALINE PHOSPHATASE 90 IU/L (46-116); ANION GAP 15 (8-16); ASPARTATE AMINO TRANSFERASE 29 U/L (10-37); BILIRUBIN,TOTAL 0.5 MG/DL (0.1-1.0); BLOOD UREA NITROGEN 20 MG/DL (7-18); BUN/CREATININE RATIO 16.4 (5.4-32.0); CALCIUM 9.7 MG/DL (8.5-10.1); CHLORIDE 104 MMOL/L (99-107); CREATININE 1.22 MG/DL (0.60-1.10); GLUCOSE 147 MG/DL (70-104); LIPASE < 50 U/L (73-393); MAGNESIUM 1.6 MG/DL (1.5-2.4); POTASSIUM 3.1 MMOL/L (3.5-5.1); SODIUM 142 MMOL/L (135-145); TOTAL CARBON DIOXIDE 23.2 MMOL/L (24-32); TOTAL PROTEIN 8.2 G/DL (6.4-8.2); eGFR 74 ML/MIN
[2022-07-09] MEDS ORDERED: magnesium 2GM in 50ml NS 50 ML IV ONE (13:45)
[2022-07-09] MEDS ORDERED: potassium CL 10mEq/100ml bag 100 ML IV ONE (13:45)
[2022-07-09 14:57] VITALS: BP 150/75
== END 2022-07-09 14:59 | disposition home or self-care (01) ==
LOC: ER 12:19
DX: F12.10 Cannabis abuse, uncomplicated (principal); R11.15 Cyclical vomiting syndrome unrelated to migraine; E87.6 Hypokalemia; E83.42 Hypomagnesemia; F31.9 Bipolar disorder, unspecified; F15.10 Other stimulant abuse, uncomplicated; Z79.899 Other long term (current) drug therapy; Z79.1 Long term (current) use of non-steroidal anti-inflammatories (NSAID)
CPT/HCPCS: 36415; 80053; 83690; 83735; 85025; 96361; 96365; 96372; 96375; 99284; J1630; J1885; J3475; J7030

== ENCOUNTER 2022-07-11 02:05 | Emergency (ER) | payer MEDICAID ==
[~2022-07-11] VITALS: Ht 188 cm; Wt 81.8 kg
[2022-07-11] MEDS ORDERED: diphenhydrAMINE 50 mg/ml inj IV ONE ×2 (03:10→05:40)
[2022-07-11] MEDS ORDERED: metoclopramide 5 mg/ml inj IV ONE (03:10)
[2022-07-11] MEDS ORDERED: proCHLORperazine 10 MG/2 ml inj IV ONE (03:10)
[2022-07-11] MEDS ORDERED: ondansetron/PF 4mg/2ml inj IV ONE (03:10)
[2022-07-11] MEDS ORDERED: haloperidol lactate 5mg/ml inj IM ONE ×2 (03:10→05:40)
[2022-07-11] MEDS ORDERED: normal saline 1000ML IV soln IVB ONE (03:10)
--- NOTE | 2022-07-11 03:18 | NUR ---
pt has full body seizure activity and than he sat up and vomited into a bag and than immediately when his states she is leaving he says "Why are you leaving me? No your not going home, than why did I come up here." She leaves and than as soon as she walks out of the room he starts shaking again, and as he is shaking he slows down to 'clear a cough' and than starts up again. He is never post-ictal and can move and do things you ask as he moves his body around the bed.
[2022-07-11 03:41] LABS: BASOPHILS % (AUTO) 0.3 % (0-1); EOSINOPHILS # (AUTO) 0.1 X10'3 (0-0.9); EOSINOPHILS % (AUTO) 0.3 % (0-6); HEMATOCRIT 40.8 % (42.0-52.0); HEMOGLOBIN 13.9 g/dl (14.0-17.9); LYMPHOCYTES # (AUTO) 2.6 X10'3 (1.1-4.8); LYMPHOCYTES % (AUTO) 16.4 % (21-51); MEAN CORPUSCULAR HEMOGLOBIN 29.6 PG (27.0-31.0); MEAN CORPUSCULAR HGB CONC 34.2 g/dL (33.0-36.5); MEAN CORPUSCULAR VOLUME 86.7 FL (78-98); MEAN PLATELET VOLUME 7.9 FL (7.4-10.4); MONOCYTES # (AUTO) 1.2 X10'3 (0-0.9); MONOCYTES % (AUTO) 7.8 % (2-12); NEUTROPHILS # (AUTO) 11.7 X10'3 (1.8-7.7); NEUTROPHILS % (AUTO) 75.2 % (42-75); PLATELET COUNT 310 X10'3 (140-440); RED CELL DISTRIBUTION WIDTH 12.6 % (11.5-14.5); WHITE BLOOD COUNT 15.6 X10'3 (4.5-11.0)
--- NOTE | 2022-07-11 03:42 | NUR ---
He asked a nurse for a blanket, she got up to get him a blanket and when she left the area he jumped out of bed, over the side rail to get a drink of water from the sink. When he seen that staff saw him do this he jumps back into bed and starts his shaking again.
[2022-07-11 04:04] LABS: ALANINE AMINOTRANSFERASE 38 U/L (12-78); ALBUMIN 4.5 G/DL (3.4-5.0); ALBUMIN/GLOBULIN RATIO 1.3 (1.1-1.5); ALKALINE PHOSPHATASE 89 IU/L (46-116); ANION GAP 18 (8-16); ASPARTATE AMINO TRANSFERASE 48 U/L (10-37); BILIRUBIN,TOTAL 0.7 MG/DL (0.1-1.0); BLOOD UREA NITROGEN 19 MG/DL (7-18); BUN/CREATININE RATIO 14.7 (5.4-32.0); CALCIUM 9.2 MG/DL (8.5-10.1); CHLORIDE 102 MMOL/L (99-107); CREATININE 1.29 MG/DL (0.60-1.10); GLUCOSE 103 MG/DL (70-104); MAGNESIUM 1.9 MG/DL (1.5-2.4); POTASSIUM 3.2 MMOL/L (3.5-5.1); SODIUM 143 MMOL/L (135-145); TOTAL CARBON DIOXIDE 22.6 MMOL/L (24-32); TOTAL PROTEIN 7.9 G/DL (6.4-8.2); eGFR 70 ML/MIN
[2022-07-11 04:09] LABS: CREATINE KINASE 1442 U/L (39-308)
[2022-07-11] MEDS ORDERED: normal saline 1000ml 1,000 ML IV ONE (04:30)
[2022-07-11 05:36] VITALS: BP 137/80
[2022-07-11] MEDS ORDERED: potassium Cl 20 mEq SR tablet PO ONE (06:15)
[2022-07-11 06:44] LABS: LIPASE 91 U/L (73-393)
== END 2022-07-11 06:33 | disposition home or self-care (01) ==
LOC: ER 02:06
DX: R11.15 Cyclical vomiting syndrome unrelated to migraine (principal); F31.9 Bipolar disorder, unspecified; F15.90 Other stimulant use, unspecified, uncomplicated; Z98.890 Other specified postprocedural states; Z88.8 Allergy status to other drugs, medicaments and biological substances; Z79.899 Other long term (current) drug therapy; Z86.69 Personal history of other diseases of the nervous system and sense organs
CPT/HCPCS: 36415; 80053; 82550; 83690; 83735; 85025; 96361; 96372; 96374; 96375; 99285; J0780; J1200; J1630; J2405; J2765; J7030

== ENCOUNTER 2022-07-20 13:44 | Emergency (ER) | payer MEDICAID ==
[~2022-07-20] VITALS: Ht 188 cm; Wt 75.0 kg
[2022-07-20 13:53] VITALS: BP 96/70
[2022-07-20 14:38] LABS: BASOPHILS # (AUTO) 0.1 X10'3 (0-0.2); BASOPHILS % (AUTO) 0.5 % (0-1); EOSINOPHILS % (AUTO) 0.3 % (0-6); HEMATOCRIT 40.1 % (42.0-52.0); HEMOGLOBIN 13.6 g/dl (14.0-17.9); LYMPHOCYTES # (AUTO) 1.6 X10'3 (1.1-4.8); MEAN CORPUSCULAR HEMOGLOBIN 29.5 PG (27.0-31.0); MEAN CORPUSCULAR HGB CONC 33.8 g/dL (33.0-36.5); MEAN CORPUSCULAR VOLUME 87.1 FL (78-98); MONOCYTES # (AUTO) 0.7 X10'3 (0-0.9); MONOCYTES % (AUTO) 6.5 % (2-12); NEUTROPHILS # (AUTO) 8.9 X10'3 (1.8-7.7); NEUTROPHILS % (AUTO) 78.7 % (42-75); PLATELET COUNT 244 X10'3 (140-440); RED BLOOD COUNT 4.61 X10'6 (4.70-6.10); RED CELL DISTRIBUTION WIDTH 12.7 % (11.5-14.5); WHITE BLOOD COUNT 11.3 X10'3 (4.5-11.0)
[2022-07-20 14:56] LABS: ALANINE AMINOTRANSFERASE 32 U/L (12-78); ALBUMIN 4.5 G/DL (3.4-5.0); ALBUMIN/GLOBULIN RATIO 1.4 (1.1-1.5); ALKALINE PHOSPHATASE 84 IU/L (46-116); ANION GAP 11 (8-16); ASPARTATE AMINO TRANSFERASE 26 U/L (10-37); BILIRUBIN,TOTAL 0.5 MG/DL (0.1-1.0); BLOOD UREA NITROGEN 12 MG/DL (7-18); BUN/CREATININE RATIO 12.8 (10.0-20.0); CALCIUM 9.6 MG/DL (8.5-10.1); CHLORIDE 104 MMOL/L (99-107); CREATININE 0.94 MG/DL (0.60-1.10); GLUCOSE 115 MG/DL (70-104); LIPASE 79 U/L (73-393); POTASSIUM 3.5 MMOL/L (3.5-5.1); SODIUM 142 MMOL/L (135-145); TOTAL PROTEIN 7.7 G/DL (6.4-8.2); eGFR > 90 ML/MIN
[2022-07-20] MEDS ORDERED: PROC25SU31 RC (21:59)
== END 2022-07-20 18:47 | disposition left against medical advice (07) ==
LOC: ER 13:45
DX: R11.10 Vomiting, unspecified (principal); Z53.21 Procedure and treatment not carried out due to patient leaving prior to being seen by health care provider
CPT/HCPCS: 36415; 80053; 83690; 85025; 99281

== ENCOUNTER 2022-07-20 19:25 | Emergency (ER) | payer MEDICAID ==
[~2022-07-20] VITALS: Ht 188 cm; Wt 75.0 kg
[2022-07-20 20:06] LABS: BASOPHILS % (AUTO) 0.3 % (0-1); EOSINOPHILS % (AUTO) 0 % (0-6); HEMATOCRIT 40.3 % (42.0-52.0); HEMOGLOBIN 13.7 g/dl (14.0-17.9); LYMPHOCYTES # (AUTO) 0.9 X10'3 (1.1-4.8); LYMPHOCYTES % (AUTO) 7.1 % (21-51); MEAN CORPUSCULAR HEMOGLOBIN 29.5 PG (27.0-31.0); MEAN CORPUSCULAR HGB CONC 33.9 g/dL (33.0-36.5); MEAN PLATELET VOLUME 8.2 FL (7.4-10.4); MONOCYTES # (AUTO) 0.7 X10'3 (0-0.9); MONOCYTES % (AUTO) 5.1 % (2-12); NEUTROPHILS # (AUTO) 11.6 X10'3 (1.8-7.7); NEUTROPHILS % (AUTO) 87.5 % (42-75); PLATELET COUNT 232 X10'3 (140-440); RED BLOOD COUNT 4.64 X10'6 (4.70-6.10); RED CELL DISTRIBUTION WIDTH 13.1 % (11.5-14.5); WHITE BLOOD COUNT 13.2 X10'3 (4.5-11.0)
[2022-07-20 20:27] LABS: ALANINE AMINOTRANSFERASE 30 U/L (12-78); ALBUMIN 4.3 G/DL (3.4-5.0); ALBUMIN/GLOBULIN RATIO 1.5 (1.1-1.5); ALKALINE PHOSPHATASE 76 IU/L (46-116); ANION GAP 13 (8-16); ASPARTATE AMINO TRANSFERASE 32 U/L (10-37); BILIRUBIN,TOTAL 1.1 MG/DL (0.1-1.0); BLOOD UREA NITROGEN 13 MG/DL (7-18); BUN/CREATININE RATIO 13.8 (10.0-20.0); CALCIUM 9.4 MG/DL (8.5-10.1); CHLORIDE 104 MMOL/L (99-107); CREATININE 0.94 MG/DL (0.60-1.10); GLUCOSE 109 MG/DL (70-104); LIPASE < 50 U/L (73-393); POTASSIUM 3.9 MMOL/L (3.5-5.1); SODIUM 143 MMOL/L (135-145); TOTAL CARBON DIOXIDE 26.5 MMOL/L (24-32); TOTAL PROTEIN 7.2 G/DL (6.4-8.2); eGFR > 90 ML/MIN
[2022-07-20] MEDS ORDERED: haloperidol lactate 5mg/ml inj IM ONE (21:10)
[2022-07-20] MEDS ORDERED: diphenhydrAMINE 50 mg/ml inj IV ONE (21:10)
[2022-07-20] MEDS ORDERED: LORazepam 2 mg/ml vial IV ONE (21:10)
[2022-07-20] MEDS ORDERED: normal saline 1000ml 1,000 ML IV ONE (21:10)
[2022-07-20] MEDS ORDERED: PROC25SU31 RC (21:59)
[2022-07-20 23:12] VITALS: BP 122/87
== END 2022-07-20 23:13 | disposition home or self-care (01) ==
LOC: ER 19:25
DX: R11.15 Cyclical vomiting syndrome unrelated to migraine (principal); R10.84 Generalized abdominal pain; F31.9 Bipolar disorder, unspecified; F15.90 Other stimulant use, unspecified, uncomplicated; Z72.89 Other problems related to lifestyle; Z79.899 Other long term (current) drug therapy; Z88.8 Allergy status to other drugs, medicaments and biological substances
CPT/HCPCS: 36415; 80053; 83690; 85025; 96372; 96374; 96375; 99284; J1200; J1630; J2060; J7030

== ENCOUNTER 2022-10-28 22:02 | Emergency (ER) | payer MEDICAID ==
--- NOTE | 2022-10-28 22:09 | NUR ---
Patient was having voluntary seizures during triage. After he stopped, he states he didnt want to stay and ambulated out of the ED w/out difficulty.
--- NOTE | 2022-10-28 22:10 | NUR ---
called out to sharon, he is laying there in the doorway by meghan. He is flopping around. He is well known to this ER, with psuedo seizures. His eyes are open. He is hitting his head on the floor. I placed my shoe under his head, he was than hitting my shoe. He literally lifted up his head and moved himself over away from my shoe and hit his head on the floor and so I moved his head again and told him to stop it. His girlfriend told him to get up and he did.
== END 2022-10-28 22:16 | disposition left against medical advice (07) ==
LOC: ER 22:03
DX: R56.9 Unspecified convulsions (principal); Z53.21 Procedure and treatment not carried out due to patient leaving prior to being seen by health care provider
CPT/HCPCS: 99281

== ENCOUNTER 2023-01-13 04:43 | Emergency (ER) | payer MEDICAID ==
[~2023-01-13] VITALS: Ht 188 cm; Wt 68.2 kg
[2023-01-13 04:46] VITALS: TEMP 97.7
[2023-01-13] MEDS ORDERED: metoclopramide 5 mg/ml inj IV ONE (05:00)
[2023-01-13] MEDS ORDERED: ondansetron/PF 4mg/2ml inj IV ONE ×2 (05:00→13:20)
[2023-01-13] MEDS ORDERED: diphenhydrAMINE 50 mg/ml inj IV ONE (05:00)
[2023-01-13] MEDS ORDERED: proCHLORperazine 10 MG/2 ml inj IV ONE (05:00)
[2023-01-13] MEDS ORDERED: haloperidol lactate 5mg/ml inj IM ONE (05:00)
[2023-01-13] MEDS ORDERED: normal saline 1000ML IV soln IVB ONE ×2 (05:00→05:40)
[2023-01-13 05:33] LABS: ALANINE AMINOTRANSFERASE 47 U/L (12-78); ALBUMIN 5.1 G/DL (3.4-5.0); ALBUMIN/GLOBULIN RATIO 1.4 (1.1-1.5); ALKALINE PHOSPHATASE 91 IU/L (46-116); ANION GAP 22 (8-16); ASPARTATE AMINO TRANSFERASE 44 U/L (10-37); BILIRUBIN,TOTAL 1.2 MG/DL (0.1-1.0); BLOOD UREA NITROGEN 39 MG/DL (7-18); BUN/CREATININE RATIO 17.6 (10.0-20.0); CHLORIDE 94 MMOL/L (99-107); CREATININE 2.21 MG/DL (0.60-1.10); GLUCOSE 113 MG/DL (70-104); LIPASE < 50 U/L (73-393); MAGNESIUM 1.8 MG/DL (1.5-2.4); SODIUM 138 MMOL/L (135-145); TOTAL CARBON DIOXIDE 22.5 MMOL/L (24-32); TOTAL PROTEIN 8.7 G/DL (6.4-8.2); eCRCL 51 ML/MIN; eGFR 37 ML/MIN
[2023-01-13 05:37] LABS: BASOPHILS # (AUTO) 0.1 X10'3 (0-0.2); BASOPHILS % (AUTO) 0.4 % (0-1); EOSINOPHILS # (AUTO) 0.1 X10'3 (0-0.9); EOSINOPHILS % (AUTO) 0.4 % (0-6); HEMATOCRIT 44.6 % (42.0-52.0); HEMOGLOBIN 15.3 g/dl (14.0-17.9); LYMPHOCYTES # (AUTO) 3.7 X10'3 (1.1-4.8); LYMPHOCYTES % (AUTO) 23.2 % (21-51); MEAN CORPUSCULAR HEMOGLOBIN 29.4 PG (27.0-31.0); MEAN CORPUSCULAR HGB CONC 34.3 g/dL (33.0-36.5); MEAN CORPUSCULAR VOLUME 85.6 FL (78-98); MEAN PLATELET VOLUME 8.6 FL (7.4-10.4); MONOCYTES # (AUTO) 1.7 X10'3 (0-0.9); MONOCYTES % (AUTO) 10.7 % (2-12); NEUTROPHILS # (AUTO) 10.4 X10'3 (1.8-7.7); NEUTROPHILS % (AUTO) 65.3 % (42-75); PLATELET COUNT 283 X10'3 (140-440); RED BLOOD COUNT 5.22 X10'6 (4.70-6.10)
[2023-01-13 05:43] LABS: POTASSIUM 2.9 MMOL/L (3.5-5.1)
[2023-01-13] MEDS ORDERED: POTASSIUM BICARB 20meq eff tab 20 MEQ TABLET.EFF PO ONE ×2 (05:50→13:00)
[2023-01-13] MEDS: potassium Cl 40MEQ/1/2NS 520ml 520 ML IV SCH ×2 (06:21→12:00)
[2023-01-13] MEDS ORDERED: POTASSIUM BICARBONATE/CIT AC 10 MEQ TABLET.EFF PO ONE (13:00)
[2023-01-13 16:46] LABS: ALBUMIN 3.9 G/DL (3.4-5.0); ANION GAP 11 (8-16); BLOOD UREA NITROGEN 25 MG/DL (7-18); BUN/CREATININE RATIO 26.3 (10.0-20.0); CALCIUM 8.6 MG/DL (8.5-10.1); CHLORIDE 102 MMOL/L (99-107); CREATININE 0.95 MG/DL (0.60-1.10); GLUCOSE 114 MG/DL (70-104); POTASSIUM 3.6 MMOL/L (3.5-5.1); SODIUM 138 MMOL/L (135-145); TOTAL CARBON DIOXIDE 25.1 MMOL/L (24-32); eCRCL 118 ML/MIN; eGFR > 90 ML/MIN
[2023-01-13] MEDS ORDERED: PROC5TAB56 PO (17:56)
[2023-01-13 18:15] VITALS: BP 126/74; PULSE 103; RESP 18; O2SAT 99
== END 2023-01-13 19:07 | disposition home or self-care (01) ==
LOC: ER 04:44
DX: R11.15 Cyclical vomiting syndrome unrelated to migraine (principal)
CPT/HCPCS: 36415; 80048; 80053; 83690; 83735; 85025; 96361; 96372; 96374; 96375; 96376; 99285; J0780; J1200; J1630; J2405; J2765; J3480; J7030

== ENCOUNTER 2023-02-23 08:18 | Inpatient (IN) | payer MEDICAID ==
[~2023-02-23] VITALS: Ht 188 cm; Wt 72.7 kg
[~2023-02-23 08:18] MED LIST changes: +PROC5TAB56 PO
[2023-02-23] MEDS ORDERED: normal saline 1000ML IV soln IVB ONE ×2 (08:50→16:10)
[2023-02-23] MEDS ORDERED: pantoprazole 40 MG vial IV ONE (08:50)
[2023-02-23 08:53] LABS: BASOPHILS % (AUTO) 0.2 % (0-1); EOSINOPHILS % (AUTO) 0 % (0-6); HEMATOCRIT 40.4 % (42.0-52.0); LYMPHOCYTES % (AUTO) 6.7 % (21-51); MEAN CORPUSCULAR HGB CONC 34.7 g/dL (33.0-36.5); MEAN CORPUSCULAR VOLUME 86.5 FL (78-98); MEAN PLATELET VOLUME 8.7 FL (7.4-10.4); MONOCYTES # (AUTO) 0.7 X10'3 (0-0.9); MONOCYTES % (AUTO) 4.2 % (2-12); NEUTROPHILS # (AUTO) 13.8 X10'3 (1.8-7.7); NEUTROPHILS % (AUTO) 88.9 % (42-75); PLATELET COUNT 233 X10'3 (140-440); RED BLOOD COUNT 4.68 X10'6 (4.70-6.10); RED CELL DISTRIBUTION WIDTH 12.5 % (11.5-14.5); WHITE BLOOD COUNT 15.5 X10'3 (4.5-11.0)
[2023-02-23] MEDS ORDERED: pantoprazole 40MG/NS 100ML BAG 100 ML IV ONE (09:05)
[2023-02-23] MEDS ORDERED: LORazepam 2 mg/ml vial IV ONE ×4 (09:15→14:25)
[2023-02-23 09:17] LABS: ALANINE AMINOTRANSFERASE 36 U/L (12-78); ALBUMIN 5.3 G/DL (3.4-5.0); ALBUMIN/GLOBULIN RATIO 1.5 (1.1-1.5); ALKALINE PHOSPHATASE 82 IU/L (46-116); ANION GAP 19 (8-16); ASPARTATE AMINO TRANSFERASE 30 U/L (10-37); BILIRUBIN,TOTAL 1.1 MG/DL (0.1-1.0); BLOOD UREA NITROGEN 26 MG/DL (7-18); CALCIUM 10.6 MG/DL (8.5-10.1); CHLORIDE 101 MMOL/L (99-107); CREATININE 1.53 MG/DL (0.60-1.10); GLUCOSE 173 MG/DL (70-104); POTASSIUM 3.8 MMOL/L (3.5-5.1); SODIUM 140 MMOL/L (135-145); TOTAL CARBON DIOXIDE 19.9 MMOL/L (24-32); TOTAL PROTEIN 8.9 G/DL (6.4-8.2); eCRCL 78 ML/MIN; eGFR 57 ML/MIN
[2023-02-23 09:27] LABS: LIPASE 22 U/L (16-77)
[2023-02-23] MEDS ORDERED: levetiracetam inj 1,000 MG in normal saline 100ml IV soln 100 ML IV ONE (10:00)
[2023-02-23] MEDS ORDERED: QUET50TA24 PO (12:57)
[2023-02-23] MEDS ORDERED: LEVE750T66 PO (12:57)
[2023-02-23] MEDS ORDERED: DIVA500T40 PO (12:57)
[2023-02-23] MEDS ORDERED: LUMA42CA PO (12:57)
[2023-02-23] MEDS ORDERED: LEVE750T PO (12:59)
[2023-02-23] MEDS ORDERED: magnesium 4gm in 100ml NS 100 ML IV PRN (13:40)
[2023-02-23] MEDS ORDERED: bisacodyl 10mg suppository rectal RC PRN (13:40)
[2023-02-23] MEDS ORDERED: acetaminophen 325mg tablet PO PRN (13:40)
[2023-02-23] MEDS ORDERED: morphine 2 MG/ML inj. syringe IV PRN ×2 (13:40)
[2023-02-23] MEDS ORDERED: mag hydrox/Alum hydrox/simeth 30ml oral suspension PO PRN (13:40)
[2023-02-23] MEDS ORDERED: magnesium 2GM in 50ml NS 50 ML IV PRN (13:40)
[2023-02-23] MEDS ORDERED: ondansetron/PF 4mg/2ml inj IV PRN ×2 (13:40→18:35)
[2023-02-23] MEDS ORDERED: potassium Cl 40MEQ/1/2NS 520ml 520 ML IV PRN (13:40)
[2023-02-23] MEDS: normal saline 1000ml 1,000 ML IV SCH ×2 (14:14→20:25)
[2023-02-23 15:28] LABS: HEMOGLOBIN A1C 5.2 % (4.5-6.2)
[2023-02-23] MEDS: nicotine 14mg patch - 24hr TD SCH (18:12)
[2023-02-23] MEDS: K and/or MAG REPLACEMENT MC SCH (20:00)
[2023-02-23] MEDS ORDERED: docusate sod 100mg capsule PO SCH (20:00)
[2023-02-23 20:19] LABS: BILIRUBIN,URINE NEGATIVE (Neg); CLARITY,URINE SLIGHTLY CLOUDY (Clear); COLOR,URINE YELLOW (Yellow); GLUCOSE, URINE NEGATIVE (Neg); KETONES,URINE NEGATIVE (Neg); LEUKOCYTE ESTERASE ,URINE NEGATIVE (Neg); NITRITES, URINE NEGATIVE (Neg); OCCULT BLOOD,URINE NEGATIVE (Neg); PROTEIN,URINE NEGATIVE (Neg); UROBILINOGEN,URINE 0.2 E.U/dL (0.2-1.0)
[2023-02-23 20:22] LABS: UA COLLECTION TYPE VOIDED
[2023-02-23 20:26] LABS: BACTERIA,URINE FEW /HPF (Neg); MUCUS STRANDS NONE SEEN /LPF (Neg); RBC,URINE 0-2 /HPF (0-2); SQUAMOUS EPITHELIAL CELL,UR FEW /LPF (FEW); WBC,URINE 0-4 /HPF (0-4)
[2023-02-23 20:27] LABS: TRANSITIONAL EPI CELLS,URINE FEW /HPF
[2023-02-23 20:29] LABS: URINE AMPHETAMINE SCREEN NEGATIVE (Neg); URINE BARBITUATE SCREEN NEGATIVE (Neg); URINE BENZODIAZEPINES SCREEN NEGATIVE (Neg); URINE CANNABINOID SCREEN POSITIVE (Neg); URINE COCAINE SCREEN NEGATIVE (Neg); URINE OPIATE SCREEN POSITIVE (Neg); URINE PHENCYCLIDINE SCREEN NEGATIVE (Neg)
[2023-02-23 20:30] VITALS: BP 107/46; PULSE 68; RESP 15; TEMP 98.7; O2SAT 100
[2023-02-23 20:40] VITALS: RESP 16
[2023-02-23] MEDS: pantoprazole 40mg IV 40 MG in normal saline 100ml IV soln 100 ML IV SCH (22:09)
[2023-02-24] VITALS (12 sets, daily range): BP systolic 98–157; BP diastolic 44–97; PULSE 74–137; RESP 14–23; TEMP 97.3–100.7; O2SAT 95–100
[2023-02-24] MEDS ORDERED: magnesium hydroxide 30ml (MOM) UD suspension PO PRN (00:15)
[2023-02-24] MEDS: K and/or MAG REPLACEMENT MC SCH ×2 (06:57→20:00)
[2023-02-24 07:17] LABS: BASOPHILS # (AUTO) 0.1 X10'3 (0-0.2); BASOPHILS % (AUTO) 0.6 % (0-1); EOSINOPHILS # (AUTO) 0.1 X10'3 (0-0.9); EOSINOPHILS % (AUTO) 0.7 % (0-6); HEMATOCRIT 35.6 % (42.0-52.0); HEMOGLOBIN 12.5 g/dl (14.0-17.9); LYMPHOCYTES # (AUTO) 2.1 X10'3 (1.1-4.8); LYMPHOCYTES % (AUTO) 22.6 % (21-51); MEAN CORPUSCULAR HEMOGLOBIN 30.5 PG (27.0-31.0); MEAN PLATELET VOLUME 8.6 FL (7.4-10.4); MONOCYTES # (AUTO) 0.8 X10'3 (0-0.9); MONOCYTES % (AUTO) 8.5 % (2-12); NEUTROPHILS # (AUTO) 6.2 X10'3 (1.8-7.7); NEUTROPHILS % (AUTO) 67.6 % (42-75); PLATELET COUNT 161 X10'3 (140-440); RED BLOOD COUNT 4.09 X10'6 (4.70-6.10); RED CELL DISTRIBUTION WIDTH 12.8 % (11.5-14.5); WHITE BLOOD COUNT 9.2 X10'3 (4.5-11.0)
[2023-02-24 07:32] LABS: ALANINE AMINOTRANSFERASE 32 U/L (12-78); ALBUMIN 3.7 G/DL (3.4-5.0); ALBUMIN/GLOBULIN RATIO 1.3 (1.1-1.5); ALKALINE PHOSPHATASE 60 IU/L (46-116); ANION GAP 10 (8-16); ASPARTATE AMINO TRANSFERASE 32 U/L (10-37); BILIRUBIN,TOTAL 0.9 MG/DL (0.1-1.0); BLOOD UREA NITROGEN 13 MG/DL (7-18); BUN/CREATININE RATIO 15.7 (10.0-20.0); CALCIUM 8.6 MG/DL (8.5-10.1); CHLORIDE 107 MMOL/L (99-107); CREATININE 0.83 MG/DL (0.60-1.10); GLUCOSE 94 MG/DL (70-104); PHOSPHORUS 2.5 MG/DL (2.3-4.5); POTASSIUM 3.3 MMOL/L (3.5-5.1); SODIUM 140 MMOL/L (135-145); TOTAL CARBON DIOXIDE 23.4 MMOL/L (24-32); TOTAL PROTEIN 6.5 G/DL (6.4-8.2); eCRCL 144 ML/MIN; eGFR > 90 ML/MIN
[2023-02-24] MEDS: pantoprazole 40mg IV 40 MG in normal saline 100ml IV soln 100 ML IV SCH ×2 (07:50→19:37)
[2023-02-24] MEDS: nicotine 14mg patch - 24hr TD SCH (07:51)
[2023-02-24] MEDS: normal saline 1000ml 1,000 ML IV SCH ×2 (08:01→19:43)
[2023-02-24] MEDS ORDERED: PANT-47 PO (12:08)
[2023-02-24] MEDS ORDERED: LORazepam 2 mg/ml vial IV ONE ×4 (13:05→13:30)
[2023-02-24] MEDS ORDERED: levetiracetam inj 1,000 MG in normal saline 100ml IV soln 100 ML IV ONE (13:10)
[2023-02-24] MEDS ORDERED: LORazepam 2 mg/ml vial ONE (13:30)
[2023-02-24] MEDS: LORazepam 2 mg/ml vial IV PRN ×4 (13:52→23:44)
[2023-02-24] MEDS ORDERED: metoclopramide 5 mg/ml inj IV PRN (14:30)
[2023-02-24] MEDS ORDERED: levetiracetam inj 500 MG in normal saline 100ml IV soln 100 ML IV ONE (16:45)
[2023-02-24] MEDS ORDERED: levetiracetam inj 1,500 MG in normal saline 100ml IV soln 85 ML IV SCH (21:00)
[2023-02-24] MEDS ORDERED: levetiracetam 250mg tablet PO SCH (21:00)
[2023-02-25] MEDS: normal saline 1000ml 1,000 ML IV SCH (05:40)
[2023-02-25] MEDS: pantoprazole 40mg IV 40 MG in normal saline 100ml IV soln 100 ML IV SCH (07:41)
[2023-02-25] MEDS: nicotine 14mg patch - 24hr TD SCH (07:47)
[2023-02-25] MEDS: K and/or MAG REPLACEMENT MC SCH (08:00)
[2023-02-25 08:39] VITALS: RESP 16; O2SAT 98
[2023-02-25 08:50] LABS: BASOPHILS % (AUTO) 0.3 % (0-1); EOSINOPHILS % (AUTO) 0.3 % (0-6); HEMOGLOBIN 12.1 g/dl (14.0-17.9); LYMPHOCYTES # (AUTO) 2.3 X10'3 (1.1-4.8); LYMPHOCYTES % (AUTO) 20.7 % (21-51); MEAN CORPUSCULAR HEMOGLOBIN 29.6 PG (27.0-31.0); MEAN CORPUSCULAR HGB CONC 33.5 g/dL (33.0-36.5); MEAN CORPUSCULAR VOLUME 88.1 FL (78-98); MEAN PLATELET VOLUME 8.8 FL (7.4-10.4); MONOCYTES # (AUTO) 0.9 X10'3 (0-0.9); MONOCYTES % (AUTO) 7.7 % (2-12); PLATELET COUNT 169 X10'3 (140-440); RED BLOOD COUNT 4.09 X10'6 (4.70-6.10); RED CELL DISTRIBUTION WIDTH 12.5 % (11.5-14.5); WHITE BLOOD COUNT 11.3 X10'3 (4.5-11.0)
[2023-02-25 09:10] LABS: ALANINE AMINOTRANSFERASE 32 U/L (12-78); ALBUMIN 3.5 G/DL (3.4-5.0); ALBUMIN/GLOBULIN RATIO 1.2 (1.1-1.5); ALKALINE PHOSPHATASE 59 IU/L (46-116); ANION GAP 9 (8-16); ASPARTATE AMINO TRANSFERASE 27 U/L (10-37); BILIRUBIN,TOTAL 0.9 MG/DL (0.1-1.0); BLOOD UREA NITROGEN 12 MG/DL (7-18); BUN/CREATININE RATIO 14.8 (10.0-20.0); CALCIUM 8.5 MG/DL (8.5-10.1); CHLORIDE 107 MMOL/L (99-107); CREATININE 0.81 MG/DL (0.60-1.10); GLUCOSE 82 MG/DL (70-104); MAGNESIUM 2.2 MG/DL (1.5-2.4); PHOSPHORUS 2.5 MG/DL (2.3-4.5); POTASSIUM 3.6 MMOL/L (3.5-5.1); SODIUM 140 MMOL/L (135-145); TOTAL CARBON DIOXIDE 23.7 MMOL/L (24-32); TOTAL PROTEIN 6.4 G/DL (6.4-8.2); eCRCL 147 ML/MIN; eGFR > 90 ML/MIN
[2023-02-25 10:00] VITALS: BP 99/53; PULSE 80; RESP 16; TEMP 97.2; O2SAT 98
[2023-02-25] MEDS ORDERED: ONDA4TAB12 PO (13:05)
[2023-02-25] MEDS ORDERED: LEVE750T PO (13:05)
[2023-02-25 13:15] VITALS: RESP 16; O2SAT 100
[2023-02-25 17:26] LABS: HBSAG SCREEN Negative (Negative); HEP B CORE AB, IGM Negative (Negative); HEP B CORE AB, TOT Negative (Negative)
[2023-02-25] MEDS ORDERED: levetiracetam inj 1,500 MG in normal saline 100ml IV soln 100 ML IV SCH (21:00)
== END 2023-02-25 13:25 | disposition home or self-care (01) | DRG 241 ==
LOC: ER 08:18 → ED HOLD 14:47 → ORTHO 4S 19:13
PROVIDERS: ADMIT Internal Medicine; ATTEND Internal Medicine
DX: K29.00 Acute gastritis without bleeding (principal); N17.9 Acute kidney failure, unspecified; R56.9 Unspecified convulsions; F17.210 Nicotine dependence, cigarettes, uncomplicated; F41.9 Anxiety disorder, unspecified
CPT/HCPCS: 36415; 71045; 80053; 80305; 81001; 83036; 83690; 83735; 84100; 85025; 86704; 86705; 87081; 87340; 96365; 96375; 99285; A6258; C9113; G0378; J1953; J2060; J2270; J2405; J2765; J3480; J3490; J7030

== ENCOUNTER 2023-03-02 06:17 | Emergency (ER) | payer MEDICAID ==
[~2023-03-02] VITALS: Ht 188 cm; Wt 77.7 kg
[~2023-03-02 06:17] MED LIST changes: -ARIP15TA19 PO; +PANT-47 PO; -PROC5TAB56 PO; -QUET50TA PO; +QUET50TA24 PO
[2023-03-02 06:20] VITALS: TEMP 97.8
[2023-03-02] MEDS ORDERED: LORazepam 2 mg/ml vial ONE ×2 (06:29)
[2023-03-02] MEDS ORDERED: ondansetron/PF 4mg/2ml inj IV ONE (06:35)
[2023-03-02] MEDS ORDERED: pantoprazole 40 MG vial IV ONE (06:35)
[2023-03-02] MEDS ORDERED: normal saline 1000ML IV soln IVB ONE (06:35)
--- NOTE | 2023-03-02 06:35 | NUR ---
PT TAKEN TO ROOM WITH TECH AND RN VIA WHEELCHAIR. PT BEGAN HAVING A SEIZURE SOON WE PLACED HIM IN THE BED. AT BEDSIDE AND ORDERED 4MG OF ATIVAN IM.
[2023-03-02] MEDS ORDERED: LORazepam 2 mg/ml vial IV ONE (06:40)
[2023-03-02] MEDS ORDERED: pantoprazole 40MG/NS 100ML BAG 100 ML IV ONE (06:40)
[2023-03-02] MEDS ORDERED: levetiracetam inj 1,000 MG in normal saline 100ml IV soln 100 ML IV ONE (06:40)
[2023-03-02] MEDS ORDERED: LORazepam 2 mg/ml vial IM ONE (06:40)
[2023-03-02] MEDS ORDERED: morphine 4 MG/ML inj SYRINge IV ONE (06:55)
[2023-03-02 06:57] LABS: BASOPHILS % (AUTO) 0.4 % (0-1); EOSINOPHILS # (AUTO) 0.1 X10'3 (0-0.9); EOSINOPHILS % (AUTO) 1.2 % (0-6); HEMATOCRIT 39.2 % (42.0-52.0); HEMOGLOBIN 13.4 g/dl (14.0-17.9); LYMPHOCYTES # (AUTO) 2.9 X10'3 (1.1-4.8); LYMPHOCYTES % (AUTO) 26.3 % (21-51); MEAN CORPUSCULAR HGB CONC 34.1 g/dL (33.0-36.5); MEAN CORPUSCULAR VOLUME 87.9 FL (78-98); MEAN PLATELET VOLUME 8.1 FL (7.4-10.4); MONOCYTES % (AUTO) 8.7 % (2-12); NEUTROPHILS # (AUTO) 7.1 X10'3 (1.8-7.7); NEUTROPHILS % (AUTO) 63.4 % (42-75); PLATELET COUNT 240 X10'3 (140-440); RED BLOOD COUNT 4.46 X10'6 (4.70-6.10); RED CELL DISTRIBUTION WIDTH 12.8 % (11.5-14.5); WHITE BLOOD COUNT 11.1 X10'3 (4.5-11.0)
[2023-03-02 07:08] LABS: ALANINE AMINOTRANSFERASE 33 U/L (12-78); ALBUMIN 4.3 G/DL (3.4-5.0); ALBUMIN/GLOBULIN RATIO 1.3 (1.1-1.5); ALKALINE PHOSPHATASE 81 IU/L (46-116); ANION GAP 13 (8-16); ASPARTATE AMINO TRANSFERASE 23 U/L (10-37); BILIRUBIN,TOTAL 0.3 MG/DL (0.1-1.0); BLOOD UREA NITROGEN 19 MG/DL (7-18); BUN/CREATININE RATIO 19.2 (10.0-20.0); CHLORIDE 101 MMOL/L (99-107); CREATININE 0.99 MG/DL (0.60-1.10); GLUCOSE 101 MG/DL (70-104); POTASSIUM 3.4 MMOL/L (3.5-5.1); SODIUM 141 MMOL/L (135-145); TOTAL PROTEIN 7.7 G/DL (6.4-8.2); eCRCL 129 ML/MIN; eGFR > 90 ML/MIN
[2023-03-02 07:15] LABS: MAGNESIUM 1.9 MG/DL (1.5-2.4); PRO BRAIN NATRIURETIC PEPTIDE 47 PG/ML (0-125)
[2023-03-02 07:24] LABS: ETHANOL < 10 MG/DL (<10)
--- NOTE | 2023-03-02 07:34 | NUR ---
pt thrashing about in bed displaying jerking type movements similar to seizure like activity. pt is sliding down in bed with movements. entered room and asked pt to assist me in getting him repositioned on the gurney. mid movements pt is able to bend knees and use feet to push himself up on the gurney. pt then states, "this is the only way I can deal with the stomach pain, it distracts me and makes it better" - pt stopped thrashing about and was given a blanket and reassured.
[2023-03-02] MEDS ORDERED: metoclopramide 5 mg/ml inj IV ONE (07:35)
--- NOTE | 2023-03-02 07:45 | NUR ---
PT JERKING IN BED. SPOKE WITH PT THAT HE SHOULD STOP AND CATCH HIS BREATH AND HE DID STOP. ASKED THE PT WHY HE WAS DOING THIS, AND HE STATED THAT IT TAKES HIS MIND OF HIS ABD PAIN. TOLD PT TO MAKE SURE HE DIDN'T SLIDE OFF THE BED, AND HE AGREED TO BE CAREFUL AND HE REPOSITIONED HIMSELF TO THE TOP OF THE BED. PT STATED THAT IT'S NOT SZ's, BUT THAT HE DOES IT DELIBERATLY TO HELP WITH THE PAIN. ADVISED.
[2023-03-02] MEDS ORDERED: haloperidol lactate 5mg/ml inj IM ONE (09:05)
[2023-03-02] MEDS ORDERED: diphenhydrAMINE 50 mg/ml inj IV ONE (09:05)
[2023-03-02 09:28] LABS: BILIRUBIN,URINE NEGATIVE (Neg); CLARITY,URINE CLEAR (Clear); COLOR,URINE YELLOW (Yellow); GLUCOSE, URINE NEGATIVE (Neg); KETONES,URINE NEGATIVE (Neg); LEUKOCYTE ESTERASE ,URINE NEGATIVE (Neg); NITRITES, URINE NEGATIVE (Neg); OCCULT BLOOD,URINE NEGATIVE (Neg); PROTEIN,URINE NEGATIVE (Neg); UROBILINOGEN,URINE 0.2 E.U/dL (0.2-1.0)
[2023-03-02 09:43] LABS: UA COLLECTION TYPE VOIDED
[2023-03-02 09:46] LABS: APTT 27 SECONDS (22-32); PROTHROMBIN TIME 10.3 SECONDS (9.0-12.0)
[2023-03-02 10:49] VITALS: BP 111/57; PULSE 78; RESP 16; O2SAT 96
--- NOTE | 2023-03-02 10:49 | NUR ---
PT SLEEPING, EVEN RESPS.
[2023-03-02 11:08] LABS: URINE AMPHETAMINE SCREEN NEGATIVE (Neg); URINE BARBITUATE SCREEN NEGATIVE (Neg); URINE BENZODIAZEPINES SCREEN NEGATIVE (Neg); URINE CANNABINOID SCREEN POSITIVE (Neg); URINE COCAINE SCREEN NEGATIVE (Neg); URINE METHADONE SCREEN NEGATIVE (Neg); URINE OPIATE SCREEN POSITIVE (Neg); URINE PHENCYCLIDINE SCREEN NEGATIVE (Neg)
--- NOTE | 2023-03-02 12:14 | NUR ---
PT SLEEPING, REPOSITIONS FOR COMFORT.
--- NOTE | 2023-03-02 12:14 | NUR ---
PT RESTING QUIETLY, REPOSITIONS FOR COMFORT.
== END 2023-03-02 18:18 | disposition home or self-care (01) ==
LOC: ER 06:18
DX: F31.9 Bipolar disorder, unspecified (principal); F12.90 Cannabis use, unspecified, uncomplicated; R11.10 Vomiting, unspecified; G40.909 Epilepsy, unspecified, not intractable, without status epilepticus; R79.1 Abnormal coagulation profile; Z91.09 Other allergy status, other than to drugs and biological substances; Z79.899 Other long term (current) drug therapy
CPT/HCPCS: 36415; 71045; 80053; 80305; 80320; 81003; 83735; 83880; 84100; 84484; 85025; 85610; 85730; 93005; 96365; 96366; 96372; 96375; 99285; C9113; J1200; J1630; J2060; J2270; J2405; J2765; J7030

== ENCOUNTER 2023-04-16 18:56 | Emergency (ER) | payer MEDICAID ==
[~2023-04-16] VITALS: Ht 180.3 cm; Wt 75.0 kg
[2023-04-16] MEDS ORDERED: normal saline 1000ML IV soln IVB ONE (19:20)
[2023-04-16] MEDS ORDERED: diphenhydrAMINE 50 mg/ml inj IV ONE (19:25)
[2023-04-16] MEDS ORDERED: proCHLORperazine 10 MG/2 ml inj IV ONE (19:25)
[2023-04-16] MEDS ORDERED: chlorproMAZINE 25mg/ml inj. IM ONE (19:35)
[2023-04-16 20:15] LABS: ALANINE AMINOTRANSFERASE 40 U/L (12-78); ALBUMIN 4.7 G/DL (3.4-5.0); ALBUMIN/GLOBULIN RATIO 1.6 (1.1-1.5); ALKALINE PHOSPHATASE 74 IU/L (46-116); ANION GAP 15 (8-16); ASPARTATE AMINO TRANSFERASE 37 U/L (10-37); BILIRUBIN,TOTAL 0.6 MG/DL (0.1-1.0); BLOOD UREA NITROGEN 21 MG/DL (7-18); BUN/CREATININE RATIO 20.2 (10.0-20.0); CALCIUM 9.6 MG/DL (8.5-10.1); CHLORIDE 104 MMOL/L (99-107); CREATININE 1.04 MG/DL (0.60-1.10); GLUCOSE 114 MG/DL (70-104); LIPASE 28 U/L (16-77); SODIUM 142 MMOL/L (135-145); TOTAL CARBON DIOXIDE 22.8 MMOL/L (24-32); TOTAL PROTEIN 7.6 G/DL (6.4-8.2); eCRCL 118 ML/MIN; eGFR 89 ML/MIN
[2023-04-16 20:27] LABS: BASOPHILS # (AUTO) 0.1 X10'3 (0-0.2); BASOPHILS % (AUTO) 0.7 % (0-1); EOSINOPHILS # (AUTO) 0.1 X10'3 (0-0.9); EOSINOPHILS % (AUTO) 0.8 % (0-6); HEMATOCRIT 40.3 % (42.0-52.0); HEMOGLOBIN 13.5 g/dl (14.0-17.9); LYMPHOCYTES # (AUTO) 1.6 X10'3 (1.1-4.8); LYMPHOCYTES % (AUTO) 11.8 % (21-51); MEAN CORPUSCULAR HEMOGLOBIN 29.8 PG (27.0-31.0); MEAN CORPUSCULAR HGB CONC 33.5 g/dL (33.0-36.5); MEAN CORPUSCULAR VOLUME 88.9 FL (78-98); MEAN PLATELET VOLUME 8.9 FL (7.4-10.4); MONOCYTES # (AUTO) 0.5 X10'3 (0-0.9); MONOCYTES % (AUTO) 3.5 % (2-12); NEUTROPHILS # (AUTO) 11.5 X10'3 (1.8-7.7); NEUTROPHILS % (AUTO) 83.2 % (42-75); PLATELET COUNT 213 X10'3 (140-440); RED BLOOD COUNT 4.54 X10'6 (4.70-6.10); RED CELL DISTRIBUTION WIDTH 12.6 % (11.5-14.5); WHITE BLOOD COUNT 13.8 X10'3 (4.5-11.0)
[2023-04-16] MEDS ORDERED: potassium CL 10mEq/100ml bag 100 ML IV SCH ×2 (20:45)
[2023-04-16 21:22] LABS: PLATELET ESTIMATE NORMAL; TOTAL CELLS COUNTED 100
[2023-04-16 23:36] VITALS: BP 148/76; PULSE 69; RESP 16; TEMP 97.8; O2SAT 98
== END 2023-04-17 00:15 | disposition home or self-care (01) ==
LOC: ER 18:57
DX: R56.9 Unspecified convulsions (principal); R10.13 Epigastric pain; R11.2 Nausea with vomiting, unspecified; E87.6 Hypokalemia; F12.90 Cannabis use, unspecified, uncomplicated; Z72.89 Other problems related to lifestyle; Z79.899 Other long term (current) drug therapy; Z91.048 Other nonmedicinal substance allergy status
CPT/HCPCS: 36415; 71045; 74018; 80053; 82948; 83690; 85007; 85025; 96361; 96365; 96372; 96375; 99285; J0780; J1200; J3230; J3480; J7030

== ENCOUNTER 2023-07-19 13:17 | Emergency (ER) | payer MEDICAID ==
[~2023-07-19] VITALS: Ht 188 cm; Wt 84.1 kg
[2023-07-19] MEDS ORDERED: haloperidol lactate 5mg/ml inj IM ONE (13:35)
[2023-07-19] MEDS: LORazepam 2 mg/ml vial IV ONE ×2 (13:47→14:06)
[2023-07-19] MEDS: diphenhydrAMINE 50 mg/ml inj IV STA (13:48)
[2023-07-19 13:54] LABS: BASOPHILS # (AUTO) 0.1 X10'3 (0-0.2); BASOPHILS % (AUTO) 0.5 % (0-1); EOSINOPHILS # (AUTO) 0.2 X10'3 (0-0.9); EOSINOPHILS % (AUTO) 1.2 % (0-6); HEMATOCRIT 42.1 % (42.0-52.0); HEMOGLOBIN 14.1 g/dl (14.0-17.9); LYMPHOCYTES # (AUTO) 4.1 X10'3 (1.1-4.8); LYMPHOCYTES % (AUTO) 26.3 % (21-51); MEAN CORPUSCULAR HEMOGLOBIN 29.5 PG (27.0-31.0); MEAN CORPUSCULAR HGB CONC 33.6 g/dL (33.0-36.5); MEAN CORPUSCULAR VOLUME 87.9 FL (78-98); MEAN PLATELET VOLUME 8.3 FL (7.4-10.4); MONOCYTES # (AUTO) 1.4 X10'3 (0-0.9); MONOCYTES % (AUTO) 8.9 % (2-12); NEUTROPHILS # (AUTO) 9.8 X10'3 (1.8-7.7); NEUTROPHILS % (AUTO) 63.1 % (42-75); PLATELET COUNT 282 X10'3 (140-440); RED BLOOD COUNT 4.79 X10'6 (4.70-6.10); RED CELL DISTRIBUTION WIDTH 12.9 % (11.5-14.5); WHITE BLOOD COUNT 15.5 X10'3 (4.5-11.0)
[2023-07-19 14:08] LABS: ALANINE AMINOTRANSFERASE 39 U/L (12-78); ALBUMIN 4.4 G/DL (3.4-5.0); ALBUMIN/GLOBULIN RATIO 1.1 (1.1-1.5); ALKALINE PHOSPHATASE 82 IU/L (46-116); ANION GAP 24 (8-16); ASPARTATE AMINO TRANSFERASE 36 U/L (10-37); BILIRUBIN,TOTAL 0.9 MG/DL (0.1-1.0); BLOOD UREA NITROGEN 25 MG/DL (7-18); BUN/CREATININE RATIO 19.1 (10.0-20.0); CALCIUM 9.7 MG/DL (8.5-10.1); CHLORIDE 101 MMOL/L (99-107); CREATININE 1.31 MG/DL (0.60-1.10); GLUCOSE 128 MG/DL (70-104); LIPASE 20 U/L (16-77); POTASSIUM 4.3 MMOL/L (3.5-5.1); SODIUM 143 MMOL/L (135-145); TOTAL CARBON DIOXIDE 17.9 MMOL/L (24-32); TOTAL PROTEIN 8.3 G/DL (6.4-8.2); eCRCL 102 ML/MIN; eGFR 68 ML/MIN
[2023-07-19] MEDS: haloperidol lactate 5mg/ml inj IM ONE (14:10)
[2023-07-19] MEDS: normal saline 1000ML IV soln IVB ONE (19:13)
[2023-07-19 20:00] VITALS: O2SAT 99
[2023-07-19 21:36] LABS: BILIRUBIN,URINE SMALL (Neg); CLARITY,URINE CLEAR (Clear); COLOR,URINE YELLOW (Yellow); GLUCOSE, URINE NEGATIVE (Neg); KETONES,URINE >=80 mg/dl (Neg); LEUKOCYTE ESTERASE ,URINE NEGATIVE (Neg); NITRITES, URINE NEGATIVE (Neg); OCCULT BLOOD,URINE NEGATIVE (Neg); PH,URINE 6.5 (4.8-8.0); PROTEIN,URINE TRACE mg/dl (Neg); UROBILINOGEN,URINE 0.2 E.U/dL (0.2-1.0)
[2023-07-19 21:47] LABS: UA COLLECTION TYPE VOIDED
[2023-07-19 21:49] LABS: MUCUS STRANDS MANY /LPF (Neg)
[2023-07-19 21:50] LABS: RBC,URINE 0-2 /HPF (0-2); SQUAMOUS EPITHELIAL CELL,UR FEW /LPF (FEW); TRANSITIONAL EPI CELLS,URINE FEW /HPF; WBC,URINE 0-4 /HPF (0-4)
[2023-07-19 21:54] LABS: AMORPHOUS PHOSPHATES 4+; BACTERIA,URINE FEW /HPF (Neg)
[2023-07-20] VITALS: BP 133/82; PULSE 77; RESP 16
== END 2023-07-20 01:53 | disposition home or self-care (01) ==
LOC: ER 13:18
DX: R56.9 Unspecified convulsions (principal); F31.9 Bipolar disorder, unspecified; F12.10 Cannabis abuse, uncomplicated; F15.10 Other stimulant abuse, uncomplicated; Z79.899 Other long term (current) drug therapy; Z79.1 Long term (current) use of non-steroidal anti-inflammatories (NSAID); Z79.2 Long term (current) use of antibiotics
CPT/HCPCS: 36415; 80053; 81001; 83690; 85025; 96361; 96372; 96374; 96375; 99285; J1200; J1630; J2060; J7030

== ENCOUNTER 2023-08-19 07:06 | Emergency (ER) | payer MEDICAID ==
[~2023-08-19] VITALS: Ht 188 cm; Wt 75.0 kg
[2023-08-19 08:11] VITALS: BP 141/79; PULSE 131; RESP 20; TEMP 99.1; O2SAT 98
[2023-08-19] MEDS: LORazepam 2 mg/ml vial ONE (08:47)
[2023-08-19] MEDS: LORazepam 2 mg/ml vial IV ONE (08:52)
[2023-08-19 09:18] LABS: BASOPHILS % (AUTO) 0.2 % (0-1); EOSINOPHILS % (AUTO) 0.1 % (0-6); HEMATOCRIT 38.4 % (42.0-52.0); HEMOGLOBIN 12.9 g/dl (14.0-17.9); LYMPHOCYTES % (AUTO) 6.5 % (21-51); MEAN CORPUSCULAR HEMOGLOBIN 29.9 PG (27.0-31.0); MEAN CORPUSCULAR HGB CONC 33.5 g/dL (33.0-36.5); MEAN PLATELET VOLUME 8.4 FL (7.4-10.4); MONOCYTES # (AUTO) 0.7 X10'3 (0-0.9); MONOCYTES % (AUTO) 4.8 % (2-12); NEUTROPHILS # (AUTO) 13.3 X10'3 (1.8-7.7); NEUTROPHILS % (AUTO) 88.4 % (42-75); PLATELET COUNT 198 X10'3 (140-440); RED BLOOD COUNT 4.31 X10'6 (4.70-6.10); RED CELL DISTRIBUTION WIDTH 13.2 % (11.5-14.5)
[2023-08-19 09:33] LABS: ANION GAP 16 (8-16); BLOOD UREA NITROGEN 18 MG/DL (7-18); CALCIUM 8.8 MG/DL (8.5-10.1); CHLORIDE 109 MMOL/L (99-107); CREATINE KINASE 288 U/L (39-308); GLUCOSE 162 MG/DL (70-104); POTASSIUM 3.2 MMOL/L (3.5-5.1); SODIUM 145 MMOL/L (135-145); TOTAL CARBON DIOXIDE 19.8 MMOL/L (24-32); eCRCL 102 ML/MIN; eGFR 75 ML/MIN
[2023-08-19] MEDS: diphenhydrAMINE 50 mg/ml inj IV ONE (09:35)
[2023-08-19] MEDS: haloperidol lactate 5mg/ml inj IVH STA (09:46)
[2023-08-19] MEDS: ringers solution, lacted 1,000 ML IV ONE (10:15)
[2023-08-19] MEDS: magnesium 2GM in 50ml NS 50 ML IV ONE (10:15)
[2023-08-19] MEDS: POTASSIUM BICARB 20meq eff tab 20 MEQ TABLET.EFF PO ONE (13:07)
== END 2023-08-19 13:46 | disposition home or self-care (01) ==
LOC: ER 07:08
DX: R11.2 Nausea with vomiting, unspecified (principal); E87.6 Hypokalemia; F10.90 Alcohol use, unspecified, uncomplicated; F12.90 Cannabis use, unspecified, uncomplicated; F15.90 Other stimulant use, unspecified, uncomplicated
CPT/HCPCS: 36415; 80048; 82550; 85025; 93005; 96365; 96366; 96375; 99284; J1200; J1630; J2060; J3475; J7120; A4615; A6258

== ENCOUNTER 2023-09-28 11:28 | Emergency (ER) | payer MEDICAID ==
[~2023-09-28] VITALS: Ht 175.3 cm; Wt 72.7 kg
[2023-09-28 11:56] VITALS: RESP 18; TEMP 97.8
[2023-09-28] MEDS: haloperidol lactate 5mg/ml inj IM ONE (12:13)
[2023-09-28 13:16] VITALS: BP 137/75; PULSE 64; O2SAT 98
== END 2023-09-28 14:28 | disposition home or self-care (01) ==
LOC: ER 11:30
DX: R56.9 Unspecified convulsions (principal); R11.2 Nausea with vomiting, unspecified; F12.90 Cannabis use, unspecified, uncomplicated; F15.90 Other stimulant use, unspecified, uncomplicated; Z72.89 Other problems related to lifestyle; Z88.8 Allergy status to other drugs, medicaments and biological substances; Z79.899 Other long term (current) drug therapy
CPT/HCPCS: 96372; 99283; J1630

== ENCOUNTER 2023-10-18 12:34 | Emergency (ER) | payer MEDICAID ==
[~2023-10-18] VITALS: Ht 188 cm; Wt 59.1 kg
[2023-10-18 13:49] VITALS: BP 145/92; PULSE 80; TEMP 97.2; O2SAT 100
[2023-10-18] MEDS: diphenhydrAMINE 50 mg/ml inj IM ONE (14:25)
[2023-10-18] MEDS: haloperidol lactate 5mg/ml inj IM ONE (14:26)
[2023-10-18 14:48] VITALS: RESP 18
== END 2023-10-18 15:35 | disposition home or self-care (01) ==
LOC: ER 12:35
DX: F44.89 Other dissociative and conversion disorders (principal); F20.9 Schizophrenia, unspecified; F10.90 Alcohol use, unspecified, uncomplicated; F15.90 Other stimulant use, unspecified, uncomplicated; F12.90 Cannabis use, unspecified, uncomplicated; Z91.048 Other nonmedicinal substance allergy status; Z79.899 Other long term (current) drug therapy
CPT/HCPCS: 96372; 99284; J1200; J1630

== ENCOUNTER 2023-12-03 08:41 | Outpatient (CLI) | payer MEDICAID ==
[~2023-12-03 08:41] MED LIST changes: +ONDA-243 PO; -ONDA4TAB12 PO
== END 2023-12-03 23:59 | disposition home or self-care (01) ==
LOC: RAD 08:41
PROVIDERS: ATTEND Nurse Practitioner Family
DX: R56.9 Unspecified convulsions (principal)
CPT/HCPCS: 95816

== ENCOUNTER 2024-03-04 11:02 | Emergency (ER) | payer MEDICAID ==
[~2024-03-04] VITALS: Ht 182.9 cm; Wt 75.0 kg
[2024-03-04 11:12] VITALS: TEMP 99
[2024-03-04] MEDS: haloperidol lactate 5mg/ml inj IM ONE (11:24)
[2024-03-04] MEDS: LORazepam 2 mg/ml vial IM ONE (11:25)
[2024-03-04] MEDS: diphenhydrAMINE 50 mg/ml inj IM ONE (11:25)
[2024-03-04 12:00] LABS: BASOPHILS # (AUTO) 0.1 X10'3 (0-0.2); BASOPHILS % (AUTO) 0.6 % (0-1); EOSINOPHILS % (AUTO) 0.3 % (0-6); HEMATOCRIT 44.2 % (42.0-52.0); HEMOGLOBIN 14.6 g/dl (14.0-17.9); LYMPHOCYTES # (AUTO) 4.1 X10'3 (1.1-4.8); MEAN CORPUSCULAR HEMOGLOBIN 29.8 PG (27.0-31.0); MEAN CORPUSCULAR HGB CONC 33.1 g/dL (33.0-36.5); MEAN CORPUSCULAR VOLUME 90.1 FL (78-98); MEAN PLATELET VOLUME 8.8 FL (7.4-10.4); NEUTROPHILS # (AUTO) 8.6 X10'3 (1.8-7.7); NEUTROPHILS % (AUTO) 62.1 % (42-75); PLATELET COUNT 260 X10'3 (140-440); RED BLOOD COUNT 4.91 X10'6 (4.70-6.10); RED CELL DISTRIBUTION WIDTH 12.3 % (11.5-14.5); WHITE BLOOD COUNT 13.8 X10'3 (4.5-11.0)
[2024-03-04] MEDS: metoclopramide 5 mg/ml inj IV ONE (12:02)
[2024-03-04 12:13] LABS: ALBUMIN 5.3 G/DL (3.4-5.0); ANION GAP 18 (8-16); BLOOD UREA NITROGEN 17 MG/DL (7-18); BUN/CREATININE RATIO 11.8 (10.0-20.0); CALCIUM 9.6 MG/DL (8.5-10.1); CHLORIDE 104 MMOL/L (99-107); CREATININE 1.44 MG/DL (0.60-1.10); GLUCOSE 119 MG/DL (70-104); POTASSIUM 3.3 MMOL/L (3.5-5.1); SODIUM 140 MMOL/L (135-145); TOTAL CARBON DIOXIDE 18.4 MMOL/L (24-32); eCRCL 85 ML/MIN; eGFR 61 ML/MIN
[2024-03-04] MEDS: LORazepam 2 mg/ml vial IV ONE (12:39)
[2024-03-04] MEDS: normal saline 1000ML IV soln IVB ONE (13:12)
[2024-03-04] MEDS ORDERED: haloperidol lactate 5mg/ml inj IM ONE (13:20)
[2024-03-04 14:49] VITALS: BP 134/80; PULSE 84; RESP 12; O2SAT 99
== END 2024-03-04 14:52 | disposition home or self-care (01) ==
LOC: ER 11:03
DX: R11.2 Nausea with vomiting, unspecified (principal); R10.84 Generalized abdominal pain; R56.9 Unspecified convulsions; F12.90 Cannabis use, unspecified, uncomplicated; F15.90 Other stimulant use, unspecified, uncomplicated; K31.84 Gastroparesis; Z88.8 Allergy status to other drugs, medicaments and biological substances; Z79.899 Other long term (current) drug therapy; Z87.19 Personal history of other diseases of the digestive system
CPT/HCPCS: 36415; 80048; 85025; 96361; 96372; 96374; 96375; 99284; J1200; J1630; J2060; J2765; J7030

== ENCOUNTER 2024-07-03 05:37 | Inpatient (IN) | payer MEDICAID ==
[~2024-07-03] VITALS: Ht 188 cm; Wt 77.3 kg
[2024-07-03] MEDS ORDERED: ONDA-245 PO (05:49)
[2024-07-03] MEDS ORDERED: LAMO25TA72 PO (05:49)
[2024-07-03] MEDS: haloperidol lactate 5mg/ml inj IVH ONE (06:10)
[2024-07-03] MEDS: proCHLORperazine 10 MG/2 ml inj IV ONE (06:13)
[2024-07-03] MEDS: LORazepam 2 mg/ml vial IV ONE (06:14)
[2024-07-03] MEDS: diphenhydrAMINE 50 mg/ml inj IV ONE (06:14)
[2024-07-03 06:23] LABS: BASOPHILS % (AUTO) 0.2 % (0-1); EOSINOPHILS % (AUTO) 0 % (0-6); HEMATOCRIT 42.2 % (42.0-52.0); HEMOGLOBIN 14.3 g/dl (14.0-17.9); LYMPHOCYTES # (AUTO) 1.1 X10'3 (1.1-4.8); LYMPHOCYTES % (AUTO) 7.1 % (21-51); MEAN CORPUSCULAR HEMOGLOBIN 29.5 PG (27.0-31.0); MEAN CORPUSCULAR VOLUME 86.9 FL (78-98); MEAN PLATELET VOLUME 8.6 FL (7.4-10.4); MONOCYTES # (AUTO) 0.7 X10'3 (0-0.9); MONOCYTES % (AUTO) 4.6 % (2-12); NEUTROPHILS # (AUTO) 13.1 X10'3 (1.8-7.7); NEUTROPHILS % (AUTO) 88.1 % (42-75); PLATELET COUNT 271 X10'3 (140-440); RED BLOOD COUNT 4.86 X10'6 (4.70-6.10); RED CELL DISTRIBUTION WIDTH 13.1 % (11.5-14.5); WHITE BLOOD COUNT 14.9 X10'3 (4.5-11.0)
[2024-07-03 06:31] LABS: ALANINE AMINOTRANSFERASE 39 U/L (12-78); ALBUMIN 4.8 G/DL (3.4-5.0); ALBUMIN/GLOBULIN RATIO 1.4 (1.1-1.5); ALKALINE PHOSPHATASE 91 IU/L (46-116); ANION GAP 17 (8-16); ASPARTATE AMINO TRANSFERASE 41 U/L (10-37); BILIRUBIN,TOTAL 1.1 MG/DL (0.1-1.0); BLOOD UREA NITROGEN 30 MG/DL (7-18); BUN/CREATININE RATIO 15.9 (10.0-20.0); CALCIUM 10.3 MG/DL (8.5-10.1); CHLORIDE 104 MMOL/L (99-107); CREATININE 1.89 MG/DL (0.60-1.10); GLUCOSE 200 MG/DL (70-104); LIPASE 23 U/L (16-77); POTASSIUM 3.4 MMOL/L (3.5-5.1); SODIUM 144 MMOL/L (135-145); TOTAL CARBON DIOXIDE 22.9 MMOL/L (24-32); TOTAL PROTEIN 8.2 G/DL (6.4-8.2); eCRCL 66 ML/MIN; eGFR 44 ML/MIN
[2024-07-03 07:33] LABS: MAGNESIUM 1.8 MG/DL (1.5-2.4)
[2024-07-03] MEDS ORDERED: potassium Cl 20 mEq SR tablet PO PRN ×2 (07:40)
[2024-07-03] MEDS ORDERED: acetaminophen 325mg tablet PO PRN ×2 (07:40)
[2024-07-03] MEDS ORDERED: magnesium hydroxide 30ml (MOM) UD suspension PO PRN (07:40)
[2024-07-03] MEDS ORDERED: mag hydrox/Alum hydrox/simeth 30ml oral suspension PO PRN (07:40)
[2024-07-03] MEDS ORDERED: magnesium sulf-water 2g/50mL 50 ML IV PRN (07:40)
[2024-07-03] MEDS ORDERED: potassium Cl 40MEQ/1/2NS 520ml 520 ML IV PRN (07:40)
[2024-07-03] MEDS ORDERED: magnesium sulf-water 4G/100mL 100 ML IV PRN (07:40)
[2024-07-03] MEDS: normal saline 1000ml 1,000 ML IV ONE (07:50)
[2024-07-03] MEDS: D5-1/2NS w/20 mEq potassium per 1000ml IV ONE (07:51)
[2024-07-03] MEDS: magnesium sulf-water 2g/50mL 50 ML IV ONE (07:51)
[2024-07-03] MEDS: K and/or MAG REPLACEMENT MC SCH (08:00)
[2024-07-03] MEDS: normal saline 1000ML IV soln IVB ONE (09:00)
[2024-07-03] MEDS: normal saline 1000ml 1,000 ML IV SCH (09:01)
[2024-07-03 10:26] LABS: BILIRUBIN,URINE NEGATIVE (Neg); CLARITY,URINE CLOUDY (Clear); COLOR,URINE YELLOW (Yellow); GLUCOSE, URINE NEGATIVE (Neg); KETONES,URINE >=80 mg/dl (Neg); LEUKOCYTE ESTERASE ,URINE NEGATIVE (Neg); NITRITES, URINE NEGATIVE (Neg); OCCULT BLOOD,URINE TRACE-INTACT (Neg); PROTEIN,URINE 30 mg/dl (Neg); UROBILINOGEN,URINE 0.2 E.U/dL (0.2-1.0)
[2024-07-03 10:48] LABS: UA COLLECTION TYPE URINAL
[2024-07-03] MEDS: ondansetron/PF 4mg/2ml inj IV PRN (10:51)
[2024-07-03 10:52] LABS: RBC,URINE NONE SEEN /HPF (0-2); WBC,URINE 0-4 /HPF (0-4)
[2024-07-03 10:53] LABS: MUCUS STRANDS FEW /LPF (Neg); SQUAMOUS EPITHELIAL CELL,UR FEW /LPF (FEW)
[2024-07-03] MEDS: docusate sod 100mg capsule PO SCH (10:55)
[2024-07-03] MEDS: CAPSAICIN HP (0.1%) cream TP SCH (10:55)
[2024-07-03 10:56] LABS: BACTERIA,URINE FEW /HPF (Neg)
[2024-07-03 10:57] LABS: AMORPHOUS PHOSPHATES 4+
[2024-07-03 11:19] VITALS: BP 149/80; PULSE 73; RESP 16; TEMP 100.6; O2SAT 97
[2024-07-03] MEDS: nicotine 21mg patch - 24 hr TD ONE (16:01)
[2024-07-03 17:02] LABS: ALANINE AMINOTRANSFERASE 41 U/L (12-78); ALBUMIN 4.5 G/DL (3.4-5.0); ALBUMIN/GLOBULIN RATIO 1.4 (1.1-1.5); ALKALINE PHOSPHATASE 81 IU/L (46-116); ANION GAP 13 (8-16); ASPARTATE AMINO TRANSFERASE 38 U/L (10-37); BILIRUBIN,TOTAL 0.8 MG/DL (0.1-1.0); BLOOD UREA NITROGEN 22 MG/DL (7-18); BUN/CREATININE RATIO 22.4 (10.0-20.0); CALCIUM 8.7 MG/DL (8.5-10.1); CHLORIDE 103 MMOL/L (99-107); CREATININE 0.98 MG/DL (0.60-1.10); GLUCOSE 164 MG/DL (70-104); SODIUM 139 MMOL/L (135-145); TOTAL CARBON DIOXIDE 22.8 MMOL/L (24-32); TOTAL PROTEIN 7.7 G/DL (6.4-8.2); eCRCL 128 ML/MIN; eGFR > 90 ML/MIN
[2024-07-03] MEDS: CefTRIAXone/D5W-Rocephin 1gm 50 ML IV ONE (17:20)
[2024-07-03] MEDS: LORazepam 2 mg/ml vial IV PRN (17:35)
[2024-07-03 18:00] VITALS: BP 145/86; PULSE 90; RESP 16; TEMP 100; O2SAT 100
[2024-07-03] MEDS: proCHLORperazine 10 MG/2 ml inj IV PRN (19:27)
[2024-07-03] MEDS: sincalide inj 1.5 MCG in normal saline 100ml IV soln 98.5 ML IV ONE (20:10)
[2024-07-03 22:00] VITALS: BP 132/77; PULSE 70; RESP 16; TEMP 98.4; O2SAT 98
[2024-07-03] MEDS: metoclopramide 5 mg/ml inj IV PRN (22:18)
[2024-07-04 05:46] LABS: BASOPHILS % (AUTO) 0.2 % (0-1); EOSINOPHILS % (AUTO) 0 % (0-6); HEMATOCRIT 38.5 % (42.0-52.0); HEMOGLOBIN 13.1 g/dl (14.0-17.9); LYMPHOCYTES # (AUTO) 1.2 X10'3 (1.1-4.8); LYMPHOCYTES % (AUTO) 8.8 % (21-51); MEAN CORPUSCULAR HEMOGLOBIN 29.8 PG (27.0-31.0); MEAN CORPUSCULAR HGB CONC 33.9 g/dL (33.0-36.5); MEAN CORPUSCULAR VOLUME 87.8 FL (78-98); MEAN PLATELET VOLUME 8.3 FL (7.4-10.4); MONOCYTES # (AUTO) 0.9 X10'3 (0-0.9); MONOCYTES % (AUTO) 6.6 % (2-12); NEUTROPHILS # (AUTO) 11.7 X10'3 (1.8-7.7); NEUTROPHILS % (AUTO) 84.4 % (42-75); PLATELET COUNT 205 X10'3 (140-440); RED BLOOD COUNT 4.39 X10'6 (4.70-6.10); RED CELL DISTRIBUTION WIDTH 13.1 % (11.5-14.5); WHITE BLOOD COUNT 13.8 X10'3 (4.5-11.0)
[2024-07-04 06:00] VITALS: BP 163/96; PULSE 67; RESP 18; TEMP 98.2; O2SAT 99
[2024-07-04 06:20] LABS: ALANINE AMINOTRANSFERASE 44 U/L (12-78); ALBUMIN 4.3 G/DL (3.4-5.0); ALBUMIN/GLOBULIN RATIO 1.3 (1.1-1.5); ALKALINE PHOSPHATASE 78 IU/L (46-116); ANION GAP 5 (8-16); ASPARTATE AMINO TRANSFERASE 39 U/L (10-37); BILIRUBIN,TOTAL 1.2 MG/DL (0.1-1.0); BLOOD UREA NITROGEN 18 MG/DL (7-18); BUN/CREATININE RATIO 21.7 (10.0-20.0); CALCIUM 8.6 MG/DL (8.5-10.1); CHLORIDE 106 MMOL/L (99-107); CREATININE 0.83 MG/DL (0.60-1.10); GLUCOSE 107 MG/DL (70-104); POTASSIUM 4.4 MMOL/L (3.5-5.1); SODIUM 142 MMOL/L (135-145); TOTAL CARBON DIOXIDE 31.5 MMOL/L (24-32); TOTAL PROTEIN 7.5 G/DL (6.4-8.2); eCRCL 150 ML/MIN; eGFR > 90 ML/MIN
[2024-07-04 06:35] LABS: MAGNESIUM 2.1 MG/DL (1.5-2.4)
[2024-07-04] MEDS: pantoprazole 40 MG vial IV SCH (07:20)
[2024-07-04] MEDS: nicotine 21mg patch - 24 hr TD SCH (07:20)
[2024-07-04] MEDS: CefTRIAXone/D5W-Rocephin 1gm 50 ML IV SCH (07:20)
[2024-07-04 10:00] VITALS: BP 119/58; PULSE 81; RESP 14; TEMP 99; O2SAT 98
[2024-07-04 16:50] VITALS: BP 151/83; PULSE 63; RESP 18; TEMP 99.3; O2SAT 97
[2024-07-04] MEDS ORDERED: lamoTRIgine 25mg tablet PO SCH (16:50)
[2024-07-04] MEDS: LORazepam 2 mg/ml vial IV ONE (16:54)
[2024-07-04] MEDS ORDERED: levetiracetam-NACL1000mg/100ml 100 ML IV SCH ×2 (17:00→20:00)
[2024-07-04] MEDS: lamoTRIgine 25mg tablet PO ONE (17:36)
[2024-07-04 18:00] VITALS: BP 139/78; PULSE 87; RESP 14; TEMP 98; O2SAT 100
[2024-07-04 18:27] LABS: CREATINE KINASE 930 U/L (39-308)
[2024-07-04 22:00] VITALS: BP 118/60; PULSE 60; RESP 16; TEMP 98.4; O2SAT 97
[2024-07-05] MEDS: LORazepam 2 mg/ml vial IV PRN (05:56)
[2024-07-05 06:00] VITALS: BP 144/96; PULSE 62; RESP 18; TEMP 98.3; O2SAT 100
[2024-07-05 06:08] LABS: BASOPHILS % (AUTO) 0.4 % (0-1); EOSINOPHILS % (AUTO) 0.5 % (0-6); HEMATOCRIT 37.7 % (42.0-52.0); HEMOGLOBIN 12.8 g/dl (14.0-17.9); LYMPHOCYTES # (AUTO) 2.2 X10'3 (1.1-4.8); LYMPHOCYTES % (AUTO) 24.8 % (21-51); MEAN CORPUSCULAR HEMOGLOBIN 29.9 PG (27.0-31.0); MEAN CORPUSCULAR HGB CONC 33.9 g/dL (33.0-36.5); MEAN CORPUSCULAR VOLUME 88.2 FL (78-98); MEAN PLATELET VOLUME 8.5 FL (7.4-10.4); MONOCYTES # (AUTO) 0.7 X10'3 (0-0.9); MONOCYTES % (AUTO) 8.1 % (2-12); NEUTROPHILS # (AUTO) 5.8 X10'3 (1.8-7.7); NEUTROPHILS % (AUTO) 66.2 % (42-75); PLATELET COUNT 173 X10'3 (140-440); RED BLOOD COUNT 4.28 X10'6 (4.70-6.10); RED CELL DISTRIBUTION WIDTH 12.9 % (11.5-14.5); WHITE BLOOD COUNT 8.7 X10'3 (4.5-11.0)
[2024-07-05 06:15] LABS: ALANINE AMINOTRANSFERASE 44 U/L (12-78); ALBUMIN 3.8 G/DL (3.4-5.0); ALBUMIN/GLOBULIN RATIO 1.3 (1.1-1.5); ALKALINE PHOSPHATASE 70 IU/L (46-116); ANION GAP 6 (8-16); ASPARTATE AMINO TRANSFERASE 33 U/L (10-37); BILIRUBIN,TOTAL 0.9 MG/DL (0.1-1.0); BLOOD UREA NITROGEN 13 MG/DL (7-18); BUN/CREATININE RATIO 18.1 (10.0-20.0); CALCIUM 8.5 MG/DL (8.5-10.1); CHLORIDE 106 MMOL/L (99-107); CREATININE 0.72 MG/DL (0.60-1.10); GLUCOSE 93 MG/DL (70-104); MAGNESIUM 2.2 MG/DL (1.5-2.4); POTASSIUM 3.7 MMOL/L (3.5-5.1); SODIUM 142 MMOL/L (135-145); TOTAL CARBON DIOXIDE 29.6 MMOL/L (24-32); TOTAL PROTEIN 6.7 G/DL (6.4-8.2); eCRCL 173 ML/MIN; eGFR > 90 ML/MIN
[2024-07-05] MEDS: lamoTRIgine 25mg tablet PO SCH (10:14)
== END 2024-07-05 13:19 | disposition home or self-care (01) | DRG 249 ==
LOC: ER 05:37 → ED HOLD 07:45 → ORTHO 4S 10:42
PROVIDERS: ADMIT Family Medicine; ATTEND Family Medicine
DX: R11.2 Nausea with vomiting, unspecified (principal); N17.0 Acute kidney failure with tubular necrosis; E87.20 Acidosis, unspecified; G40.909 Epilepsy, unspecified, not intractable, without status epilepticus; E87.6 Hypokalemia; F29 Unspecified psychosis not due to a substance or known physiological condition; F31.9 Bipolar disorder, unspecified; F12.10 Cannabis abuse, uncomplicated; Z83.3 Family history of diabetes mellitus; Z87.891 Personal history of nicotine dependence
CPT/HCPCS: 36415; 71045; 74176; 78226; 80053; 81001; 82550; 83605; 83690; 83735; 84145; 85025; 87040; 87081; 93005; 99285; A9537; G0378; J0696; J0780; J1200; J1630; J2060; J2405; J2470; J2765; J3480; J7030

== ENCOUNTER 2025-02-18 17:13 | Emergency (ER) | payer MEDICAID ==
[~2025-02-18] VITALS: Ht 188 cm; Wt 75.0 kg
[~2025-02-18 17:13] MED LIST changes: +LAMO25TA72 PO; +ONDA-245 PO
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
[2025-02-18] MEDS: haloperidol lactate 5mg/ml inj IM ONE (18:46)
[2025-02-18 18:49] VITALS: BP 120/100; PULSE 87; RESP 24; TEMP 97.7; O2SAT 95
== END 2025-02-18 18:51 | disposition home or self-care (01) ==
LOC: ER 17:13
DX: R11.15 Cyclical vomiting syndrome unrelated to migraine (principal); F12.90 Cannabis use, unspecified, uncomplicated; F15.90 Other stimulant use, unspecified, uncomplicated; F10.90 Alcohol use, unspecified, uncomplicated; F31.9 Bipolar disorder, unspecified; Z87.19 Personal history of other diseases of the digestive system; Z91.048 Other nonmedicinal substance allergy status; Z79.899 Other long term (current) drug therapy; Z98.890 Other specified postprocedural states; Y90.9 Presence of alcohol in blood, level not specified
CPT/HCPCS: 96372; 99285; J1630